=== PATIENT | female | born 1955 | race Caucasian/White ===

== ENCOUNTER 2016-09-01 11:43 | Emergency (ER) | payer BC ==
[2016-09-01 11:54] VITALS: TEMP 97.5
--- NOTE | 2016-09-01 12:36 | ED ---
General Adult HPI - General Chief complaint: Recheck/Abnormal Lab/Rx Stated complaint: Hypertension Time Seen by Provider: 09/01/16 12:19 Source: patient Mode of arrival: ambulatory Limitations: no limitations - History of Present Illness Initial comments: 60-year-old female presents with headache this morning her blood pressure was elevated to 180/117. She's had no blurry vision or double vision no focal numbness or weakness no nausea no vomiting no stiff neck. Blood pressure here is much improved. Several long history of hypertension only takes hydrochlorothiazide states her last visit was satisfactory. She also states for quite sometime she's had some intermittent swelling in anterior neck and submandibular area with some burning in the tip of her tongue. She has no nausea vomiting no chest pain no shortness of breath no nausea vomiting diarrhea. - Related Data Home Medications Medication Instructions Recorded Confirmed Aspirin 81 mg PO DAILY 06/18/14 09/01/16 Hydrochlorothiazide 25 mg PO DAILY 06/18/14 09/01/16 Citalopram Hydrobromide [CeleXA] 20 mg PO DAILY 06/21/16 09/01/16 Risedronate Sodium 150 mg PO Q28D 09/01/16 09/01/16 Previous Rx's Medication Instructions Recorded amLODIPine [Norvasc] 5 mg PO DAILY #7 tab 09/01/16 Allergies Allergy/AdvReac Type Severity Reaction Status Date / Time No Known Allergies Allergy Verified 09/01/16 14:24 Review of Systems ROS Statement: Those systems with pertinent positive or pertinent negative responses have been documented in the HPI. ROS Other: All systems not noted in ROS Statement are negative. Constitutional: Denies: fever Eyes: Denies: eye pain, eye discharge ENT: Denies: ear pain, throat pain Respiratory: Denies: cough Cardiovascular: Denies: chest pain Gastrointestinal: Denies: abdominal pain, nausea, vomiting Genitourinary: Denies: urgency, dysuria, frequency Skin: Denies: rash Neurological: Reports: headache. Denies: weakness Psychiatric: Denies: anxiety, depression Hematological/Lymphatic: Denies: easy bleeding, easy bruising Past Medical History Past Medical History: Hypertension, Thyroid Disorder Additional Past Medical History / Comment(s): cataracts History of Any Multi-Drug Resistant Organisms: None Reported Past Surgical History: Adenoidectomy, Section, Hysterectomy, Joint Replacement, Tonsillectomy Additional Past Surgical History / Comment(s): disc fusions in the neck and back. bunionectomy, eye surgery Past Psychological History: Anxiety Additional Psychological History / Comment(s): taking valium prior to Thyroid biopsy scheduled for Jun 21 Smoking Status: Current every day smoker Past Alcohol Use History: None Reported Past Drug Use History: None Reported General Exam Limitations: no limitations General appearance: alert Head exam: Present: atraumatic Eye exam: Present: normal appearance, PERRL, EOMI ENT exam: Present: normal oropharynx, mucous membranes moist, TM's normal bilaterally Neck exam: Present: normal inspection. Absent: tenderness, meningismus Respiratory exam: Present: normal lung sounds bilaterally Cardiovascular Exam: Present: regular rate, normal heart sounds GI/Abdominal exam: Present: soft. Absent: tenderness, guarding Neurological exam: Present: alert, CN II-XII intact Psychiatric exam: Present: normal affect, normal mood Skin exam: Present: warm, dry Course Vital Signs 09/01/16 09/01/16 11:52 13:40 Temperature 97.5 F L Pulse Rate 89 79 Respiratory 20 16 Rate Blood Pressure 158/85 137/83 O2 Sat by Pulse 99 95 Oximetry Medical Decision Making - Medical Decision Making Blood pressures normalized still has somewhat of a headache with the recurrent swelling question of it could be secondary to her hydrochlorothiazide may be inadequate to smooth out her blood pressure would discontinue the hydrochlorothiazide started on Norvasc 5 mg daily and give her 7 days pending seeing her physician. May use Tylenol or Motrin. - Lab Data Result diagrams: 09/01/16 13:10 09/01/16 13:10 Lab Results 09/01/16 09/01/16 Range/Units 13:10 13:10 WBC 6.9 (3.8-10.6) k/uL RBC 5.26 (3.80-5.40) m/uL Hgb 15.3 (11.4-16.0) gm/dL Hct 47.4 H (34.0-46.0) % MCV 90.2 (80.0-100.0) fL MCH 29.0 (25.0-35.0) pg MCHC 32.2 (31.0-37.0) g/dL RDW 13.3 (11.5-15.5) % Plt Count 206 (150-450) k/uL Neutrophils % 77 % Lymphocytes % 10 % Monocytes % 6 % Eosinophils % 3 % Basophils % 1 % Neutrophils # 5.3 (1.3-7.7) k/uL Lymphocytes # 0.7 L (1.0-4.8) k/uL Monocytes # 0.4 (0-1.0) k/uL Eosinophils # 0.2 (0-0.7) k/uL Basophils # 0.1 (0-0.2) k/uL Sodium 143 (137-145) mmol/L Potassium 4.2 (3.5-5.1) mmol/L Chloride 103 (98-107) mmol/L Carbon Dioxide 30 (22-30) mmol/L Anion Gap 10 mmol/L BUN 20 H (7-17) mg/dL Creatinine 0.82 (0.52-1.04) mg/dL Est GFR (MDRD) Af Amer >60 (>60 ml/min/1.73 sqM) Est GFR (MDRD) Non-Af >60 (>60 ml/min/1.73 sqM) Glucose 90 (74-99) mg/dL Calcium 10.0 (8.4-10.2) mg/dL Total Bilirubin 0.8 (0.2-1.3) mg/dL AST 23 (14-36) U/L ALT 30 (9-52) U/L Alkaline Phosphatase 68 (38-126) U/L Total Protein 7.2 (6.3-8.2) g/dL Albumin 4.5 (3.5-5.0) g/dL - EKG Data -: EKG Interpreted by Me 09/01/16 14:09 ECG 09/02/1999 01/03/1929 ventricular rate 70 bpm, NJ interval 136 ms, QRS duration 78 ms, QT interval 396 ms normal sinus rhythm normal ECG - Radiology Data Radiology results: report reviewed CT no abnormalities Disposition Clinical Impression: Headache, Elevated blood pressure reading, Hypertension Disposition: HOME SELF-CARE Condition: Good Instructions: Hypertension (ED) Additional Instructions: Discontinue hydrochlorothiazide, start Norvasc and see Dr. Chadwick this week. May use Tylenol or ibuprofen or Aleve for headache. Prescriptions: amLODIPine [Norvasc] 5 mg PO DAILY #7 tab Time of Disposition: 14:35
[2016-09-01 13:24] LABS: Basophils # (A) 0.1 k/uL (0-0.2); Basophils % (A) 1 %; CHCM 33.4; Eosinophils # (A) 0.2 k/uL (0-0.7); Eosinophils % (A) 3 %; HCT 47.4 % (34.0-46.0); HDW 2.36; HGB 15.3 gm/dL (11.4-16.0); Luc % (Auto) 3; Lymphocytes # (A) 0.7 k/uL (1.0-4.8); Lymphocytes % (A) 10 %; MCHC 32.2 g/dL (31.0-37.0); MCV 90.2 fL (80.0-100.0); Mean Platelet Volume 7.4; Monocytes # (A) 0.4 k/uL (0-1.0); Monocytes % (A) 6 %; Neutrophils # (A) 5.3 k/uL (1.3-7.7); Neutrophils % (A) 77 %; RBC 5.26 m/uL (3.80-5.40); RDW 13.3 % (11.5-15.5); WBC 6.9 k/uL (3.8-10.6); WBC (Perox) 7.13
[2016-09-01 13:28] LABS: ALT 30 U/L (9-52); AST 23 U/L (14-36); Alkaline Phosphatase 68 U/L (38-126); Anion Gap 10 mmol/L; Blood Urea Nitrogen 20 mg/dL (7-17); Carbon Dioxide 30 mmol/L (22-30); Chloride 103 mmol/L (98-107); Glucose 90 mg/dL (74-99); Non-African American GFR(MDRD) >60 (>60 ml/min/1.73 sqM); Potassium 4.2 mmol/L (3.5-5.1); Sodium 143 mmol/L (137-145); Total Bilirubin 0.8 mg/dL (0.2-1.3); Total Protein 7.2 g/dL (6.3-8.2)
[2016-09-01 13:42] VITALS: BP 137/83; PULSE 79; RESP 16
--- NOTE | 2016-09-01 13:47 | CT ---
EXAMINATION TYPE: CT brain wo con DATE OF EXAM: 09/01/2016 1:41 PM COMPARISON: NONE HISTORY: Headache and Hypertension CT DLP: 1029.9 mGycm Automated exposure control for dose reduction was used. FINDINGS: Ventricles and sulci appear normal. There is no mass effect nor midline shift. There is no sign of in tracranial hemorrhage. The calvarium is intact. IMPRESSION: Negative unenhanced head CT scan. No change.
== END 2016-09-01 14:50 | disposition home or self-care (01) ==
LOC: EC 11:43
DX: I10 Essential (primary) hypertension (principal); F41.9 Anxiety disorder, unspecified; F17.200 Nicotine dependence, unspecified, uncomplicated; Z79.82 Long term (current) use of aspirin; Z79.899 Other long term (current) drug therapy
CPT/HCPCS: 36415; 70450; 80053; 85025; 93005; 99284

== ENCOUNTER 2016-09-05 10:41 | Emergency (ER) | payer BC ==
[2016-09-05 10:48] VITALS: TEMP 97.3
[2016-09-05] MEDS ORDERED: SODIUM CHLORIDE 0.9% 500 ML IV STA (11:44)
[2016-09-05] MEDS ORDERED: hydrALAZINE HCL 20 MG/ML 1 ML VIAL IVP STA (11:51)
--- NOTE | 2016-09-05 11:54 | ED ---
General Adult HPI - General Chief complaint: Recheck/Abnormal Lab/Rx Stated complaint: HTN Time Seen by Provider: 09/05/16 11:45 Source: patient, RN notes reviewed Mode of arrival: ambulatory Limitations: no limitations - History of Present Illness Initial comments: This is a 60-year-old female presents emergency Department with a past medical history significant for high blood pressure. Patient states she was recently in the emergency department for hypertension. Patient states she seen her primary medical care doctor and they have attempted to change her medications. Patient states today she started getting very mild headache she took a blood pressure work and it was elevated so she came to the emergency department. Patient states she has no significant headache at this time. Patient denies numbness weakness per patient denies blurred vision. Patient denies chest pain palpitations difficult breathing shortness of breath. Patient denies any abdominal pain. Patient denies nausea vomiting diarrhea. Patient denies any back pain. Patient denies any recent injury or trauma. - Related Data Home Medications Medication Instructions Recorded Confirmed Aspirin 81 mg PO DAILY 06/18/14 09/05/16 Citalopram Hydrobromide [CeleXA] 20 mg PO DAILY 06/21/16 09/05/16 Risedronate Sodium 150 mg PO Q28D 09/01/16 09/05/16 amLODIPine [Norvasc] 10 mg PO DAILY 09/05/16 09/05/16 Allergies Allergy/AdvReac Type Severity Reaction Status Date / Time No Known Allergies Allergy Verified 09/05/16 11:42 Review of Systems ROS Statement: Those systems with pertinent positive or pertinent negative responses have been documented in the HPI. ROS Other: All systems not noted in ROS Statement are negative. Past Medical History Past Medical History: Hypertension, Thyroid Disorder Additional Past Medical History / Comment(s): cataracts, back pain History of Any Multi-Drug Resistant Organisms: None Reported Past Surgical History: Adenoidectomy, Section, Hysterectomy, Joint Replacement, Tonsillectomy Additional Past Surgical History / Comment(s): disc fusions in the neck and back. bunionectomy, eye surgery Past Psychological History: Anxiety Additional Psychological History / Comment(s): taking valium prior to Thyroid biopsy scheduled for Jun 21 Smoking Status: Current every day smoker Past Alcohol Use History: None Reported Past Drug Use History: None Reported General Exam - General Exam Comments Initial Comments: GENERAL: Patient is well-developed and well-nourished. Patient is nontoxic and well- hydrated and is in no acute distress. ENT: Neck is soft and supple. No significant lymphadenopathy is noted. Oropharynx is clear. Moist mucous membranes. Neck has full range of motion without eliciting any pain. EYES: The sclera were anicteric and conjunctiva were pink and moist. Extraocular movements were intact and pupils were equal round and reactive to light. Eyelids were unremarkable. PULMONARY: Unlabored respirations. Good breath sounds bilaterally. No audible rales rhonchi or wheezing was noted. CARDIOVASCULAR: There is a regular rate and rhythm without any murmurs gallops or rubs. ABDOMEN: Soft and nontender with normal bowel sounds. No palpable organomegaly was noted. There is no palpable pulsatile mass. SKIN: Skin is clear with no lesions or rashes and otherwise unremarkable. NEUROLOGIC: Patient is alert and oriented x3. Cranial nerves II through XII are grossly intact. Motor and sensory are also intact. Normal speech, volume and content. Symmetrical smile. MUSCULOSKELETAL: Normal extremities with adequate strength and full range of motion. No lower extremity swelling or edema. No calf tenderness. LYMPHATICS: No significant lymphadenopathy is noted PSYCHIATRIC: Normal psychiatric evaluation. Normal interpersonal interactions appears functionally intact in deals appropriately with others. No signs of depression. No signs of anxiety. Limitations: no limitations Course Vital Signs 09/05/16 09/05/16 09/05/16 10:44 11:08 11:19 Temperature 97.3 F L Pulse Rate 92 81 Pulse Rate [ 82 Bilateral Posterior Tibial] Respiratory 18 15 Rate Blood Pressure 172/100 151/90 O2 Sat by Pulse 98 96 Oximetry 09/05/16 09/05/16 09/05/16 12:22 12:51 13:10 Temperature Pulse Rate 70 76 81 Pulse Rate [ Bilateral Posterior Tibial] Respiratory 18 18 18 Rate Blood Pressure 151/93 150/94 141/89 O2 Sat by Pulse 97 97 96 Oximetry Medical Decision Making - Medical Decision Making EKG shows normal sinus rhythm at 81 bpm SC interval is on a 34 QRS 78 QT interval 384 QTC is 446 per patient's EKG shows no ST segment elevation or depression or T-wave abdomen is noted. Chest x-ray is normal. Patient was given hydralazine blood pressure came down nicely patient understands he needs to follow-up with her primary medical care doctor and also document daily her blood pressures. - Lab Data Result diagrams: 09/05/16 11:20 09/05/16 11:20 Lab Results 09/05/16 09/05/16 09/05/16 Range/Units 11:20 11:20 11:20 WBC 7.0 (3.8-10.6) k/uL RBC 4.70 (3.80-5.40) m/uL Hgb 14.4 (11.4-16.0) gm/dL Hct 43.0 (34.0-46.0) % MCV 91.6 (80.0-100.0) fL MCH 30.7 (25.0-35.0) pg MCHC 33.5 (31.0-37.0) g/dL RDW 13.3 (11.5-15.5) % Plt Count 205 (150-450) k/uL Neutrophils % 71 % Lymphocytes % 15 % Monocytes % 7 % Eosinophils % 2 % Basophils % 1 % Neutrophils # 5.0 (1.3-7.7) k/uL Lymphocytes # 1.0 (1.0-4.8) k/uL Monocytes # 0.5 (0-1.0) k/uL Eosinophils # 0.2 (0-0.7) k/uL Basophils # 0.1 (0-0.2) k/uL PT (9.0-12.0) sec INR (<1.1) APTT (22.0-30.0) sec Sodium 143 (137-145) mmol/L Potassium 4.0 (3.5-5.1) mmol/L Chloride 108 H (98-107) mmol/L Carbon Dioxide 24 (22-30) mmol/L Anion Gap 11 mmol/L BUN 14 (7-17) mg/dL Creatinine 0.63 (0.52-1.04) mg/dL Est GFR (MDRD) Af Amer >60 (>60 ml/min/1.73 sqM) Est GFR (MDRD) Non-Af >60 (>60 ml/min/1.73 sqM) Glucose 94 (74-99) mg/dL Calcium 9.8 (8.4-10.2) mg/dL Magnesium 2.1 (1.6-2.3) mg/dL Total Bilirubin 0.7 (0.2-1.3) mg/dL AST 24 (14-36) U/L ALT 37 (9-52) U/L Alkaline Phosphatase 66 (38-126) U/L Total Creatine Kinase 131 (30-135) U/L CK-MB (CK-2) 1.3 (0.0-2.4) ng/mL CK-MB (CK-2) Rel Index 1.0 Troponin I <0.012 (0.000-0.034) ng/mL Total Protein 7.2 (6.3-8.2) g/dL Albumin 4.6 (3.5-5.0) g/dL 09/05/16 Range/Units 11:20 WBC (3.8-10.6) k/uL RBC (3.80-5.40) m/uL Hgb (11.4-16.0) gm/dL Hct (34.0-46.0) % MCV (80.0-100.0) fL MCH (25.0-35.0) pg MCHC (31.0-37.0) g/dL RDW (11.5-15.5) % Plt Count (150-450) k/uL Neutrophils % % Lymphocytes % % Monocytes % % Eosinophils % % Basophils % % Neutrophils # (1.3-7.7) k/uL Lymphocytes # (1.0-4.8) k/uL Monocytes # (0-1.0) k/uL Eosinophils # (0-0.7) k/uL Basophils # (0-0.2) k/uL PT 9.6 (9.0-12.0) sec INR 0.9 (<1.1) APTT 23.9 (22.0-30.0) sec Sodium (137-145) mmol/L Potassium (3.5-5.1) mmol/L Chloride (98-107) mmol/L Carbon Dioxide (22-30) mmol/L Anion Gap mmol/L BUN (7-17) mg/dL Creatinine (0.52-1.04) mg/dL Est GFR (MDRD) Af Amer (>60 ml/min/1.73 sqM) Est GFR (MDRD) Non-Af (>60 ml/min/1.73 sqM) Glucose (74-99) mg/dL Calcium (8.4-10.2) mg/dL Magnesium (1.6-2.3) mg/dL Total Bilirubin (0.2-1.3) mg/dL AST (14-36) U/L ALT (9-52) U/L Alkaline Phosphatase (38-126) U/L Total Creatine Kinase (30-135) U/L CK-MB (CK-2) (0.0-2.4) ng/mL CK-MB (CK-2) Rel Index Troponin I (0.000-0.034) ng/mL Total Protein (6.3-8.2) g/dL Albumin (3.5-5.0) g/dL Disposition Clinical Impression: Hypertension Disposition: HOME SELF-CARE Condition: Good Instructions: Hypertension (ED) Referrals: Carmelita Chadwick MD [Primary Care Provider] - 1-2 days Time of Disposition: 13:33
--- NOTE | 2016-09-05 12:27 | XR ---
EXAMINATION TYPE: XR chest 2V DATE OF EXAM: 09/05/2016 12:13 PM COMPARISON: 04/27/2015 TECHNIQUE: PA and lateral views submitted. HISTORY: Chest pain FINDINGS: The lungs are clear and there is no pneumothorax, pleural effusion, or focal pneumonia. Postsurgica l change overlying the cervical spine. IMPRESSION: 1. No acute process.
[2016-09-05 12:28] LABS: Basophils # (A) 0.1 k/uL (0-0.2); Basophils % (A) 1 %; CH 30.3; CHCM 33.2; Eosinophils # (A) 0.2 k/uL (0-0.7); Eosinophils % (A) 2 %; HDW 2.36; HGB 14.4 gm/dL (11.4-16.0); Luc # (Auto) 0.25; Luc % (Auto) 4; Lymphocytes % (A) 15 %; MCH 30.7 pg (25.0-35.0); MCHC 33.5 g/dL (31.0-37.0); MCV 91.6 fL (80.0-100.0); Mean Platelet Volume 8.7; Monocytes # (A) 0.5 k/uL (0-1.0); Monocytes % (A) 7 %; Neutrophils % (A) 71 %; RDW 13.3 % (11.5-15.5)
[2016-09-05 12:39] LABS: INR 0.9 (<1.1); Partial Thromboplastin Time 23.9 sec (22.0-30.0); Prothrombin Time 9.6 sec (9.0-12.0)
[2016-09-05 12:42] LABS: ALT 37 U/L (9-52); AST 24 U/L (14-36); Alkaline Phosphatase 66 U/L (38-126); Anion Gap 11 mmol/L; Blood Urea Nitrogen 14 mg/dL (7-17); Calcium 9.8 mg/dL (8.4-10.2); Carbon Dioxide 24 mmol/L (22-30); Chloride 108 mmol/L (98-107); Glucose 94 mg/dL (74-99); Magnesium 2.1 mg/dL (1.6-2.3); Non-African American GFR(MDRD) >60 (>60 ml/min/1.73 sqM); Sodium 143 mmol/L (137-145); Total Bilirubin 0.7 mg/dL (0.2-1.3); Total Protein 7.2 g/dL (6.3-8.2)
[2016-09-05 13:03] LABS: Creatine Kinase 131 U/L (30-135)
[2016-09-05 13:16] LABS: Creatine Kinase MB 1.3 ng/mL (0.0-2.4); Troponin I <0.012 ng/mL (0.000-0.034)
[2016-09-05 14:52] VITALS: BP 138/82; PULSE 80; RESP 16
== END 2016-09-05 15:02 | disposition home or self-care (01) ==
LOC: EC 10:41
DX: I10 Essential (primary) hypertension (principal); F41.9 Anxiety disorder, unspecified; F17.200 Nicotine dependence, unspecified, uncomplicated; Z79.82 Long term (current) use of aspirin; Z79.899 Other long term (current) drug therapy
CPT/HCPCS: 36415; 93005; 80053; 82550; 82553; 83735; 84484; 85025; 85610; 85730; 71020; 99284; 96374; 96361 ×2; J0360

== ENCOUNTER → 2016-09-14 | Outpatient (CLI) | payer BC ==
--- NOTE | 2016-09-14 23:16 | MR ---
EXAMINATION TYPE: MR cspine/lspine wo/w con DATE OF EXAM: 09/14/2016 6:15 PM COMPARISON: NONE HISTORY: Low back pain and Neck pain CONTRAST: Standard multiplanar, multisequence MRI departmental protocol utilizing 20 mL intravenous MultiHance gadolinium contrast. FINDINGS: There is mild straightening of the cervical spine. There is metal artifact from anterior fu any surgery at C4-5. Cervical spinal cord shows no edema. There is a moderate-sized posterior disc h erniation at C5-6 into the spinal canal. There is flattening of the cervical spinal cord. The canal i s narrowed to 5 mm. There is small posterior disc herniation at C6-7. There is a mild to moderate pos terior disc herniation at C3-4. The brainstem is intact. I see no focal bone destruction. I see no pa thologic enhancement in the cervical spine. The lumbar vertebra have normal alignment. There is some narrowing at L5-S1 disc space. There are sma ll posterior disc bulges at L4-5 and L5-S1 without significant impingement on the spinal canal. There is no lumbar paraspinal mass. Lumbar nerve roots appear fairly normal. There is bilateral L4-5 and L 5-S1 neural foraminal impingement due to some facet arthropathy and mild disc space narrowing. There is no focal bone destruction. There is no pathologic enhancement in the lumbar spine. IMPRESSION: The cervical spine shows a large posterior disc herniation at C5-6 with 5 mm moderately severe spinal stenosis. There are smaller posterior disc herniations at C3-4 and C6-7 with less severe impingement on the cord. There are small posterior disc herniations at L4-5 L5-S1 without significant impingement on the spina l canal. There is mild neural foraminal narrowing at L4-5 L5-S1 due to some facet arthropathy and mil d disc space narrowing.
== END | disposition home or self-care (01) ==
LOC: RADMRIMAIN 16:29
PROVIDERS: ATTEND Orthopaedic Surgery Orthopaedic Surgery of the Spine
DX: M48.07 Spinal stenosis, lumbosacral region (principal); M99.73 Connective tissue and disc stenosis of intervertebral foramina of lumbar region; M51.17 Intervertebral disc disorders with radiculopathy, lumbosacral region; M46.97 Unspecified inflammatory spondylopathy, lumbosacral region; M48.02 Spinal stenosis, cervical region; M50.21 Other cervical disc displacement, high cervical region
CPT/HCPCS: 72156; 72158; A9577

== ENCOUNTER → 2017-01-04 | Outpatient (CLI) | payer BC, OTHER ==
--- NOTE | 2017-01-04 12:12 | XR ---
Cervical spine with flexion and extension views HISTORY: Neck pain 7 views of the cervical spine Correlation to cervical MRI dated 09/14/2016 Patient is status post anterior cervical fusion and discectomy at C4-C7. Surgical clips are present i n the anterior neck. There is loss of normal cervical lordosis. Near anatomic alignment present. Inte rvertebral spacing material noted. No evident listhesis on flexion and extension views. Screws are no t present at the C6 level. Neural foraminal encroachment present at C6-7 bilaterally as well as on th e right side at C5-6. IMPRESSION: Postop follow-up. Additional findings above.
== END | disposition home or self-care (01) ==
LOC: RADXRMAIN 09:46
PROVIDERS: ATTEND Neurological Surgery
DX: M54.2 Cervicalgia (principal); Z98.890 Other specified postprocedural states
CPT/HCPCS: 72052

== ENCOUNTER → 2017-03-25 | Outpatient (CLI) | payer BC, OTHER ==
--- NOTE | 2017-03-25 12:33 | XR ---
EXAMINATION TYPE: XR cervical spine w flex/ext DATE OF EXAM: 03/25/2017 TECHNIQUE: Frontal, lateral, oblique, dynamic flexion-extension lateral views, and open mouth view of the cervical spine are obtained. HISTORY: R52 pain cervical fusion progress study. Attention C7-T1 level per order. COMPARISON: Cervical spine x-ray January 04, 2017 FINDINGS: The cervical spine is visualized in its entirety from C1 thru the top of T1 level, it is s table and straightened in alignment without evidence of acute fracture or dislocation. There is redem onstration artificial disc material C4-C5 level. There appears to be ossific fusion C5-C6 level. Ante rior fusion plate from C4 through C7 levels with additional C5 screws is redemonstrated. There likely is also ossific fusion C5-C6 level redemonstrated. Dynamic images show limited flexion and extension . Vertebral body heights and disc space heights above surgical levels are within normal limits. There are surgical clips in the anterior left soft tissue redemonstrated. Right oblique image is technical ly suboptimal. Left oblique image is stable and satisfactory. Interval resolution of subcutaneous air noted. C7-T1 disc space is felt stable and within normal limits. IMPRESSION: As above, desired arthrodesis with straightened and satisfactory alignment.
== END | disposition home or self-care (01) ==
LOC: RADXRMAIN 11:39
PROVIDERS: ATTEND Neurological Surgery
DX: M54.2 Cervicalgia (principal); Z98.1 Arthrodesis status
CPT/HCPCS: 72052

== ENCOUNTER 2017-07-11 01:53 | Observation (INO) | payer BC, OTHER ==
[2017-07-11] MEDS ORDERED: ACETAMINOPHEN TAB 325 MG TAB PO STA (02:25)
[2017-07-11] MEDS ORDERED: SODIUM CHLORIDE 0.9% 1,000 ML IV STA (02:25)
--- NOTE | 2017-07-11 02:41 | ED ---
General Adult HPI - General Source: patient, RN notes reviewed Mode of arrival: ambulatory Limitations: no limitations <Gab Machado - Last Filed: 07/11/17 03:32> <Clayton Perez - Last Filed: 07/11/17 03:43> - General Chief complaint: Urogenital Stated complaint: chills Time Seen by Provider: 07/11/17 02:13 - History of Present Illness Initial comments: This a 61-year-old female presents emergency Department chief complaint fever or chills vaginal bleeding. Patient states that she noticed today that she's been having chills she noticed some dysuria. Patient also states that she had sexual intercourse for the first time in 10 years ton and states that after she noticed that she had some vaginal bleeding. She states is bright red she does admit to some pain when she tries to urinate but denies any vaginal pain otherwise. Patient denies any forceful trauma. Patient states that the bleeding is slowing down. Patient denies any URI symptoms denies sore throat, cough, chest congestion, chest pain, palpitations, nausea, vomiting diarrhea constipation. (Gab Machado) - Related Data Home Medications Medication Instructions Recorded Confirmed Aspirin 81 mg PO DAILY 06/18/14 07/11/17 Citalopram Hydrobromide [CeleXA] 20 mg PO DAILY 06/21/16 07/11/17 Risedronate Sodium 150 mg PO Q28D 09/01/16 07/11/17 amLODIPine [Norvasc] 10 mg PO DAILY 09/05/16 07/11/17 Allergies Allergy/AdvReac Type Severity Reaction Status Date / Time No Known Allergies Allergy Verified 07/11/17 02:07 Review of Systems ROS Other: All systems not noted in ROS Statement are negative. <Gab Machado - Last Filed: 07/11/17 03:32> ROS Other: All systems not noted in ROS Statement are negative. <Clayton Perez - Last Filed: 07/11/17 03:43> ROS Statement: Those systems with pertinent positive or pertinent negative responses have been documented in the HPI. Past Medical History Past Medical History: Hypertension, Thyroid Disorder Additional Past Medical History / Comment(s): cataracts, back pain History of Any Multi-Drug Resistant Organisms: None Reported Past Surgical History: Adenoidectomy, Section, Hysterectomy, Joint Replacement, Tonsillectomy Additional Past Surgical History / Comment(s): disc fusions in the neck and back. bunionectomy, eye surgery Past Psychological History: Anxiety Smoking Status: Current every day smoker Past Alcohol Use History: None Reported Past Drug Use History: None Reported <Gab Machado - Last Filed: 07/11/17 03:32> General Exam Limitations: no limitations General appearance: alert, in no apparent distress Head exam: Present: atraumatic, normocephalic, normal inspection Eye exam: Present: normal appearance, PERRL, EOMI. Absent: scleral icterus, conjunctival injection, periorbital swelling ENT exam: Present: normal exam, normal oropharynx, mucous membranes moist, TM's normal bilaterally Neck exam: Present: normal inspection, full ROM. Absent: tenderness, meningismus, lymphadenopathy Respiratory exam: Present: normal lung sounds bilaterally. Absent: respiratory distress, wheezes, rales, rhonchi, stridor Cardiovascular Exam: Present: normal rhythm, tachycardia, normal heart sounds. Absent: systolic murmur, diastolic murmur, rubs, gallop, clicks GI/Abdominal exam: Present: soft, normal bowel sounds. Absent: distended, tenderness, guarding, rebound, rigid External exam: Present: normal external exam, other (Exam performed with Josey RN) Speculum exam: Present: vaginal bleeding, laceration (There is a small laceration with blood clot noted, no active bleeding) Skin exam: Present: warm, dry, intact, normal color. Absent: rash <Gab Machado - Last Filed: 07/11/17 03:32> Course <Gab Machado - Last Filed: 07/11/17 03:32> <Clayton Perez - Last Filed: 07/11/17 03:43> Vital Signs 07/11/17 07/11/17 02:04 03:25 Temperature 100.2 F H Pulse Rate 132 H 102 H Respiratory 20 18 Rate Blood Pressure 140/89 145/60 O2 Sat by Pulse 97 97 Oximetry - Reevaluation(s) Reevaluation #1: 07/11/17 03:42 Patient was reevaluated by myself, Dr. Perez. Patient does meet criteria for severe sepsis diagnosed at 3:42 AM. Blood cultures and lactic acid and IV antibiotics have been ordered. Case was discussed with practitioner Nakita, who will admit for Dr. Chin, covering for Dr. Bains. Patient was updated. (Clayton Perez) Medical Decision Making - Lab Data Result diagrams: 07/11/17 02:42 07/11/17 02:42 <Gab Machado - Last Filed: 07/11/17 03:32> - Lab Data Result diagrams: 07/11/17 02:42 07/11/17 02:42 <Clayton Perez - Last Filed: 07/11/17 03:43> - Medical Decision Making 61-year-old female presented emergency department for chills, vaginal bleeding dysuria. Patient Atelectatic Acid of 3.0, Mild leukocytosis, along with being tachycardic and fever. Concerns for severe sepsis. Patient will be given Rocephin, admitted for IV antibiotics, pending urine and blood culture. (Gab Machado) - Lab Data Lab Results 07/11/17 07/11/17 07/11/17 Range/Units 02:31 02:31 02:42 WBC 11.1 H (3.8-10.6) k/uL RBC 4.93 (3.80-5.40) m/uL Hgb 14.5 (11.4-16.0) gm/dL Hct 45.7 (34.0-46.0) % MCV 92.9 (80.0-100.0) fL MCH 29.4 (25.0-35.0) pg MCHC 31.6 (31.0-37.0) g/dL RDW 14.7 (11.5-15.5) % Plt Count 179 (150-450) k/uL Neutrophils % 90 % Lymphocytes % 3 % Monocytes % 3 % Eosinophils % 2 % Basophils % 1 % Neutrophils # 10.0 H (1.3-7.7) k/uL Lymphocytes # 0.4 L (1.0-4.8) k/uL Monocytes # 0.3 (0-1.0) k/uL Eosinophils # 0.3 (0-0.7) k/uL Basophils # 0.1 (0-0.2) k/uL Sodium (137-145) mmol/L Potassium (3.5-5.1) mmol/L Chloride (98-107) mmol/L Carbon Dioxide (22-30) mmol/L Anion Gap mmol/L BUN (7-17) mg/dL Creatinine (0.52-1.04) mg/dL Est GFR (MDRD) Af Amer (>60 ml/min/1.73 sqM) Est GFR (MDRD) Non-Af (>60 ml/min/1.73 sqM) Glucose (74-99) mg/dL Plasma Lactic Acid Damon (0.7-2.0) mmol/L Calcium (8.4-10.2) mg/dL Total Bilirubin (0.2-1.3) mg/dL AST (14-36) U/L ALT (9-52) U/L Alkaline Phosphatase (38-126) U/L Total Protein (6.3-8.2) g/dL Albumin (3.5-5.0) g/dL Urine Color Yellow Urine Appearance Clear (Clear) Urine pH 5.0 (5.0-8.0) Ur Specific [place] 1.015 (1.001-1.035) Urine Protein Negative (Negative) Urine Glucose (UA) Negative (Negative) Urine Ketones Negative (Negative) Urine Blood Large H (Negative) Urine Nitrite Negative (Negative) Urine Bilirubin Negative (Negative) Urine Urobilinogen <2.0 (<2.0) mg/dL Ur Leukocyte Esterase Small H (Negative) Urine RBC >182 H (0-5) /hpf Urine WBC 12 H (0-5) /hpf Ur Squamous Epith Cells <1 (0-4) /hpf Urine Bacteria Rare H (None) /hpf Urine Mucus Rare H (None) /hpf Influenza Type A RNA Not Detected (Not Detectd) Influenza Type B (PCR) Not Detected (Not Detectd) 07/11/17 07/11/17 Range/Units 02:42 02:42 WBC (3.8-10.6) k/uL RBC (3.80-5.40) m/uL Hgb (11.4-16.0) gm/dL Hct (34.0-46.0) % MCV (80.0-100.0) fL MCH (25.0-35.0) pg MCHC (31.0-37.0) g/dL RDW (11.5-15.5) % Plt Count (150-450) k/uL Neutrophils % % Lymphocytes % % Monocytes % % Eosinophils % % Basophils % % Neutrophils # (1.3-7.7) k/uL Lymphocytes # (1.0-4.8) k/uL Monocytes # (0-1.0) k/uL Eosinophils # (0-0.7) k/uL Basophils # (0-0.2) k/uL Sodium 143 (137-145) mmol/L Potassium 3.9 (3.5-5.1) mmol/L Chloride 107 (98-107) mmol/L Carbon Dioxide 25 (22-30) mmol/L Anion Gap 11 mmol/L BUN 20 H (7-17) mg/dL Creatinine 0.80 (0.52-1.04) mg/dL Est GFR (MDRD) Af Amer >60 (>60 ml/min/1.73 sqM) Est GFR (MDRD) Non-Af >60 (>60 ml/min/1.73 sqM) Glucose 143 H (74-99) mg/dL Plasma Lactic Acid Damon 3.0 H* (0.7-2.0) mmol/L Calcium 10.1 (8.4-10.2) mg/dL Total Bilirubin 0.8 (0.2-1.3) mg/dL AST 19 (14-36) U/L ALT 37 (9-52) U/L Alkaline Phosphatase 79 (38-126) U/L Total Protein 6.8 (6.3-8.2) g/dL Albumin 4.4 (3.5-5.0) g/dL Urine Color Urine Appearance (Clear) Urine pH (5.0-8.0) Ur Specific [place] (1.001-1.035) Urine Protein (Negative) Urine Glucose (UA) (Negative) Urine Ketones (Negative) Urine Blood (Negative) Urine Nitrite (Negative) Urine Bilirubin (Negative) Urine Urobilinogen (<2.0) mg/dL Ur Leukocyte Esterase (Negative) Urine RBC (0-5) /hpf Urine WBC (0-5) /hpf Ur Squamous Epith Cells (0-4) /hpf Urine Bacteria (None) /hpf Urine Mucus (None) /hpf Influenza Type A RNA (Not Detectd) Influenza Type B (PCR) (Not Detectd) Disposition Time of Disposition: 03:29 <Gab Machado - Last Filed: 07/11/17 03:32> <Clayton Perez - Last Filed: 07/11/17 03:43> Clinical Impression: Vaginal laceration, UTI (urinary tract infection), Sepsis Disposition: ADMITTED IP TO THIS HOSP Condition: Stable Referrals: Carmelita Chadwick MD [Primary Care Provider] - 1-2 days
[2017-07-11 02:43] LABS: Appearance,Urine Clear (Clear); Bacteria,Urine Rare /hpf; Bilirubin,Urine Negative (Negative); Blood,Urine Large (Negative); Color,Urine Yellow; Glucose,Urine (UA) Negative (Negative); Ketones,Urine Negative (Negative); Leukocyte Esterase,Urine Small (Negative); Mucus,Urine Rare /hpf; Nitrite,Urine Negative (Negative); Protein,Urine Negative (Negative); RBC,Urine >182 /hpf (0-5); Specific Gravity,Urine 1.015 (1.001-1.035); Squamous Epithelial Cell,Urine <1 /hpf (0-4); Urobilinogen,Urine <2.0 mg/dL (<2.0); WBC,Urine 12 /hpf (0-5)
[2017-07-11 02:54] LABS: Basophils # (A) 0.1 k/uL (0-0.2); Basophils % (A) 1 %; Eosinophils # (A) 0.3 k/uL (0-0.7); Eosinophils % (A) 2 %; HCT 45.7 % (34.0-46.0); HGB 14.5 gm/dL (11.4-16.0); Lymphocytes # (A) 0.4 k/uL (1.0-4.8); Lymphocytes % (A) 3 %; MCH 29.4 pg (25.0-35.0); MCHC 31.6 g/dL (31.0-37.0); MCV 92.9 fL (80.0-100.0); Mean Platelet Volume 8.2; Monocytes # (A) 0.3 k/uL (0-1.0); Monocytes % (A) 3 %; Neutrophils % (A) 90 %; Platelet Count 179 k/uL (150-450); RBC 4.93 m/uL (3.80-5.40); RDW 14.7 % (11.5-15.5); WBC 11.1 k/uL (3.8-10.6)
[2017-07-11 03:04] LABS: ALT 37 U/L (9-52); AST 19 U/L (14-36); Albumin 4.4 g/dL (3.5-5.0); Alkaline Phosphatase 79 U/L (38-126); Anion Gap 11 mmol/L; Blood Urea Nitrogen 20 mg/dL (7-17); Calcium 10.1 mg/dL (8.4-10.2); Carbon Dioxide 25 mmol/L (22-30); Chloride 107 mmol/L (98-107); Glucose 143 mg/dL (74-99); Potassium 3.9 mmol/L (3.5-5.1); Sodium 143 mmol/L (137-145); Total Bilirubin 0.8 mg/dL (0.2-1.3); Total Protein 6.8 g/dL (6.3-8.2)
[2017-07-11 03:26] VITALS: RESP 18
[2017-07-11] MEDS ORDERED: cefTRIAXone IN SWFI 1,000 MG/10 ML SYRINGE IVP STA (03:27)
[2017-07-11] MEDS ORDERED: ACETAMINOPHEN TAB 325 MG TAB PO PRN (03:29)
[2017-07-11] MEDS ORDERED: ONDANSETRON 4 MG/2 ML VIAL IVP PRN (03:29)
[2017-07-11] MEDS ORDERED: HYDROcodone/APAP 5-325MG 1 EACH TAB PO PRN (03:29)
[2017-07-11] MEDS ORDERED: SODIUM CHLORIDE 0.9% 1,000 ML IV SCH (03:30)
--- NOTE | 2017-07-11 03:38 | XR ---
EXAM: XR Chest, 2 Views CLINICAL HISTORY: Reason: fever TECHNIQUE: Frontal and lateral views of the chest. COMPARISON: 09/05/16 chest radiography FINDINGS: Lungs: Unremarkable. No consolidation. Pleural space: Unremarkable. No pneumothorax. Heart: Unremarkable. No cardiomegaly. Mediastinum: Unremarkable. Bones/joints: Cervicothoracic fusion hardware identified. No suspicious lytic or sclerotic lesions of bone. IMPRESSION: No acute cardiopulmonary disease.
[2017-07-11 05:07] VITALS: BMI 30.4
[2017-07-11 07:52] VITALS: BP 109/69; PULSE 91; TEMP 99
--- NOTE | 2017-07-11 11:52 | P.HPIM ---
History of Present Illness This a 61-year-old female presents emergency Department chief complaint fever or chills vaginal bleeding. Patient states that she noticed today that she's been having chills she noticed some dysuria. Patient also states that she had sexual intercourse for the first time in 10 years tonight and states that after she noticed that she had some vaginal bleeding. She states is bright red she does admit to some pain when she tries to urinate but denies any vaginal pain otherwise. Patient denies any forceful trauma. Patient states that the bleeding is slowing down. Patient denies any URI symptoms denies sore throat, cough, chest congestion, chest pain, palpitations, nausea, vomiting diarrhea constipation. Patient has irregular abnormal uterine patient was started on Rocephin with significant improvement in her symptoms ideally I would keep the patient underwent a get the urine cultures but patient wanted to go home because of which will go in and discharge the patient on ciprofloxacin for 5-7 days. Patient was febrile septic with elevated lactic acid on admission. Patient also is clinically doing well at this point of time patient did not have any UTIs in the past because of which I believe patient will do well with ciprofloxacin and patient doesn't have any ALLERGIES. Review of Systems REVIEW OF SYSTEMS: CONSTITUTIONAL: No fever, no malaise, no fatigue. HEENT: No recent visual problems or hearing problems. Denied any sore throat. CARDIOVASCULAR: No chest pain, orthopnea, PND, no palpitations, no syncope. PULMONARY: No shortness of breath, no cough, no hemoptysis. GASTROINTESTINAL: No diarrhea, no nausea, no vomiting, no abdominal pain. Normoactive bowel sounds. NEUROLOGICAL: No headaches, no weakness, no numbness. HEMATOLOGICAL: Denies any bleeding or petechiae. GENITOURINARY: As mentioned in HPI MUSCULOSKELETAL/RHEUMATOLOGICAL: Denies any joint pain, swelling, or any muscle pain. ENDOCRINE: Denies any polyuria or polydipsia. The rest of the 14-point review of systems is negative. Past Medical History Past Medical History: Hypertension, Thyroid Disorder Additional Past Medical History / Comment(s): cataracts, back pain, osteoporosis detiorating hip bones bilaterally from osteoporosis, has burning numbness and tingling from hips to feet bilaterally. History of Any Multi-Drug Resistant Organisms: None Reported Past Surgical History: Adenoidectomy, Section, Hysterectomy, Joint Replacement, Tonsillectomy Additional Past Surgical History / Comment(s): disc fusions in the neck and back. bunionectomy, eye surgery, right shoulder surgery Past Anesthesia/Blood Transfusion Reactions: No Reported Reaction Past Psychological History: Anxiety, Depression Smoking Status: Current every day smoker Past Alcohol Use History: None Reported Past Drug Use History: None Reported - Past Family History Father Family Medical History: Hypertension Medications and Allergies Home Medications Medication Instructions Recorded Confirmed Type Aspirin 81 mg PO DAILY 06/18/14 07/11/17 History Citalopram Hydrobromide [CeleXA] 20 mg PO DAILY 06/21/16 07/11/17 History Calcium Carbonate/Vitamin D3 1 tab PO DAILY 07/11/17 07/11/17 History [Calcium 500-Vit D3 200 Tablet] Losartan Potassium [Losartan 100 mg PO DAILY 07/11/17 07/11/17 History Potassium] Allergies Allergy/AdvReac Type Severity Reaction Status Date / Time No Known Allergies Allergy Verified 07/11/17 07:44 Physical Exam Vitals: Vital Signs Temp Pulse Pulse Resp BP BP Pulse Ox 07/11/17 07:00 99 F 91 18 109/69 94 L 07/11/17 04:58 98.6 F 97 18 137/76 93 L 07/11/17 04:27 99.2 F 96 18 130/64 94 L 07/11/17 03:25 102 H 18 145/60 97 07/11/17 02:04 100.2 F H 132 H 20 140/89 97 Intake and Output 07/10/17 07/11/17 07/11/17 22:59 06:59 14:59 Intake Total 240 Balance 240 Intake: Oral 240 Other: Voiding Method Toilet Toilet # Voids 1 Weight 80.5 kg PHYSICAL EXAMINATION: GENERAL: The patient is alert and oriented x3, not in any acute distress. Well developed, well nourished. HEENT: Pupils are round and equally reacting to light. EOMI. No scleral icterus. No conjunctival pallor. Normocephalic, atraumatic. No pharyngeal erythema. No thyromegaly. CARDIOVASCULAR: S1 and S2 present. No murmurs, rubs, or gallops. PULMONARY: Chest is clear to auscultation, no wheezing or crackles. ABDOMEN: Soft, nontender, nondistended, normoactive bowel sounds. No palpable organomegaly. MUSCULOSKELETAL: No joint swelling or deformity. EXTREMITIES: No cyanosis, clubbing, or pedal edema. NEUROLOGICAL: Gross neurological examination did not reveal any focal deficits. SKIN: No rashes. Results CBC & Chem 7: 07/11/17 02:42 07/11/17 02:42 Labs: Abnormal Lab Results - Last 24 Hours (Table) 07/11/17 07/11/17 07/11/17 Range/Units 02:31 02:42 02:42 WBC 11.1 H (3.8-10.6) k/uL Neutrophils # 10.0 H (1.3-7.7) k/uL Lymphocytes # 0.4 L (1.0-4.8) k/uL BUN 20 H (7-17) mg/dL Glucose 143 H (74-99) mg/dL Plasma Lactic Acid Damon (0.7-2.0) mmol/L Urine Blood Large H (Negative) Ur Leukocyte Esterase Small H (Negative) Urine RBC >182 H (0-5) /hpf Urine WBC 12 H (0-5) /hpf Urine Bacteria Rare H (None) /hpf Urine Mucus Rare H (None) /hpf 07/11/17 Range/Units 02:42 WBC (3.8-10.6) k/uL Neutrophils # (1.3-7.7) k/uL Lymphocytes # (1.0-4.8) k/uL BUN (7-17) mg/dL Glucose (74-99) mg/dL Plasma Lactic Acid Damon 3.0 H* (0.7-2.0) mmol/L Urine Blood (Negative) Ur Leukocyte Esterase (Negative) Urine RBC (0-5) /hpf Urine WBC (0-5) /hpf Urine Bacteria (None) /hpf Urine Mucus (None) /hpf Microbiology - Last 24 Hours (Table) 07/11/17 02:31 Urine Culture - Preliminary Urine,Voided Thrombosis Risk Factor Assmnt - Choose All That Apply Any of the Below Risk Factors Present?: Yes Each Factor Represents 1 point: Age 41-60 years, Obesity (BMI >25) Other Risk Factors: No Other congenital or acquired thrombophilia - If yes, enter type in comment: No Thrombosis Risk Factor Assessment Total Risk Factor Score: 2 Thrombosis Risk Factor Assessment Level: Low Risk Assessment and Plan Plan: -Sepsis: Secondary to urinary tract infection management as mentioned above. -Hypertension: Blood pressures are on the low normal side because of sepsis I believe patient can continue her losartan has supposed sepsis improved. -Obesity: Counseling was provided -Transient vaginal bleed secondary to the sexual intercourse which resolved at this point of time -Hypothyroidism
--- NOTE | 2017-07-11 11:54 | P.DS ---
Providers Date of admission: 07/11/17 04:25 Attending physician: Grace Chin Primary care physician: Carmelita Chadwick [facility] Course: Please refer to HPI Patient Condition at Discharge: Stable Plan - Discharge Summary New Discharge Prescriptions: New Ciprofloxacin HCl [Cipro] 500 mg PO BID 3 Days #10 tab No Action Aspirin 81 mg PO DAILY Citalopram Hydrobromide [CeleXA] 20 mg PO DAILY Losartan Potassium [Losartan Potassium] 100 mg PO DAILY Calcium Carbonate/Vitamin D3 [Calcium 500-Vit D3 200 Tablet] 1 tab PO DAILY Discharge Medication List Aspirin 81 mg PO DAILY 06/18/14 [History] Citalopram Hydrobromide [CeleXA] 20 mg PO DAILY 06/21/16 [History] Calcium Carbonate/Vitamin D3 [Calcium 500-Vit D3 200 Tablet] 1 tab PO DAILY [History] Ciprofloxacin HCl [Cipro] 500 mg PO BID 3 Days #10 tab 07/11/17 [Rx] Losartan Potassium [Losartan Potassium] 100 mg PO DAILY 07/11/17 [History] Follow up Appointment(s)/Referral(s): Carmelita Chadwick MD [Primary Care Provider] - 3 Days Discharge Disposition: HOME SELF-CARE
[2017-07-11] MEDS ORDERED: cefTRIAXone IN SWFI 1,000 MG/10 ML SYRINGE IVP SCH (21:00)
== END 2017-07-11 12:40 | disposition home or self-care (01) ==
LOC: EC 01:53 → 5MS5E 04:25
PROVIDERS: ADMIT Hospitalist; ATTEND Hospitalist
DX: A41.9 Sepsis, unspecified organism (principal); R65.20 Severe sepsis without septic shock; N39.0 Urinary tract infection, site not specified; I10 Essential (primary) hypertension; N93.0 Postcoital and contact bleeding; E66.9 Obesity, unspecified; Z68.30 Body mass index [BMI] 30.0-30.9, adult; E03.9 Hypothyroidism, unspecified; F41.9 Anxiety disorder, unspecified; F32.9 Major depressive disorder, single episode, unspecified; R20.2 Paresthesia of skin; R20.0 Anesthesia of skin; M54.9 Dorsalgia, unspecified; M81.0 Age-related osteoporosis without current pathological fracture; F17.200 Nicotine dependence, unspecified, uncomplicated; Z98.1 Arthrodesis status; Z79.82 Long term (current) use of aspirin; Z79.899 Other long term (current) drug therapy
CPT/HCPCS: 99284; 96374 ×2; 96361 ×3; 36415; 80053; 83605; 85025; 81001; 87040; 87086; 87077; 87186; 87502; 71046; G0378; J0696

== ENCOUNTER → 2017-07-22 | Outpatient (CLI) | payer OTHER ==
--- NOTE | 2017-07-22 11:01 | NM ---
EXAMINATION TYPE: NM stress cardiolite complete DATE OF EXAM: 07/22/2017 COMPARISON: NONE HISTORY: Chest pain short of breath TECHNIQUE: After the intravenous administration of 10.9 mCi Tc 99m Sestamibi - Rest images obtained 45 minutes post injection. The patient exercised using a CASI protocol and 1 minute prior to peak exercise was injected with 30 mCi Tc 99m Sestamibi - Stress images obtained 10 minutes post injection . FINDINGS: Targeted heart rate was achieved during performance of the study. No fixed or reversible perfusion de fects are evident on SPECT imaging. Gated analysis shows normal wall motion with an estimated left ve ntricular ejection fraction of 68 %. IMPRESSION: 1. Reversible perfusion defects.
--- NOTE | 2017-07-22 11:28 | EST ---
EXERCISE STRESS AGE: 61 SEX: F HT: 5'4" WT: 175 PROTOCOL: Cardiolite Rikki Stress Test STAGE: II DURATION OF EXERCISE: 6:15 HEART RATE REST: 75 BLOOD PRESSURE REST: 124/78 MAXIMUM HEART RATE ACHIEVED: 144 MAXIMUM BLOOD PRESSURE: 168/104 85% MPHR: 137 100% MPHR: 161. METS: 7.5 INDICATIONS: Chest pain. CLINICAL INFORMATION: STRESS DATA: Pretesting physical examination showed heart rate of 75, pressure is 124/78 mmHg. Baseline EKG showed sinus rhythm. The patient exercised on the treadmill according to Rikki protocol for a total of 6 minutes and 15 seconds and achieved 7.5 METS. Max heart rate was 144, which is about 89% of maximum predicted heart rate. Maximum blood pressure was 168/104 mmHg. Clinically, the patient did not have any symptoms of chest pain or discomfort. The EKG did not show any significant ST or T- wave abnormalities consistent with ischemia. CONCLUSION: 1. Average exercise capacity. 2. Normal EKG in response to exercise. 3. Please follow up on the Cardiolite portion on separate report from the Radiology Department. MMODL / IJN: [id number] /
== END | disposition home or self-care (01) ==
LOC: RADNMMAIN 08:22
PROVIDERS: ATTEND Family Medicine
DX: R07.9 Chest pain, unspecified (principal); I10 Essential (primary) hypertension; R06.02 Shortness of breath
CPT/HCPCS: 93017; 78452; A9500

== ENCOUNTER → 2017-10-08 | Outpatient (CLI) | payer OTHER ==
--- NOTE | 2017-10-08 14:57 | CTL ---
EXAMINATION TYPE: CT Low Dose Lung DATE OF EXAM ORDERED: 10/08/2017 HISTORY: Personal tobacco abuse. Lung cancer screening CT DLP: [address] CTDI: 2.02 mGy Automated exposure control for dose reduction was used. SCREENING VISIT: Initial COMPARISON: None TECHNIQUE: Low dose computed tomography scan was performed through the chest at 1 mm thick sections a nd reconstructed images in the coronal plane at [address] DIAGNOSTIC QUALITY: Limited, but interpretable FINDINGS: LUNG NODULES: There are no suspicious nodules. A calcified punctate granulomas seen within the superi or segment of the right lower lobe on series 5 image 131 and additional left apical calcified granulo ma on series 5 image 21. LUNGS: COPD: Severity: Minimal centrilobular at the lung apices Fibrosis: Severity: None Lymph nodes: No pathologically enlarged mediastinal adenopathy. No axillary adenopathy. RIGHT PLEURAL SPACE: Effusion: None Calcification: None Thickening: None Pneumothorax: None LEFT PLEURAL SPACE: Effusion: None Calcification: None Thickening: None Pneumothorax: None HEART: Heart Size: Nonenlarged Coronary calcification: None Pericardial effusion: None OTHER FINDINGS: Upper abdomen: Unenhanced abdominal viscera are grossly unremarkable in their limited visualized port ions. Bony thorax: No suspicious osseous lesions. Supraclavicular region: No adenopathy. Other: Ascending thoracic aorta is within normal limits measuring 3.6 cm as is the main pulmonary art sobia. IMPRESSION: Lung RADS 1-Negative examination-No suspicious pulmonary nodules. Minimal centrilobular e mphysematous changes at the lung apices. FOLLOW UP CT CHEST RECOMMENDATION: Continued annual screening with low dose CT is recommended in [address] [facility] LUNG RAD: Lung-Rad 1 Negative
--- NOTE | 2017-10-10 08:23 | MM ---
Reason for exam: screening (asymptomatic). Last mammogram was performed 1 year and 5 months ago. History: Patient is postmenopausal. Family history of breast cancer in paternal aunt. Excisional biopsy of the left breast. Physical Findings: A clinical breast exam by your physician is recommended on an annual basis and results should be correlated with mammographic findings. MG 3D Screening Mammo W/Cad Bilateral CC and MLO view(s) were taken. Prior study comparison: April 25, 2016, bilateral MG 3d screening mammo w/cad. July 27, 2014, bilateral MG diagnostic mammo w CAD [facility]IL[facility]. The breast tissue is heterogeneously dense. This may lower the sensitivity of mammography. No significant changes when compared with prior studies. ASSESSMENT: Benign, BI-RAD 2 RECOMMENDATION: Routine screening mammogram of both breasts in 1 year.
== END | disposition home or self-care (01) ==
LOC: RADMAMWWP 13:09
PROVIDERS: ATTEND Family Medicine
DX: Z12.31 Encounter for screening mammogram for malignant neoplasm of breast (principal); J43.9 Emphysema, unspecified; Z87.891 Personal history of nicotine dependence; Z12.2 Encounter for screening for malignant neoplasm of respiratory organs
CPT/HCPCS: 77067; 77063; G0297

== ENCOUNTER 2017-10-09 12:39 | Emergency (ER) | payer OTHER ==
[2017-10-09 12:56] VITALS: TEMP 98.3
[2017-10-09] MEDS ORDERED: LOSARTAN 50 MG TAB PO STA (13:32)
[2017-10-09 13:34] LABS: Amphetamine Screen,Urine Not Detected (NotDetected); Benzodiazepines Screen,Urine Not Detected (NotDetected); Cocaine Screen,Urine Not Detected (NotDetected); Opiate Screen,Urine Not Detected (NotDetected); Phencyclidine Screen,Urine Not Detected (NotDetected); Tricyclic Antidepressant,Urine Not Detected (NotDetected); Urn Cannabinoid Scrn Not Detected (NotDetected)
[2017-10-09 13:35] LABS: Barbiturate Screen,Urine Not Detected (NotDetected); Methadone Screen, Urine Not Detected (NotDetected); Oxycodone Screen, Urine Not Detected (NotDetected)
[2017-10-09] MEDS ORDERED: ONDANSETRON ODT 4 MG TAB PO STA (15:00)
[2017-10-09 15:06] VITALS: RESP 18
--- NOTE | 2017-10-09 15:23 | ED ---
Psych HPI - General Chief Complaint: Psychiatric Symptoms Stated Complaint: mental health Time Seen by Provider: 10/09/17 13:02 Source: patient Mode of arrival: ambulatory - History of Present Illness Initial Comments: Patient presents with depression. She relayed her intent to harm herself. She denies any fever, chills, chest pain. She denies actually harming herself today were tending to harm herself. She has not overdosed on anything. She denies alcohol or drug abuse. - Related Data Home Medications Medication Instructions Recorded Confirmed Aspirin 81 mg PO DAILY 06/18/14 10/09/17 Citalopram Hydrobromide [CeleXA] 20 mg PO DAILY 06/21/16 10/09/17 Losartan Potassium [Losartan 100 mg PO DAILY 07/11/17 10/09/17 Potassium] Dm/Acetaminophen/Doxylamine [Vicks 10 ml PO Q6H PRN 10/09/17 10/09/17 Nyquil Cold & Flu Liquid] Guaifen/Phenyleph/Acetaminophn 10 ml PO Q6H PRN 10/09/17 10/09/17 [Mucinex Sinus-Max Severe Liq] Hydrochlorothiazide 12.5 mg PO DAILY 10/09/17 10/09/17 Allergies Allergy/AdvReac Type Severity Reaction Status Date / Time No Known Allergies Allergy Verified 10/09/17 14:13 Review of Systems ROS Statement: Those systems with pertinent positive or pertinent negative responses have been documented in the HPI. ROS Other: All systems not noted in ROS Statement are negative. Past Medical History Past Medical History: Hypertension, Thyroid Disorder Additional Past Medical History / Comment(s): cataracts, back pain, osteoporosis detiorating hip bones bilaterally from osteoporosis, has burning numbness and tingling from hips to feet bilaterally. History of Any Multi-Drug Resistant Organisms: None Reported Past Surgical History: Adenoidectomy, Section, Hysterectomy, Joint Replacement, Tonsillectomy Additional Past Surgical History / Comment(s): disc fusions in the neck and back. bunionectomy, eye surgery, right shoulder surgery Past Anesthesia/Blood Transfusion Reactions: No Reported Reaction Past Psychological History: Anxiety, Depression Smoking Status: Current every day smoker Past Alcohol Use History: None Reported Past Drug Use History: None Reported - Past Family History Father Family Medical History: Hypertension General Exam Limitations: no limitations General appearance: alert, in no apparent distress Head exam: Present: atraumatic, normocephalic, normal inspection Eye exam: Present: normal appearance, PERRL, EOMI. Absent: scleral icterus, conjunctival injection, periorbital swelling ENT exam: Present: normal exam, mucous membranes moist Neck exam: Present: normal inspection. Absent: tenderness, meningismus, lymphadenopathy Respiratory exam: Present: normal lung sounds bilaterally. Absent: respiratory distress, wheezes, rales, rhonchi, stridor Cardiovascular Exam: Present: regular rate, normal rhythm, normal heart sounds. Absent: systolic murmur, diastolic murmur, rubs, gallop, clicks GI/Abdominal exam: Present: soft, normal bowel sounds. Absent: distended, tenderness, guarding, rebound, rigid Extremities exam: Present: normal inspection, full ROM, normal capillary refill. Absent: tenderness, pedal edema, joint swelling, calf tenderness Back exam: Present: normal inspection Neurological exam: Present: alert, oriented X3, CN II-XII intact Psychiatric exam: Present: normal affect, normal mood Skin exam: Present: warm, dry, intact, normal color. Absent: rash Course Vital Signs 10/09/17 10/09/17 12:54 15:00 Temperature 98.3 F Pulse Rate 90 93 Respiratory 20 18 Rate Blood Pressure 197/91 183/97 O2 Sat by Pulse 99 94 L Oximetry Medical Decision Making - Medical Decision Making Patient presents with psychiatric disorder. She is petitioned. Psychiatry eval and the patient. They do not feel she is a danger to herself or others. She will be released in the care of family. - Lab Data Lab Results 10/09/17 Range/Units 13:10 Urine Opiates Screen Not Detected (NotDetected) Ur Oxycodone Screen Not Detected (NotDetected) Urine Methadone Screen Not Detected (NotDetected) Ur Propoxyphene Screen Not Detected (NotDetected) Ur Barbiturates Screen Not Detected (NotDetected) U Tricyclic Antidepress Not Detected (NotDetected) Ur Phencyclidine Scrn Not Detected (NotDetected) Ur Amphetamines Screen Not Detected (NotDetected) U Methamphetamines Scrn Not Detected (NotDetected) U Benzodiazepines Scrn Not Detected (NotDetected) Urine Cocaine Screen Not Detected (NotDetected) U Marijuana (THC) Screen Not Detected (NotDetected) Disposition Clinical Impression: Depression Disposition: HOME SELF-CARE Condition: Good Instructions: Depression (ED) Is patient prescribed a controlled substance at discharge?: No Referrals: Carmelita Chadwick MD [Primary Care Provider] - 1-2 days Time of Disposition: 15:23
[2017-10-09 15:41] VITALS: BP 146/85; PULSE 76
== END 2017-10-09 15:56 | disposition home or self-care (01) ==
LOC: EC 12:39
DX: F32.9 Major depressive disorder, single episode, unspecified (principal); I10 Essential (primary) hypertension; F17.200 Nicotine dependence, unspecified, uncomplicated; Z79.82 Long term (current) use of aspirin; Z79.899 Other long term (current) drug therapy
CPT/HCPCS: 80306; 82075; 99285

== ENCOUNTER → 2017-11-19 | Outpatient (CLI) | payer OTHER ==
--- NOTE | 2017-11-19 10:28 | US ---
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 0.6 X 0.4 x 0.6 cm hypoechoic solid nodule at the lower pole with well-defined margins; . This nodule is wider than tall and shows no intranodular vascularity. Prior size: 0.4 x 0.3 x 0.5 cm LEFT: # of nodules measured on left: 4 1. 2.4 X 1.4 x 1.4 cm hypoechoic solid nodule at the pole with well-defined margins; . This nodule is wider than tall and shows intranodular vascularity. Prior size: 2.2 x 1.4 x 1.5 cm 2. 0.8 X 0.7 x 0.8 cm hypoechoic solid nodule at the mid pole with well-defined margins; . This nod ule is wider than tall and shows intranodular vascularity. Prior size: 0.7 x 0.6 x 0.7 cm 3. 0.8 X 0.6 x 0.6 cm isoechoic solid nodule at the mid pole with well-defined margins; . This nodu le is wider than tall and shows intranodular vascularity. Prior size: 0.9 x 0.7 x 0.9 cm 4. 1.4 X 1.1 x 1.2 cm hypoechoic solid nodule at the lower pole with well-defined margins; . This n odule is wider than tall and shows intranodular vascularity. Prior size: 1.3 x 0.9 x 1.0 cm ISTHMUS: # of nodules measured in the isthmus: 0 Bilateral neck scanned, no evidence of lymphadenopathy. Scanned right lateral neck where patient gets swelling off and on, no definite abnormality noted. The re was an additional cystic nodule left lobe on prior exam not seen on today's exam. IMPRESSION: 1. Stable nonspecific thyroid nodularity. Immediate biopsy should be made on a clinical basis.
--- NOTE | 2017-11-19 10:49 | US ---
EXAMINATION TYPE: US gallbladder DATE OF EXAM: 11/19/2017 COMPARISON: NONE CLINICAL HISTORY: R10.10 Upper Abd Pain. EXAM MEASUREMENTS: Liver Length: 13.1 cm Gallbladder Wall: 0.1 cm CBD: 0.4 cm Right Kidney: 10.0 x 4.0 x 4.6 cm Pancreas: visualized portions wnl Liver: wnl Gallbladder: large mobile stone with shadowing, ring down shadowing multiple areas gallbladder wall. Evidence for sonographic John's sign: Yes CBD: wnl Right Kidney: No hydronephrosis or masses seen IMPRESSION: 1. Cholelithiasis without gallbladder wall thickening or pericholecystic fluid.
== END | disposition home or self-care (01) ==
LOC: RADUSWWP 09:24
PROVIDERS: ATTEND Family Medicine
DX: K80.20 Calculus of gallbladder without cholecystitis without obstruction (principal); E07.89 Other specified disorders of thyroid; R22.1 Localized swelling, mass and lump, neck
CPT/HCPCS: 76536; 76705

== ENCOUNTER → 2018-01-03 | Outpatient (CLI) | payer OTHER ==
[2018-01-03 11:05] LABS: Basophils # (A) 0.1 k/uL (0-0.2); Basophils % (A) 1 %; Eosinophils # (A) 0.2 k/uL (0-0.7); Eosinophils % (A) 4 %; HCT 45.7 % (34.0-46.0); Lymphocytes # (A) 0.8 k/uL (1.0-4.8); Lymphocytes % (A) 15 %; MCH 29.3 pg (25.0-35.0); MCHC 32.9 g/dL (31.0-37.0); MCV 89.2 fL (80.0-100.0); Mean Platelet Volume 7.4; Monocytes # (A) 0.3 k/uL (0-1.0); Monocytes % (A) 6 %; Neutrophils # (A) 3.8 k/uL (1.3-7.7); Neutrophils % (A) 72 %; Platelet Count 188 k/uL (150-450); RBC 5.12 m/uL (3.80-5.40); RDW 13.6 % (11.5-15.5); WBC 5.2 k/uL (3.8-10.6)
[2018-01-03 11:47] LABS: ALT 30 U/L (9-52); AST 20 U/L (14-36); Albumin 4.4 g/dL (3.5-5.0); Alkaline Phosphatase 64 U/L (38-126); Anion Gap 9 mmol/L; Blood Urea Nitrogen 17 mg/dL (7-17); Calcium 9.7 mg/dL (8.4-10.2); Carbon Dioxide 23 mmol/L (22-30); Chloride 109 mmol/L (98-107); Glucose 124 mg/dL (74-99); Potassium 3.6 mmol/L (3.5-5.1); Sodium 141 mmol/L (137-145); Total Bilirubin 0.9 mg/dL (0.2-1.3); Total Protein 6.6 g/dL (6.3-8.2)
== END | disposition home or self-care (01) ==
LOC: LABWHC1 10:40
PROVIDERS: ATTEND Surgery
DX: K80.00 Calculus of gallbladder with acute cholecystitis without obstruction (principal)
CPT/HCPCS: 36415; 80053; 85025

== ENCOUNTER 2018-01-07 15:51 | Emergency (ER) | payer OTHER ==
--- NOTE | 2018-01-07 17:04 | XR ---
EXAMINATION TYPE: XR chest 2V DATE OF EXAM: 01/07/2018 COMPARISON: 07/11/2017 HISTORY: Cough for one month TECHNIQUE: Frontal and lateral views of the chest are obtained. FINDINGS: There is no heart failure nor confluent pneumonic infiltrate. Costophrenic angles are ivette r. There is cervical spine fusion surgery. Diaphragm is normal. Heart size is normal. IMPRESSION: Normal chest. No change.
[2018-01-07] MEDS ORDERED: IPRATROPIUM-ALBUTEROL 3 ML NEB INHALATION STA (18:10)
--- NOTE | 2018-01-07 18:27 | ED ---
General Adult HPI - General Chief complaint: Upper Respiratory Infection Stated complaint: cough Time Seen by Provider: 01/07/18 17:28 Source: patient, RN notes reviewed Mode of arrival: ambulatory Limitations: no limitations - History of Present Illness Initial comments: 62-year-old female presents to the emergency department for a chief complaint of cough times one month. Patient is a smoker currently. Patient states she is coughing up sputum. Patient denies any shortness of breath or chest pain. Patient states she feels silly more tired than normal simply because she is coughing so much. Patient states she is having trouble sleeping at night due to the cough. Patient denies any fevers or chills at home. Patient denies any known history of COPD. No history of PE or DVT. Patient states she saw her primary care provider last week he said she "sounded fine."Patient has no other complaints at this time including shortness of breath, chest pain, abdominal pain, nausea or vomiting, headache, or visual changes. - Related Data Home Medications Medication Instructions Recorded Confirmed Aspirin 81 mg PO DAILY 06/18/14 01/07/18 Citalopram Hydrobromide [CeleXA] 20 mg PO DAILY 06/21/16 01/07/18 Losartan Potassium 100 mg PO DAILY 07/11/17 01/07/18 Hydrochlorothiazide 12.5 mg PO DAILY 10/09/17 01/07/18 Fluticasone Nasal [place] [Flonase 1 spray EA NOSTRIL DAILY 01/07/18 01/07/18 Nasal [place]] guaiFENesin [Mucinex] 600 mg PO BID PRN 01/07/18 01/07/18 Previous Rx's Medication Instructions Recorded Albuterol Inhaler [Ventolin Hfa 1 - 2 puff INHALATION Q6HR PRN #1 01/07/18 Inhaler] inhaler Azithromycin [Zithromax Z-pack] 250 mg PO DIRECTED #6 tab 01/07/18 predniSONE 50 mg PO DAILY #5 tablet 01/07/18 Allergies Allergy/AdvReac Type Severity Reaction Status Date / Time No Known Allergies Allergy Verified 01/07/18 17:21 Review of Systems ROS Statement: Those systems with pertinent positive or pertinent negative responses have been documented in the HPI. ROS Other: All systems not noted in ROS Statement are negative. Past Medical History Past Medical History: Hypertension, Thyroid Disorder Additional Past Medical History / Comment(s): cataracts, back pain, osteoporosis detiorating hip bones bilaterally from osteoporosis, has burning numbness and tingling from hips to feet bilaterally. History of Any Multi-Drug Resistant Organisms: None Reported Past Surgical History: Adenoidectomy, Section, Hysterectomy, Joint Replacement, Tonsillectomy Additional Past Surgical History / Comment(s): disc fusions in the neck and back. bunionectomy, eye surgery, right shoulder surgery Past Anesthesia/Blood Transfusion Reactions: No Reported Reaction Past Psychological History: Anxiety, Depression Smoking Status: Current every day smoker Past Alcohol Use History: None Reported Past Drug Use History: None Reported - Past Family History Father Family Medical History: Hypertension General Exam Limitations: no limitations General appearance: alert, in no apparent distress Head exam: Present: atraumatic, normocephalic, normal inspection Eye exam: Present: normal appearance ENT exam: Present: normal oropharynx, mucous membranes moist, TM's normal bilaterally, normal external ear exam, other (bilateral nasal sinus congestion) Neck exam: Present: normal inspection, full ROM. Absent: tenderness, meningismus, lymphadenopathy Respiratory exam: Present: normal lung sounds bilaterally. Absent: respiratory distress, wheezes, rales, rhonchi, stridor, chest wall tenderness, accessory muscle use, decreased breath sounds, prolonged expiratory Cardiovascular Exam: Present: regular rate, normal rhythm, normal heart sounds. Absent: systolic murmur, diastolic murmur, rubs, gallop, clicks Course Vital Signs 01/07/18 16:42 Pulse Rate 75 Respiratory 18 Rate Blood Pressure 169/90 O2 Sat by Pulse 98 Oximetry Medical Decision Making - Medical Decision Making 62-year-old female presents to the emergency department for a chief of cough times one month. Patient is coughing up sputum. No shortness of breath or chest pain. No history of blood clots. Patient is congested as well. Patient is a smoker. Patient saw primary care last week is that she was fine. Vitals are stable. 98% on room air. Afebrile. Blood pressure is slightly elevated in the emergency department which patient will follow up outpatient for. Lungs are clear to auscultation bilaterally. No wheezing. Patient was given a breathing treatment which helped with her symptoms. Chest x-ray shows no heart failure nor confluent pneumonic infiltrate. Diaphragm is normal. Normal chest. Patient will be given a Z-Tony as well as albuterol inhaler. Patient will be given a prescription for prednisone but should discuss with surgeon if she should take this as she has a surgery for GB removal scheduled for next week. Patient aware she can return to the emergency Department if she has any worsening symptoms, fevers, shortness of breath. Disposition Clinical Impression: Upper respiratory infection Disposition: HOME SELF-CARE Condition: Good Instructions: Upper Respiratory Infection (ED) Additional Instructions: Please take antibiotic as directed. Please use albuterol inhaler as directed. Please discuss with surgeon if you should take prednisone before you start it. Continue to take [id number] medicines as directed by your primary care provider. Return to the emergency department if you have any worsening symptoms including fever or shortness of breath. Prescriptions: Albuterol Inhaler [Ventolin Hfa Inhaler] 1 - 2 puff INHALATION Q6HR PRN #1 inhaler PRN Reason: Shortness Of Breath Azithromycin [Zithromax Z-pack] 250 mg PO DIRECTED #6 tab predniSONE 50 mg PO DAILY #5 tablet Is patient prescribed a controlled substance at d/c from ED?: No Referrals: Carmelita Chadwick MD [Primary Care Provider] - 1-2 days Time of Disposition: 18:42
[2018-01-07 19:10] VITALS: BP 164/91; PULSE 71; RESP 14; TEMP 98
== END 2018-01-07 19:10 | disposition home or self-care (01) ==
LOC: EC 15:51
DX: J06.9 Acute upper respiratory infection, unspecified (principal); I10 Essential (primary) hypertension; F32.9 Major depressive disorder, single episode, unspecified; F41.9 Anxiety disorder, unspecified; F17.200 Nicotine dependence, unspecified, uncomplicated; Z79.51 Long term (current) use of inhaled steroids; Z79.82 Long term (current) use of aspirin; Z79.899 Other long term (current) drug therapy
CPT/HCPCS: 71046; 94640; 99283

== ENCOUNTER → 2018-01-08 | Outpatient (CLI) | payer OTHER ==
--- NOTE | 2018-01-08 11:53 | USB ---
Reason for exam: clinical finding. History: Patient is postmenopausal. Family history of breast cancer in paternal aunt. Excisional biopsy of the left breast. Physical Findings: Nurse Summary: Patient complains of intermittent right breast pain x 1 month with spontaneous bloody nipple discharge (nurse mj). US Breast RT Right complete breast ultrasound includes all four quadrants, the retroareolar region and axilla. Finding demonstrates a 1.8 x 0.8 x 0.7cm duct ectasia with debris and vascular, biopsy is recommended. These results were verbally communicated with the patient and result sheet given to the patient on 01/08/18. ASSESSMENT: Suspicious, BI-RAD 4 RECOMMENDATION: Ultrasound core biopsy of the right breast. Called Dr. Carmelita Chadwick with mammographic findings and has scheduled an appointment for the patient for 01/23/18 at 10:[address] Chadwick. Biopsy scheduled for 01/13/18 at 1:00. PRELIMINARY REPORT CALLED AND FAXED TO DR. CHADWICK ON 01/08/18.
== END | disposition home or self-care (01) ==
LOC: RADUSWWP 09:43
PROVIDERS: ATTEND Family Medicine
DX: N64.4 Mastodynia (principal); N64.52 Nipple discharge

== ENCOUNTER → 2018-01-13 | Day surgery (SDC) | payer OTHER ==
[2018-01-13 12:50] VITALS: BP 127/82; PULSE 91; RESP 18; TEMP 99; BMI 27.8
--- NOTE | 2018-01-13 16:09 | USB ---
EXAMINATION TYPE: US discontinued breast bx RT DATE OF EXAM: 01/13/2018 COMPARISON: 01/08/2018 HISTORY: 62-year-old female referred for ultrasound-guided biopsy after bloody nipple discharge. TECHNIQUE and FINDINGS: The patient was placed supine for imaging and for the procedure. Initial scanning redemonstrated ecta tic ducts at the right 9:00 position. The previously seen filling defect within these dilated ducts h as cleared in the interval. No persistent filling defect is identified that would serve as an adequat e target for biopsy. Three-month follow-up ultrasound recommended to reassess these ducts. IMPRESSION: BI-RADS 3 - probably benign; 9:00 periareolar ductal ectasia right breast with interval clearance of the previously seen filling defect. RECOMMENDATION: 1. Three-month follow-up right breast ultrasound to reassess the ducts. 2. Clinical management for right breast pain. 3. Patient should continue monitoring for any nipple discharge. Suspicious discharge that would warra nt further evaluation includes spontaneous clear or bloody discharge localized to a single pore on th e nipple. If symptoms recur, ultrasound can be performed sooner.
== END | disposition home or self-care (01) ==
LOC: RADUSWWP 12:32
PROVIDERS: ATTEND Surgery
DX: N64.52 Nipple discharge (principal); N60.41 Mammary duct ectasia of right breast

== ENCOUNTER 2018-01-15 08:37 | Day surgery (SDC) | payer OTHER ==
[2018-01-09 14:21] VITALS: BMI 27.8
[~2018-01-15 08:37] MED LIST: HEPARIN SODIUM,PORCINE 5,000 UNIT/ML 1 ML VIAL SQ ONE; LACTATED RINGERS 1,000 ML IV SCH; ceFAZolin IN SWFI 2 GM/20 ML SYRINGE IVP ONE; fentaNYL (PF) 50 MCG/ML 2 ML AMP IV PRN
[2018-01-15] MEDS ORDERED: ONDANSETRON 4 MG/2 ML VIAL IVP ONE (09:52)
[2018-01-15] MEDS ORDERED: SCOPOLAMINE 1.5MG/72HR PATCH TRANSDERM ONE (09:53)
[2018-01-15] MEDS ORDERED: DEXAMETHASONE SOD PHOSPHATE 10 MG/ML 1 ML VIAL IV ONE (09:53)
[2018-01-15 09:57] LABS: Glucose,Whole Blood 96 mg/dL (75-99)
[2018-01-15] MEDS ORDERED: HYDROmorphone (PF) 1 MG/ML ONE (10:54)
[2018-01-15] MEDS ORDERED: MIDAZOLAM 2 MG/2 ML VIAL ONE (10:54)
[2018-01-15] MEDS ORDERED: ePHEDrine SULFATE/0.9% NACL/PF 50 MG/5 ML SYRINGE IV ONE (10:54)
[2018-01-15] MEDS ORDERED: ROCURONIUM BROMIDE 10 MG/ML 10 ML VIAL IV ONE (10:54)
[2018-01-15] MEDS ORDERED: GLYCOPYRROLATE 0.2 MG/ML 2 ML VIAL ONE (10:54)
[2018-01-15] MEDS ORDERED: fentaNYL (PF) 50 MCG/ML 2 ML AMP ONE (10:54)
[2018-01-15] MEDS ORDERED: NEOSTIGMINE 1 MG/ML 10 ML VIAL ONE (10:54)
[2018-01-15] MEDS ORDERED: SUCCINYLCHOLINE CHLORIDE 100 MG/5 ML SYR IV ONE (10:54)
[2018-01-15] MEDS ORDERED: PROPOFOL 10 MG/ML 20 ML VIAL IV ONE (10:54)
[2018-01-15] MEDS ORDERED: BUPIVACAIN-EPI 0.5%-1:200,000 30 ML VIAL SQ ONE ×2 (11:11)
[2018-01-15] MEDS ORDERED: LACTATED RINGERS 1,000 ML IV ONE (11:20)
--- NOTE | 2018-01-15 11:42 | P.OP ---
Date of Procedure: 01/15/18 Procedure(s) Performed: PREOPERATIVE DIAGNOSIS: Chronic cholecystitis POSTOPERATIVE DIAGNOSIS: Same PROCEDURE: Laparoscopic cholecystectomy SURGEON: Netta EBL: Minimal see anesthesia record ANESTHESIA: Gen. COMPLICATIONS: None OPERATIVE PROCEDURE: The patient was brought and placed on the operating room table in the supine position. The patient was placed under general anesthesia at that time. The abdomen was prepped and draped in the usual sterile fashion. A small horizontal trans-umbilical incision was made. The fascia was grasped with the Miquel forceps. The fascia was retracted anteriorly. The Veress needle was advanced into the peritoneal cavity. The saline drop test was normal. Insufflation took place up to 15 mmHg. A 5 mm optical trocar was advanced and the peritoneal cavity. 2 additional 5 mm trochars were placed in the right upper quadrant under direct visualization. A 10 mm trocar was advanced into the epigastric incision site. The gallbladder was retracted superiorly and laterally. The peritoneum overlying the infundibulum was bluntly dissected. The patient's cystic duct was visualized. The junction between the cystic duct common and hepatic duct was identified. The cystic duct was then divided after placement of 3 10 mm clips on the patient's side and one on the specimen side. The cystic artery was identified and clipped as well. A small vessel was seen along the gallbladder fossa and clipped as well. The gallbladder was then removed from the liver bed using electrocautery. The gallbladder was then removed from the epigastric trocar site with an Endo Catch bag. The gallbladder fossa was irrigated with saline. There was no evidence of any bleeding or biliary drainage seen. The trochars were then removed. The fascia at the 10 millimeter site was closed using a Jovanny- Mino 0 Vicryl stitch. The skin at all 4 sites was closed using a 4-0 Monocryl stitch. At the end of this procedure the sponge and needle counts were correct. DISPOSITION: Stable to the recovery room
[2018-01-15 12:13] VITALS: TEMP 97.2
[2018-01-15 12:16] VITALS: RESP 16
[2018-01-15] MEDS: HYDROmorphone 0.5 MG/0.5 ML SYRINGE IVP PRN ×2 (12:28→12:43)
[2018-01-15] MEDS ORDERED: HYDROcodone/APAP 5-325MG 1 EACH TAB PO ONE (14:00)
[2018-01-15 14:20] VITALS: BP 102/64; PULSE 75
== END 2018-01-15 15:15 | disposition home or self-care (01) ==
LOC: OR 08:37
PROVIDERS: ATTEND Surgery
DX: K81.1 Chronic cholecystitis (principal); I10 Essential (primary) hypertension; E07.9 Disorder of thyroid, unspecified; M54.9 Dorsalgia, unspecified; M81.0 Age-related osteoporosis without current pathological fracture; R20.0 Anesthesia of skin; R20.2 Paresthesia of skin; H26.9 Unspecified cataract; F41.9 Anxiety disorder, unspecified; F32.9 Major depressive disorder, single episode, unspecified; F17.200 Nicotine dependence, unspecified, uncomplicated; Z79.82 Long term (current) use of aspirin; Z79.899 Other long term (current) drug therapy; Z90.710 Acquired absence of both cervix and uterus; Z98.1 Arthrodesis status
CPT/HCPCS: 47562; J2250; J1100; J2710; J2405; J3010; J1170 ×2; J0330; J2704; J0690; 88304

== ENCOUNTER → 2018-02-12 | Outpatient (CLI) | payer OTHER ==
--- NOTE | 2018-02-12 08:42 | CT ---
EXAMINATION TYPE: CT soft tissue neck w con DATE OF EXAM: 02/12/2018 COMPARISON: None HISTORY: Swollen/enlarged neck CT DLP: 550 mGycm CONTRAST: CT scan of the neck is performed with IV Contrast, patient injected with 100 mL of Isovue 300. Contrast enhanced CT of the neck was performed from the skull base through the lung apices. AIRWAY: The supraglottic, glottic, and subglottic portions of the airway appear patent and free of mass. SALIVARY GLANDS: The submandibular and parotid glands are free of mass or inflammatory process. THYROID GLAND: Hypoattenuating left thyroid nodule measures 1.4 cm. Smaller subcentimeter nodule lowe r pole. Right lobe is diminutive in size and free of solid or cystic nodule at this time. LYMPH NODES: No adenopathy seen greater than 1cm. LUNG APICES: No nodule or mass is seen. OTHER: Vascular structures are patent. Cervical fusion and plate fixation extending from C4 through C7. Alignment is anatomic. No abscess seen. IMPRESSION: 1. Left-sided thyroid nodularity. Correlate with ultrasound. 2. Changes of anterior cervical discectomy and fusion.
== END | disposition home or self-care (01) ==
LOC: RADCTMAIN 07:56
PROVIDERS: ATTEND Family Medicine
DX: E04.1 Nontoxic single thyroid nodule (principal); Z98.890 Other specified postprocedural states; Z98.1 Arthrodesis status
CPT/HCPCS: 70491; Q9967

== ENCOUNTER 2018-02-20 09:49 | Inpatient (IN) | payer OTHER ==
--- NOTE | 2018-02-20 10:13 | ED ---
General Adult HPI - General Chief complaint: Eye Problems Stated complaint: vision problems Source: patient Mode of arrival: ambulatory Limitations: no limitations - History of Present Illness Initial comments: Dictation was produced using [employer] dictation software. please excuse any grammatical, word or spelling errors. Chief Complaint: 62-year-old female presents after episode yesterday of right eye vision loss, right upper extremity weakness and dysarthria. History of Present Illness: She was donating plasma yesterday when she began experiencing these symptoms. Patient denies any history of strokes or TIAs she does report that she smokes has hypertension. Patient describes the weakness in her right upper extremity as heaviness to the right arm. She also had several minutes of dysarthria were she felt as though she was not able to clearly articulate. She does complain of visual loss to only the right eye. She describes the vision changes as blurriness with verduzco cervical spine in the middle. Denies any eye pain. The ROS documented in this emergency department record has been reviewed and confirmed by me. Those systems with pertinent positive or negative responses have been documented in the HPI. All other systems are other negative and/or noncontributory. - Related Data Home Medications Medication Instructions Recorded Confirmed Aspirin 81 mg PO DAILY 06/18/14 02/20/18 Citalopram Hydrobromide [CeleXA] 20 mg PO DAILY 06/21/16 02/20/18 Losartan Potassium 100 mg PO DAILY 07/11/17 02/20/18 Hydrochlorothiazide 12.5 mg PO DAILY 10/09/17 02/20/18 Fluticasone Nasal [place] [Flonase 1 spray EA NOSTRIL DAILY 01/07/18 02/20/18 Nasal [place]] Albuterol Inhaler [Ventolin Hfa 1 - 2 puff INHALATION RT-Q6H PRN 02/20/18 Inhaler] Alendronate Sodium [Fosamax] 70 mg PO SALMON 02/20/18 02/20/18 Allergies Allergy/AdvReac Type Severity Reaction Status Date / Time No Known Allergies Allergy Verified 02/20/18 09:56 Review of Systems ROS Statement: Those systems with pertinent positive or pertinent negative responses have been documented in the HPI. ROS Other: All systems not noted in ROS Statement are negative. Past Medical History Past Medical History: Hypertension, Thyroid Disorder Additional Past Medical History / Comment(s): cataracts, back pain, osteoporosis detiorating hip bones bilaterally from osteoporosis, has burning numbness and tingling from hips to feet bilaterally. History of Any Multi-Drug Resistant Organisms: None Reported Past Surgical History: Adenoidectomy, Section, Cholecystectomy, Hysterectomy, Joint Replacement, Tonsillectomy Additional Past Surgical History / Comment(s): disc fusions in the neck and back. bunionectomy, eye surgery, right shoulder surgery Past Anesthesia/Blood Transfusion Reactions: No Reported Reaction Past Psychological History: Anxiety, Depression Smoking Status: Current every day smoker Past Alcohol Use History: None Reported Past Drug Use History: None Reported - Past Family History Father Family Medical History: Hypertension General Exam - General Exam Comments Initial Comments: PHYSICAL EXAM: General Impression: Alert and oriented x3, not in acute distress HEENT: Normocephalic atraumatic, extra-ocular movements intact, pupils equal and reactive to light bilaterally, mucous membranes moist. Cardiovascular: Heart regular rate and rhythm, S1&S2 audible, no murmurs, rubs or gallops Chest: Lungs clear to auscultation bilaterally, no rhonchi, no wheeze, no rales Abdomen: Bowel sounds present, abdomen soft, non-tender, non-distended, no organomegaly Musculoskeletal: Pulses present and equal in all extremities, no peripheral edema Motor: Power 5/5 bilaterally, no focal deficits noted Neurological: CN II-XII grossly intact, 4+ weakness to the right upper extremity compared to the left Skin: Intact with no visualized rashes Psych: Normal affect and mood Limitations: no limitations Course Vital Signs 02/20/18 09:52 Temperature 98 F Pulse Rate 78 Respiratory 16 Rate Blood Pressure 141/95 O2 Sat by Pulse 97 Oximetry Medical Decision Making - Medical Decision Making ED course: 62-year-old female with past medical history of hypertension, current smoker presents with clinical presentation suspicious for cerebrovascular accident. She had this episode lasted yesterday for approximately 15 minutes. Patient came to the emergency department because she felt as though her symptoms were returning. Vital signs upon arrival are within acceptable limits. Patient states that her symptoms haven't completely resolved since yesterday. Patient states that her right upper extremity weakness has been persistent since approximate 6 PM yesterday. Given these findings patient's clinical presentation more consistent with ongoing CVA. She does not appear to be a candidate for TPA given that symptoms have been ongoing for more than 4 hours. Laboratory evaluation obtained. CBC unremarkable. Coag panel is negative. Metabolic panel shows no electrolyte derangements. There is mild hyperglycemia 152. Cardiac enzymes are negative. Computed tomography scan of the head shows no acute processes. Patient given an aspirin. She'll be admitted for cerebrovascular accident. Neurology on consult. EKG Interpretation: A 12 lead EKG was obtained. It was interpreted by myself and attending physician. There is a P wave before every QRS complex. Rate is 81. Rhythm is normal sinus rhythm, CA interval 1:30, QRS 72, QTc 439. QT is not prolonged. No ST segment depression or elevation. Overall, this EKG is unremarkable - Lab Data Result diagrams: 02/20/18 10:24 02/20/18 10:24 Lab Results 02/20/18 02/20/18 02/20/18 Range/Units 10:24 10:24 10:24 WBC 7.4 (3.8-10.6) k/uL RBC 5.37 (3.80-5.40) m/uL Hgb 15.9 (11.4-16.0) gm/dL Hct 50.1 H (34.0-46.0) % MCV 93.4 (80.0-100.0) fL MCH 29.6 (25.0-35.0) pg MCHC 31.7 (31.0-37.0) g/dL RDW 13.7 (11.5-15.5) % Plt Count 223 (150-450) k/uL Neutrophils % 76 % Lymphocytes % 14 % Monocytes % 5 % Eosinophils % 3 % Basophils % 1 % Neutrophils # 5.6 (1.3-7.7) k/uL Lymphocytes # 1.0 (1.0-4.8) k/uL Monocytes # 0.4 (0-1.0) k/uL Eosinophils # 0.2 (0-0.7) k/uL Basophils # 0.1 (0-0.2) k/uL PT (9.0-12.0) sec INR (<1.2) APTT (22.0-30.0) sec Sodium 142 (137-145) mmol/L Potassium 4.0 (3.5-5.1) mmol/L Chloride 108 H (98-107) mmol/L Carbon Dioxide 24 (22-30) mmol/L Anion Gap 10 mmol/L BUN 22 H (7-17) mg/dL Creatinine 0.80 (0.52-1.04) mg/dL Est GFR (CKD-EPI)AfAm >90 (>60 ml/min/1.73 sqM) Est GFR (CKD-EPI)NonAf 81 (>60 ml/min/1.73 sqM) Glucose 152 H (74-99) mg/dL Calcium 9.7 (8.4-10.2) mg/dL Total Bilirubin 0.9 (0.2-1.3) mg/dL AST 18 (14-36) U/L ALT 25 (9-52) U/L Alkaline Phosphatase 65 (38-126) U/L Total Creatine Kinase 48 (30-135) U/L CK-MB (CK-2) 0.5 (0.0-2.4) ng/mL CK-MB (CK-2) Rel Index 1.0 Troponin I <0.012 (0.000-0.034) ng/mL Total Protein 6.7 (6.3-8.2) g/dL Albumin 4.2 (3.5-5.0) g/dL 02/20/18 Range/Units 10:24 WBC (3.8-10.6) k/uL RBC (3.80-5.40) m/uL Hgb (11.4-16.0) gm/dL Hct (34.0-46.0) % MCV (80.0-100.0) fL MCH (25.0-35.0) pg MCHC (31.0-37.0) g/dL RDW (11.5-15.5) % Plt Count (150-450) k/uL Neutrophils % % Lymphocytes % % Monocytes % % Eosinophils % % Basophils % % Neutrophils # (1.3-7.7) k/uL Lymphocytes # (1.0-4.8) k/uL Monocytes # (0-1.0) k/uL Eosinophils # (0-0.7) k/uL Basophils # (0-0.2) k/uL PT 9.6 (9.0-12.0) sec INR 1.0 (<1.2) APTT 22.1 (22.0-30.0) sec Sodium (137-145) mmol/L Potassium (3.5-5.1) mmol/L Chloride (98-107) mmol/L Carbon Dioxide (22-30) mmol/L Anion Gap mmol/L BUN (7-17) mg/dL Creatinine (0.52-1.04) mg/dL Est GFR (CKD-EPI)AfAm (>60 ml/min/1.73 sqM) Est GFR (CKD-EPI)NonAf (>60 ml/min/1.73 sqM) Glucose (74-99) mg/dL Calcium (8.4-10.2) mg/dL Total Bilirubin (0.2-1.3) mg/dL AST (14-36) U/L ALT (9-52) U/L Alkaline Phosphatase (38-126) U/L Total Creatine Kinase (30-135) U/L CK-MB (CK-2) (0.0-2.4) ng/mL CK-MB (CK-2) Rel Index Troponin I (0.000-0.034) ng/mL Total Protein (6.3-8.2) g/dL Albumin (3.5-5.0) g/dL Disposition Clinical Impression: CVA (cerebral vascular accident) Disposition: ADMITTED IP TO THIS HOSP Is patient prescribed a controlled substance at d/c from ED?: No Referrals: Carmelita Chadwick MD [Primary Care Provider] - 1-2 days Decision Time: 11:54
[2018-02-20 10:38] LABS: Basophils # (A) 0.1 k/uL (0-0.2); Basophils % (A) 1 %; Eosinophils # (A) 0.2 k/uL (0-0.7); Eosinophils % (A) 3 %; HCT 50.1 % (34.0-46.0); HGB 15.9 gm/dL (11.4-16.0); Lymphocytes % (A) 14 %; MCH 29.6 pg (25.0-35.0); MCHC 31.7 g/dL (31.0-37.0); MCV 93.4 fL (80.0-100.0); Mean Platelet Volume 7.2; Monocytes # (A) 0.4 k/uL (0-1.0); Monocytes % (A) 5 %; Neutrophils # (A) 5.6 k/uL (1.3-7.7); Neutrophils % (A) 76 %; Platelet Count 223 k/uL (150-450); RBC 5.37 m/uL (3.80-5.40); RDW 13.7 % (11.5-15.5); WBC 7.4 k/uL (3.8-10.6)
[2018-02-20 10:47] LABS: ALT 25 U/L (9-52); AST 18 U/L (14-36); Albumin 4.2 g/dL (3.5-5.0); Alkaline Phosphatase 65 U/L (38-126); Anion Gap 10 mmol/L; Blood Urea Nitrogen 22 mg/dL (7-17); Calcium 9.7 mg/dL (8.4-10.2); Carbon Dioxide 24 mmol/L (22-30); Chloride 108 mmol/L (98-107); Glucose 152 mg/dL (74-99); Sodium 142 mmol/L (137-145); Total Bilirubin 0.9 mg/dL (0.2-1.3); Total Protein 6.7 g/dL (6.3-8.2)
[2018-02-20 10:50] LABS: Partial Thromboplastin Time 22.1 sec (22.0-30.0); Prothrombin Time 9.6 sec (9.0-12.0)
[2018-02-20 11:03] LABS: Creatine Kinase 48 U/L (30-135)
[2018-02-20 11:15] LABS: Creatine Kinase MB 0.5 ng/mL (0.0-2.4); Troponin I <0.012 ng/mL (0.000-0.034)
--- NOTE | 2018-02-20 11:24 | XR ---
EXAMINATION TYPE: XR chest 2V DATE OF EXAM: 02/20/2018 COMPARISON: 01/07/2018 HISTORY: Shortness of breath TECHNIQUE: Frontal and lateral views of the chest are obtained. FINDINGS: Scattered senescent parenchymal changes noted. Hyperinflation compatible with COPD. No evidence for infiltrate. No evidence for atelectasis. Heart size is stable. Mediastinal structures are stable and grossly unremarkable. No evidence for hilar prominence. Degenerative changes dorsal spine. IMPRESSION: 1. No evidence for acute pulmonary disease.
--- NOTE | 2018-02-20 11:39 | CT ---
EXAMINATION TYPE: CT brain wo con DATE OF EXAM: 02/20/2018 COMPARISON: 09/01/2016 HISTORY: Visual disturbance Rt eye CT DLP: 1082 mGycm Automated exposure control for dose reduction was used. FINDINGS: Ventricles and sulci appear normal. There is no mass effect nor midline shift. There is no sign of in tracranial hemorrhage. The calvarium is intact. There is hyperostosis. IMPRESSION: NO EVIDENCE OF ACUTE HEMORRHAGE OR MASS EFFECT. IF THERE IS CONCERN FOR ACUTE ISCHEMIA CORRELATE WITH MRI CLINICALLY WARRANTED
[2018-02-20] MEDS ORDERED: SODIUM CHLORIDE 0.9% 1,000 ML IV SCH (12:00)
[2018-02-20] MEDS: ASPIRIN 325 MG TAB PO SCH (12:17)
[2018-02-20 12:40] LABS: Amorphous Sediment,Urine Rare /hpf; Appearance,Urine Cloudy (Clear); Bacteria,Urine Occasional /hpf; Bilirubin,Urine Negative (Negative); Blood,Urine Negative (Negative); Color,Urine Light Yellow; Glucose,Urine (UA) Negative (Negative); Ketones,Urine Negative (Negative); Leukocyte Esterase,Urine Negative (Negative); Mucus,Urine Rare /hpf; Nitrite,Urine Negative (Negative); PH, Urine 5.5 (5.0-8.0); Protein,Urine Negative (Negative); RBC,Urine 1 /hpf (0-5); Specific Gravity,Urine 1.015 (1.001-1.035); Squamous Epithelial Cell,Urine 1 /hpf (0-4); Urobilinogen,Urine <2.0 mg/dL (<2.0); WBC,Urine 5 /hpf (0-5)
[2018-02-20] MEDS ORDERED: IPRATROPIUM-ALBUTEROL 3 ML NEB INHALATION PRN (13:36)
[2018-02-20] MEDS ORDERED: SODIUM CHLORIDE 0.9% 500 ML IV ONE (13:39)
--- NOTE | 2018-02-20 13:49 | P.HPIM ---
History of Present Illness H&P Date: 02/20/18 Chief Complaint: Blurry vision Patient is a 62-year-old female with a known history of hypertension, previous history of TIA, hypothyroidism and depression came to ER with complaints of right eye blurry vision and right upper extremities heaviness and dysarthria since yesterday. Patient says that she went for plasma donation yesterday and since then she has been having these symptoms. Today morning also patient is still having right upper extremities and the heaviness and blurry vision and called her physician who recommended her to go to ER for further evaluation. Otherwise denied any double vision or eye pain or complete visual loss.. No headache or dizziness or lightheadedness. Patient also feeling hot flashes since her cholecystectomy surgery in December 2017. She also complaining of right lower chest/right upper quadrant pain especially when she coughs. No nausea or vomiting. Patient does have on and off diarrhea since gallbladder surgery. No recent travel or sick contacts at home. Patient does smoke and daily basis. CT head showed no evidence of acute hemorrhage or mass effect. If there is concern for acute ischemia correlate with MRI as clinically warranted. BNP 22. Otherwise remaining lab workup negative. Review of Systems Constitutional: Patient denied any fever or chills. Patient does have hot flashes. No generalized weakness or weight loss. Abdomen: Patient denied nausea vomiting and diarrhea and abdominal pain. Cardiovascular: Patient denies any chest pain or short of breath no palpitations. Respiratory: patient denied any cough is from production. No shortness of breath Neurologic: Patient denied any numbness or tingling headache. Does have right upper extremities and heaviness and blurry vision. Musculoskeletal: Patient denies any complaints of joint swelling or deformity. Skin: Negative Psychiatric: Negative Endocrine: No heat or cold intolerance. No recent weight gain. Genitourinary: No dysuria or hematuria. All other 14 point ROS negative except the above Past Medical History Past Medical History: Hypertension, Thyroid Disorder Additional Past Medical History / Comment(s): cataracts, back pain, osteoporosis detiorating hip bones bilaterally from osteoporosis, has burning numbness and tingling from hips to feet bilaterally. History of Any Multi-Drug Resistant Organisms: None Reported Past Surgical History: Adenoidectomy, Section, Cholecystectomy, Hysterectomy, Joint Replacement, Tonsillectomy Additional Past Surgical History / Comment(s): disc fusions in the neck and back. bunionectomy, eye surgery, right shoulder surgery Past Anesthesia/Blood Transfusion Reactions: No Reported Reaction Past Psychological History: Anxiety, Depression Smoking Status: Current every day smoker Past Alcohol Use History: None Reported Past Drug Use History: None Reported - Past Family History Father Family Medical History: Hypertension Medications and Allergies Home Medications Medication Instructions Recorded Confirmed Type Aspirin 81 mg PO DAILY 06/18/14 02/20/18 History Citalopram Hydrobromide [CeleXA] 20 mg PO DAILY 06/21/16 02/20/18 History Losartan Potassium 100 mg PO DAILY 07/11/17 02/20/18 History Hydrochlorothiazide 12.5 mg PO DAILY 10/09/17 02/20/18 History Fluticasone Nasal [place] [Flonase 1 spray EA NOSTRIL DAILY 01/07/18 02/20/18 History Nasal [place]] Albuterol Inhaler [Ventolin Hfa 1 - 2 puff INHALATION RT-Q6H PRN 02/20/18 History Inhaler] Alendronate Sodium [Fosamax] 70 mg PO SALMON 02/20/18 02/20/18 History Allergies Allergy/AdvReac Type Severity Reaction Status Date / Time No Known Allergies Allergy Verified 02/20/18 09:56 Physical Exam Vitals: Vital Signs Temp Pulse Resp BP Pulse Ox 02/20/18 12:13 75 18 124/76 96 02/20/18 09:52 98 F 78 16 141/95 97 Intake and Output 02/19/18 02/20/18 02/20/18 22:59 06:59 14:59 Other: Weight 77.111 kg PHYSICAL EXAMINATION: Patient is lying in the bed comfortably, no acute distress, awake alert and oriented.. HEENT: Normocephalic. Neck is supple. Pupils reactive. Nostrils clear. Oral cavity is moist. Ears reveal no drainage. Neck reveals no JVD, carotid bruits, or thyromegaly. CHEST EXAMINATION: Trachea is central. Symmetrical expansion. Right basilar crackles. Lung mcclure clear to auscultation and percussion. CARDIAC: Normal S1, S2 with no gallops. No murmurs ABDOMEN: Soft. Bowel sounds normal. No organomegaly. No abdominal bruits. Extremities: reveal no edema. No clubbing or cyanosis Neurologically awake, alert, oriented x3 with well-coordinated movements. Patient is able to elevate her right arm. Skin: No rash or skin lesions. Psychiatric: Coperative. Nonsuicidal Musculoskeletal: No joint swelling or deformity. Normal range of motion. Results CBC & Chem 7: 02/20/18 10:24 02/20/18 10:24 Labs: Abnormal Lab Results - Last 24 Hours (Table) 02/20/18 02/20/18 02/20/18 Range/Units 10:24 10:24 12:09 Hct 50.1 H (34.0-46.0) % Chloride 108 H (98-107) mmol/L BUN 22 H (7-17) mg/dL Glucose 152 H (74-99) mg/dL Urine Appearance Cloudy H (Clear) Amorphous Sediment Rare H (None) /hpf Urine Bacteria Occasional H (None) /hpf Urine Mucus Rare H (None) /hpf Thrombosis Risk Factor Assmnt - DVT/VTE Prophylaxis DVT/VTE Prophylaxis: Pharmacologic Prophylaxis ordered Assessment and Plan Assessment: Right Eye blurry vision, dysarthria and right upper extremities heaviness likely due to TIA with possible CVA. CT head negative Recent laparoscopic cholecystectomy in December 2017 Right lower chest pleuritic pain with possible atelectasis Hypertension Hypothyroidism Previous history of TIA Anxiety and depression Chronic back pain and osteoporosis Nicotine addiction with daily smoking DVT prophylaxis Plan: Patient will be continued on telemetry monitoring. Continue with aspirin. 2-D echocardiogram and carotid duplex was ordered. Neurology was consulted. Patient will be started on DuoNeb's and incentive spirometry. Chest x-ray is negative for any pneumonia. will get a right upper quadrant abdominal ultrasound. Liver enzymes are within normal limits. Smoking cessation has been counseled extensively. will continue the current management and further recommendations based on the clinical course. Time with Patient: Greater than 30
[2018-02-20 14:43] VITALS: BMI 29.2
[2018-02-20] MEDS: HEPARIN SODIUM,PORCINE 5,000 UNIT/ML 1 ML VIAL SQ SCH ×2 (18:23→23:03)
[2018-02-20] MEDS: FAMOTIDINE 20 MG TAB PO SCH (20:43)
--- NOTE | 2018-02-20 23:51 | US ---
EXAMINATION TYPE: US carotid duplex BILAT DATE OF EXAM: 02/20/2018 COMPARISON: NONE CLINICAL HISTORY: Stenosis. Vision loss. EXAM MEASUREMENTS: RIGHT: Peak Systolic Velocity (PSV) cm/sec ----- Right CCA: 89.2 ----- Right ICA: 65.2 ----- Right ECA: 95.5 ICA/CCA ratio: 0.7 RIGHT: End Diastole cm/sec ----- Right CCA: 24.8 ----- Right ICA: 22.2 ----- Right ECA: 26.0 LEFT: Peak Systolic Velocity (PSV) cm/sec ----- Left CCA: 98.0 ----- Left ICA: 89.2 ----- Left ECA: 118.2 ICA/CCA ratio: LEFT: End Diastole cm/sec ----- Left CCA: 33.6 ----- Left ICA: 39.9 ----- Left ECA: 24.8 VERTEBRALS (direction of flow): Right Vertebral: Antegrade Left Vertebral: Antegrade Rhythm: Normal Vessels dive deep. No significant stenosis seen. IMPRESSION: There is antegrade flow in the vertebral arteries. The images and measurements suggest 1 0% stenosis in both internal carotid arteries. Criteria for Assigning % of Stenosis / Diameter reduction (Estimation based on the indirect measurements of the internal carotid artery velocities (ICA PSV). 1. Normal (no stenosis)=ICA PSV < 125 cm/s: ratio < 2.0: ICA EDV<40 cm/s. 2. Less than 50% stenosis=ICA PSV < 125 cm/s: ratio < 2.0: ICA EDV<40 cm/s. 3. 50 to 69% stenosis=ICA PSV of 125 to 230 cm/s: ration 2.0 ? 4.0: ICA EDV 40-100 cm/s. 4. Greater than 70% stenosis to near occlusion= ICA PSV > 230 cm/s: ratio > 4.0: ICA EDV > 100 cm/s. 5. Near occlusion= ICA PSV velocities may be low or undetectable: variable ratio and ICA EDV. 6. Total occlusion=unable to detect flow.
--- NOTE | 2018-02-20 23:53 | US ---
EXAMINATION TYPE: US abdomen limited DATE OF EXAM: 02/20/2018 COMPARISON: NONE CLINICAL HISTORY: Right upper quadrant pain. RUQ pain cholecystectomy 01/15/2018 EXAM MEASUREMENTS: Liver Length: 16.8 cm Gallbladder Wall: Surgically absent cm CBD: 0.50 cm Right Kidney: 9.4 x 3.8 x 3.3 cm Pancreas: wnl Liver: Heterogenous two hypoechoic areas seen measuring 1. 2.9 x 1.5 x 33.5 cm. 2. 1.1 x 2.6 x 2.1cm suggestive of focal sparing. Gallbladder: Surgically absent Evidence for sonographic John's sign: No CBD: wnl Right Kidney: wnl IMPRESSION: No discrete liver mass. No dilated ducts. Cholecystectomy noted. No free fluid.
[2018-02-21 06:56] LABS: Cholesterol 209 mg/dL (<200); HDL Cholesterol 53 mg/dL (40-60); LDL Cholesterol,Calculated 124 mg/dL (0-99); Triglycerides 160 mg/dL (<150)
[2018-02-21] MEDS: HEPARIN SODIUM,PORCINE 5,000 UNIT/ML 1 ML VIAL SQ SCH ×3 (08:41→23:34)
[2018-02-21] MEDS: LOSARTAN 50 MG TAB PO SCH (08:42)
[2018-02-21] MEDS: ASPIRIN 325 MG TAB PO SCH (08:42)
[2018-02-21] MEDS: CITALOPRAM HYDROBROMIDE 20 MG TAB PO SCH (08:42)
[2018-02-21] MEDS: FAMOTIDINE 20 MG TAB PO SCH ×2 (08:42→20:39)
--- NOTE | 2018-02-21 08:48 | ECHOF ---
Referral Reason:Thrombus MEASUREMENTS -------- HEIGHT: 162.6 cm WEIGHT: 77.1 kg BP: 124/76 RVIDd: 2.7 cm (< 3.3) IVSd: 1.1 cm (0.6 - 1.1) LVIDd: 4.0 cm (3.9 - 5.3) LVPWd: 1.2 cm (0.6 - 1.1) IVSs: 1.6 cm LVIDs: 2.7 cm LVPWs: 1.4 cm LA Diam: 2.9 cm (2.7 - 3.8) LAESV Index (A-L): 13.49 ml/m Ao Diam: 3.0 cm (2.0 - 3.7) AV Cusp: 2.2 cm (1.5 - 2.6) MV EXCURSION: 17.570 mm (> 18.000) MV EF SLOPE: 107 mm/s (70 - 150) EPSS: 1.2 cm MV E Apollo: 0.79 m/s MV DecT: 231 ms MV A Apollo: 1.11 m/s MV E/A Ratio: 0.72 AR PHT: 535 ms RAP: 5.00 mmHg RVSP: 24.09 mmHg FINDINGS -------- Sinus rhythm. This was a technically adequate study. The left ventricular size is normal. There is borderline concentric left ventricular hypertrophy. Overall left ventricular systolic function is normal with, an EF between 55 - 60 %. The right ventricle is normal in size. Normal LA size by volume 22+/-6 ml/m2. The right atrium is normal in size. The aortic valve is trileaflet and appears structurally normal. There is mild aortic regurgitation. The mitral valve is normal. No mitral regurgitation. Mild tricuspid regurgitation present. Right ventricular systolic pressure is normal at < 35 mmHg. The right ventricular systolic pressure, as measured by Doppler, is 24.09mmHg. Trace/mild (physiologic) pulmonic regurgitation. The aortic root size is normal. Normal inferior vena cava with normal inspiratory collapse consistent with estimated right atrial pre ssure of 5 mmHg. There is no pericardial effusion. CONCLUSIONS -------- 1. Sinus rhythm. 2. This was a technically adequate study. 3. The left ventricular size is normal. 4. There is borderline concentric left ventricular hypertrophy. 5. Overall left ventricular systolic function is normal with, an EF between 55 - 60 %. 6. Normal LA size by volume 22+/-6 ml/m2. 7. The aortic valve is trileaflet and appears structurally normal. 8. There is mild aortic regurgitation. 9. The mitral valve is normal. 10. Mild tricuspid regurgitation present. 11. Right ventricular systolic pressure is normal at < 35 mmHg. 12. Trace/mild (physiologic) pulmonic regurgitation. 13. The aortic root size is normal. 14. Normal inferior vena cava with normal inspiratory collapse consistent with estimated right atrial pressure of 5 mmHg. 15. There is no pericardial effusion. ROUGH PATCHER: Yvrose Tong RDCS
--- NOTE | 2018-02-21 15:47 | P.CONS ---
History of Present Illness - Reason for Consult Consult date: 02/21/18 Rule out stroke - Chief Complaint Right arm numbness and dysarthria - History of Present Illness This is a pleasant 62-year-old female being evaluated by the neurology service for the above complaints. Yesterday afternoon she was donating plasma. The procedure had begun and she started to feel warm and nauseous. She lost some central vision in her right I and started to feel heaviness and numbness in her right arm. It was noticed that she was having trouble forming her words also. He presented to the [facility] emergency room for evaluation. Initial CT of the brain showed no acute intracranial abnormalities. She had an echocardiogram that was relatively normal. Her carotid Doppler showed no hemodynamically significant stenosis. Blood work was relatively normal. Her triglycerides were 160 cholesterol was 209 LDL was 124 and her HDL was 53. She thinks her symptoms have resolved but also thinks there might be some numbness/ heaviness still in her right arm. She also complains of occasionally having trouble with word finding. She's been started on aspirin and Lipitor. Denies any headache or recent illness. At the time of my exam she is resting comfortably in bed in no acute distress. Review of Systems All systems: negative Constitutional: Reports as per HPI Past Medical History Past Medical History: Hypertension, Sleep Apnea/CPAP/BIPAP, Thyroid Disorder Additional Past Medical History / Comment(s): cataracts, back pain, osteoporosis detiorating hip bones bilaterally from osteoporosis, has burning numbness and tingling from hips to feet bilaterally. History of Any Multi-Drug Resistant Organisms: None Reported Past Surgical History: Adenoidectomy, Section, Cholecystectomy, Hysterectomy, Joint Replacement, Tonsillectomy Additional Past Surgical History / Comment(s): disc fusions in the neck and back. bunionectomy, eye surgery, right shoulder surgery Past Anesthesia/Blood Transfusion Reactions: Postoperative Nausea & Vomiting ( PONV) Past Psychological History: Anxiety, Depression, PTSD Additional Psychological History / Comment(s): taking valium prior to Thyroid biopsy scheduled for Jun 21 Smoking Status: Current every day smoker Past Alcohol Use History: None Reported Past Drug Use History: None Reported - Past Family History Father Family Medical History: Dementia, Hypertension, Neurologic Disorder Additional Family Medical History / Comment(s): Parkinson's Son(s) Family Medical History: Asthma Mother Additional Family Medical History / Comment(s): GENEVIEVE Villalobos. Medications and Allergies Home Medications Medication Instructions Recorded Confirmed Type Aspirin 81 mg PO DAILY 06/18/14 02/20/18 History Citalopram Hydrobromide [CeleXA] 20 mg PO DAILY 06/21/16 02/20/18 History Losartan Potassium 100 mg PO DAILY 07/11/17 02/20/18 History Hydrochlorothiazide 12.5 mg PO DAILY 10/09/17 02/20/18 History Fluticasone Nasal [place] [Flonase 1 spray EA NOSTRIL DAILY 01/07/18 02/20/18 History Nasal [place]] Albuterol Inhaler [Ventolin Hfa 1 - 2 puff INHALATION RT-Q6H PRN 02/20/18 History Inhaler] Alendronate Sodium [Fosamax] 70 mg PO SALMON 02/20/18 02/20/18 History Allergies Allergy/AdvReac Type Severity Reaction Status Date / Time No Known Allergies Allergy Verified 02/20/18 09:56 Physical Exam Vitals: Vital Signs Temp Pulse Resp BP BP Pulse Ox 02/21/18 12:00 96.9 F L 74 18 123/86 93 L 02/21/18 08:00 97.0 F L 88 20 107/68 95 02/21/18 04:00 70 16 109/71 94 L 02/21/18 00:00 79 16 105/66 93 L 02/20/18 20:00 73 16 126/79 95 02/20/18 16:00 97.3 F L 72 20 118/72 93 L Intake and Output 02/21/18 02/21/18 02/21/18 06:59 14:59 22:59 Other: # Voids 1 5 Weight 77.6 kg - Constitutional General appearance: cooperative, no acute distress - EENT Eyes: no abnormal pupil, EOMI, PERRLA, no ptosis ENT: hearing grossly normal - Neck Neck: normal ROM, no rigidity - Respiratory Respiratory: negative: prolonged expiration, prolonged inspiration - Cardiovascular Rhythm: regular - Gastrointestinal General gastrointestinal: no distended, no tenderness - Neurologic The patient is alert awake and oriented 3. Speech and language are normal. There is no facial asymmetry. Strength is 5 out of 5 in bilateral upper and lower extremities. There is a slight sensory deficit of the right upper extremity. No tremors or seizures are seen. Cranial nerves II through XII are intact globally. No pronator drift. No dysmetria or dysdiadochokinesia. Results CBC & Chem 7: 02/20/18 10:24 02/20/18 10:24 Labs: Abnormal Lab Results - Last 24 Hours (Table) 02/21/18 Range/Units 06:18 Triglycerides 160 H (<150) mg/dL Cholesterol 209 H (<200) mg/dL LDL Cholesterol, Calc 124 H (0-99) mg/dL Assessment and Plan (1) Expressive aphasia Current Visit: Yes Status: Acute Code(s): R47.01 - APHASIA SNOMED Code(s) : 057352117 (2) Right arm numbness Current Visit: Yes Status: Acute Code(s): R20.2 - PARESTHESIA OF SKIN SNOMED Code(s): 019531540 (3) Visual disturbance Current Visit: Yes Status: Resolved Code(s): H53.9 - UNSPECIFIED VISUAL DISTURBANCE SNOMED Code(s): 68652548 (4) Hyperlipidemia Current Visit: Yes Status: Chronic Code(s): E78.5 - HYPERLIPIDEMIA, UNSPECIFIED SNOMED Code(s): 81337619 (5) Hypertension Current Visit: Yes Status: Chronic Code(s): I10 - ESSENTIAL (PRIMARY) HYPERTENSION SNOMED Code(s): 25235630 Plan: The patient is exhibiting symptoms consistent with an acute ischemic stroke in that she has persistent right upper extremity symptoms with some mild expressive aphasia. The brain is pending. She will continue aspirin 325 mg and Lipitor at current dose. Continue neurological checks. Recommend physical , occupational and speech therapy. Strongly recommend smoking cessation. Continue to follow and make recommendations based on the above studies. I have performed a history and physical on the above patient. I have reviewed the above note, and agree.
[2018-02-21] MEDS: ATORVASTATIN 40 MG TAB PO SCH (20:39)
--- NOTE | 2018-02-21 23:28 | P.PN ---
Subjective Progress Note Date: 02/21/18 Principal diagnosis: TIA possible CVA. Patient is a 62-year-old female with a known history of hypertension, previous history of TIA, hypothyroidism and depression came to ER with complaints of right eye blurry vision and right upper extremities heaviness and dysarthria since yesterday. Patient says that she went for plasma donation yesterday and since then she has been having these symptoms. Today morning also patient is still having right upper extremities and the heaviness and blurry vision and called her physician who recommended her to go to ER for further evaluation. Otherwise denied any double vision or eye pain or complete visual loss.. No headache or dizziness or lightheadedness. Patient also feeling hot flashes since her cholecystectomy surgery in December 2017. She also complaining of right lower chest/right upper quadrant pain especially when she coughs. No nausea or vomiting. Patient does have on and off diarrhea since gallbladder surgery. No recent travel or sick contacts at home. Patient does smoke and daily basis. CT head showed no evidence of acute hemorrhage or mass effect. If there is concern for acute ischemia correlate with MRI as clinically warranted. BNP 22. Otherwise remaining lab workup negative. 02/21/2018 Patient denied any complaints of chest pain or shortness of breath. Patient was complaining of bloody discharge from right nipple. Patient had recent ultrasound was negative and recommended repeat ultrasound in the symptoms recur. Otherwise right upper extremity weakness and heaviness is much improved now. Dysarthria and blurriness of vision is much improved as well. Neurology was consulted. No nausea vomiting or abdominal pain. All other review of systems negative except as above. Current medications reviewed Objective - Vital Signs Vital signs: Vital Signs Temp 96.9 F L 02/21/18 12:00 Pulse 74 02/21/18 12:00 Resp 18 02/21/18 12:00 BP 123/86 02/21/18 12:00 Pulse Ox 93 L 02/21/18 12:00 Intake & Output 02/20/18 02/21/18 02/21/18 18:59 06:59 18:59 Intake Total 0 Balance 0 Weight 77.2 kg 77.6 kg Intake: Oral 0 Other: # Voids 1 1 5 - Exam PHYSICAL EXAMINATION: Patient is lying in the bed comfortably, no acute distress, awake alert and oriented.. HEENT: Normocephalic. Neck is supple. Pupils reactive. Nostrils clear. Oral cavity is moist. Ears reveal no drainage. Neck reveals no JVD, carotid bruits, or thyromegaly. CHEST EXAMINATION: Trachea is central. Symmetrical expansion. Lung mcclure clear to auscultation and percussion. CARDIAC: Normal S1, S2 with no gallops. No murmurs ABDOMEN: Soft. Bowel sounds normal. No organomegaly. No abdominal bruits. Extremities: reveal no edema. No clubbing or cyanosis Neurologically awake, alert, oriented x3 with well-coordinated movements. No focal deficits noted Skin: No rash or skin lesions. Psychiatric: Coperative. Nonsuicidal Musculoskeletal: No joint swelling or deformity. Normal range of motion. - Labs CBC & Chem 7: 02/20/18 10:24 02/20/18 10:24 Labs: Abnormal Lab Results - Last 24 Hours (Table) 02/21/18 Range/Units 06:18 Triglycerides 160 H (<150) mg/dL Cholesterol 209 H (<200) mg/dL LDL Cholesterol, Calc 124 H (0-99) mg/dL Assessment and Plan Assessment: Right Eye blurry vision, dysarthria and right upper extremities heaviness likely due to TIA with possible CVA. CT head negative Recent laparoscopic cholecystectomy in December 2017 Right lower chest pleuritic pain with possible atelectasis. Improved now Hypertension Hypothyroidism Hyperlipidemia Previous history of TIA Anxiety and depression Chronic back pain and osteoporosis Nicotine addiction with daily smoking DVT prophylaxis Plan: Patient will be continued on telemetry monitoring. Continue with aspirin. 2-D echocardiogram and carotid duplex was ordered. 2-D echocardiogram showed normal ejection fraction. Carotid duplex showed no significant stenosis. Neurology was consulted. Patient will be started on DuoNeb's and incentive spirometry. Chest x-ray is negative for any pneumonia. Ultrasound of right upper quadrant showed no abnormality.. Liver enzymes are within normal limits. Smoking cessation has been counseled extensively. will continue the current management and further recommendations based on the clinical course. Anticipate to be discharged tomorrow. Time with Patient: Greater than 30
[2018-02-22] MEDS: CITALOPRAM HYDROBROMIDE 20 MG TAB PO SCH (07:35)
[2018-02-22] MEDS: FAMOTIDINE 20 MG TAB PO SCH ×2 (07:35→20:14)
[2018-02-22] MEDS: ASPIRIN 325 MG TAB PO SCH (07:35)
[2018-02-22] MEDS: HEPARIN SODIUM,PORCINE 5,000 UNIT/ML 1 ML VIAL SQ SCH ×2 (07:35→15:46)
[2018-02-22] MEDS: LOSARTAN 50 MG TAB PO SCH (07:36)
--- NOTE | 2018-02-22 09:35 | MR ---
EXAMINATION TYPE: MR brain wo/w con DATE OF EXAM: 02/22/2018 COMPARISON: Correlation CT 02/20/2018 HISTORY: 62-year-old female right eye visual disturbance, neurologic deficits, CVA like symptoms TECHNIQUE: Multiplanar, multisequence images of the brain and brainstem were acquired before and aft er administration of 7.5 mL IV Gadavist. Diffusion weighted imaging is performed. FINDINGS: No evidence for acute infarction, hemorrhage, mass, mass effect, midline shift, herniation, effacemen t of basal cisterns, or extra-axial fluid collection. The ventricles and sulci are age-appropriate. Major intracranial flow voids are intact. T2/FLAIR weighted sequences show minimal scattered burden of white white matter change in the subcort ical region of both cerebral hemispheres with less than 5 on either side. Midline structures demonstrate normal morphology. The craniocervical junction is normal. Post contrast images demonstrate no evidence of pathologic enhancement. Dural venous sinuses are pat ent. Small amount of trapped fluid in the right greater than left mastoid air cells. Orbits and globes are intact. IMPRESSION: 1. No acute intracranial abnormality seen. 2. Minimal burden of T2 bright white matter foci, nonspecific, likely relating to changes of chronic small vessel ischemic disease. 3. Small amount of trapped fluid in the right greater than left mastoid air cells. Correlate for any mastoid pain to exclude mastoiditis.
--- NOTE | 2018-02-22 14:15 | P.PN ---
Subjective Progress Note Date: 02/22/18 Principal diagnosis: TIA This is a pleasant 62-year-old female continuing be evaluated by the neurology service for an episode of right arm numbness and speech difficulty. While she was donating plasma. Sounds like she started to experience some vasovagal symptoms. She lost some vision in her right eye and had some heaviness in her right arm. Her symptoms persisted for a while. No thought her symptoms are totally resolved now. Initial CT of the brain showed no acute intracranial abnormalities. Subsequent MRI of the brain showed no acute ischemic changes. She also had some minimal nonspecific subcortical white matter changes. She's had no new neurological complaints since our last exam. My exam she is resting comfortably in bed in no acute distress. He is also being worked up for some right upper quadrant fullness/pain Objective - Vital Signs Vital signs: Vital Signs Temp 97.2 F L 02/22/18 11:30 Pulse 74 02/22/18 11:30 Resp 18 02/22/18 11:30 BP 132/87 02/22/18 11:30 Pulse Ox 94 L 02/22/18 11:30 Intake & Output 02/21/18 02/22/18 02/22/18 18:59 06:59 18:59 Intake Total 1050 Balance 1050 Weight 77.9 kg Intake: Oral 1050 Other: Voiding Method Toilet # Voids 5 2 - Constitutional General appearance: Present: cooperative, no acute distress - EENT Eyes: Present: EOMI, PERRLA. Absent: abnormal pupil, ptosis ENT: Present: hearing grossly normal - Neck Neck: Present: normal ROM. Absent: rigidity - Respiratory Respiratory: negative: prolonged expiration, prolonged inspiration - Cardiovascular Rhythm: regular - Gastrointestinal General gastrointestinal: Absent: distended - Neurologic Neurologic Comment(s): The patient is alert awake and oriented 3. Speech and language are normal. There is no facial asymmetry. Strength is 5 out of 5 in bilateral upper and lower extremities. There is no sensory deficit. No tremors or seizures are seen. Cranial nerves II through XII are intact globally. - Labs CBC & Chem 7: 02/20/18 10:24 02/20/18 10:24 Labs: Microbiology - Last 24 Hours (Table) 02/20/18 14:53 Blood Culture - Preliminary Blood No Growth after 24 hours Assessment and Plan (1) Expressive aphasia Current Visit: Yes Status: Resolved Code(s): R47.01 - APHASIA SNOMED Code( s): 345774919 (2) Right arm numbness Current Visit: Yes Status: Resolved Code(s): R20.2 - PARESTHESIA OF SKIN SNOMED Code(s): 073073615 (3) Visual disturbance Current Visit: Yes Status: Resolved Code(s): H53.9 - UNSPECIFIED VISUAL DISTURBANCE SNOMED Code(s): 37671767 (4) Hyperlipidemia Current Visit: Yes Status: Chronic Code(s): E78.5 - HYPERLIPIDEMIA, UNSPECIFIED SNOMED Code(s): 72682057 (5) Hypertension Current Visit: Yes Status: Chronic Code(s): I10 - ESSENTIAL (PRIMARY) HYPERTENSION SNOMED Code(s): 36973607 (6) TIA (transient ischemic attack) Current Visit: Yes Status: Acute Code(s): G45.9 - TRANSIENT CEREBRAL ISCHEMIC ATTACK, UNSPECIFIED SNOMED Code(s): 693367907 Plan: The patient has experienced an episode of transient cerebral ischemia. She will continue aspirin 325 mg and Lipitor at current dose. Strongly recommend smoking cessation. No further neurological workup is needed. She will follow up in outpatient setting with her primary care physician. I have performed a history and physical on the above patient. I have reviewed the above note, and agree.
[2018-02-22] MEDS ORDERED: ALBUTEROL NEBULIZED 2.5 MG/3 ML INHALATION PRN (14:26)
[2018-02-22] MEDS: IOPAMIDOL-300 CONTRAST 30 ML VIAL (ORAL USE) PO PRN ×2 (15:35→16:25)
--- NOTE | 2018-02-22 18:15 | PN ---
PROGRESS NOTE DATE OF SERVICE: 02/22/2018 This 62-year-old woman was admitted with multiple symptomatology, has abdominal pain. The patient is followed by Dr. Carmelita Chadwick in the outpatient setting. Recently patient had multiple evaluations regarding the right breast which is also being done outpatient along with Dr. Dariel Chadwick. The patient also had right upper quadrant abdominal pain. Ultrasound did not show any acute abnormality. Patient also complaining of right eye vision loss, diminished vision which is transient after donating plasma. The brain MRI did not show any acute abnormality. Patient being closely monitored. Neurology following the patient closely. PAST MEDICAL HISTORY: Reviewed. REVIEW OF SYSTEMS: ENT: As mentioned earlier. CARDIOVASCULAR: No angina or palpitations. RESPIRATORY: No cough. GI as mentioned earlier. : No dysuria. NERVOUS SYSTEM: No numbness or weakness. CURRENT MEDICATIONS: Reviewed and include: 1. Ventolin 2.5 q.6h p.r.n. 2. DuoNeb q.i.d. and p.r.n. 3. Aspirin 320 mg daily. 4. Lipitor 40 mg q.h.s. 5. Celexa 20 mg daily. 6. Pepcid 20 mg b.i.d. 7. Flonase. 8. Heparin 5000 subcu q.h.s. 9. HydroDIURIL 12.5 mg daily. 10.Cozaar 100 mg daily. PHYSICAL EXAM: Patient is alert, oriented x3. Pulse is 74, blood pressure 132/87, respiration 18, temp 97.2, pulse ox 94 percent on room air. HEENT: Conjunctivae normal. Oral mucosa moist. Neck is no jugular venous distention. No carotid bruit. No lymph node enlargement. Cardiovascular: S1, S2. Respiratory: Breath sounds diminished in the bases. No rhonchi. No crackles. ABDOMEN: Soft, nontender. No mass palpable. Legs are no edema, no swelling. Central nervous system: No focal deficits. LABS: CBC within normal limits. Glucose 152. Cholesterol noted. UA noted. ASSESSMENT: 1. Right eye visual loss, possible acute transient ischemic attack. 2. Right upper quadrant abdominal pain with negative ultrasound. 3. Recent laparoscopic cholecystectomy. 4. Right breast mass lesion under outpatient evaluation. 5. Right lower chest pleuritic pain and atelectasis. 6. Hypertension. 7. Hypothyroidism. 8. Hyperlipidemia. 9. Previous history of transient ischemic attack. 10.Anxiety/depression. 11.Chronic back pain, osteoporosis. 12.History of nicotine dependence. RECOMMENDATIONS AND DISCUSSION: Recommend to continue current medications, management and symptomatic treatment. Continue DVT prophylaxis. I would also recommend a D-dimer, if it is positive, order a spiral CT of the chest. CT scan of the abdomen and pelvis. See orders for details. Continue the Lipitor. Prognosis guarded because of multiple complex issues. Further recommendations to follow. Closely follow with Neurology. MMODL / IJN: [id number] /
--- NOTE | 2018-02-22 19:34 | CT ---
EXAMINATION TYPE: CT abdomen pelvis wo con DATE OF EXAM: 02/22/2018 COMPARISON: 10/10/2015 HISTORY: 62-year-old female Upper abdominal pain radiating down right side abdomen into pelvis CT DLP: 779.0 mGycm. Automated exposure control for dose reduction was used. TECHNIQUE: Contiguous axial scanning of the abdomen and pelvis without IV contrast. Coronal and sagit salas reconstructions performed. FINDINGS: Heart upper limits of normal in size without pericardial effusion. Lung bases clear without pleural e ffusion. Mild circumferential wall thickening of the distal esophagus. Noncontrast appearance of the liver, adrenal glands, kidneys, spleen, and pancreas show no gross abno rmality. Cholecystectomy clips are present. No dilated small bowel, free fluid, or free air. Normal appendix. Mild to moderate scattered stool particularly in the right hemicolon. No pericolonic inflammatory change. No mesenteric or retroperitoneal lymphadenopathy. Focal areas of soft tissue stranding and soft tissu e nodularity within the subcutaneous fat of the mid and lower abdomen suggests subcutaneous injection s. Bladder partially distended. Uterus surgically absent. Both ovaries are visualized. Pelvic phlebolith s. No abnormal fluid collection in the pelvis or pelvic lymphadenopathy. Bones: Mild degenerative changes at the hips. Transitional lumbosacral segment is noted as a lumbariz ed S1. There is degenerative disc disease greatest at L5-S1. IMPRESSION: 1. Mild circumferential wall thickening of the distal esophagus could represent esophagitis. Correla te with patient's symptoms. 2. Otherwise, no acute inflammatory process identified in the abdomen or pelvis to explain the patie nt's symptoms.
[2018-02-22] MEDS: ATORVASTATIN 40 MG TAB PO SCH (20:14)
[2018-02-23] MEDS: HEPARIN SODIUM,PORCINE 5,000 UNIT/ML 1 ML VIAL SQ SCH ×2 (00:08→09:27)
[2018-02-23 00:14] VITALS: RESP 16
[2018-02-23] MEDS ORDERED: PATIENT'S OWN MED (Alendronate Sodium [Fosamax] 70 MG) PO SCH (06:00)
[2018-02-23 06:49] LABS: Basophils # (A) 0.1 k/uL (0-0.2); Basophils % (A) 2 %; Eosinophils # (A) 0.2 k/uL (0-0.7); Eosinophils % (A) 5 %; HCT 43.4 % (34.0-46.0); HGB 13.7 gm/dL (11.4-16.0); Lymphocytes % (A) 18 %; MCH 28.8 pg (25.0-35.0); MCHC 31.5 g/dL (31.0-37.0); MCV 91.6 fL (80.0-100.0); Mean Platelet Volume 7.2; Monocytes # (A) 0.4 k/uL (0-1.0); Monocytes % (A) 7 %; Neutrophils # (A) 3.4 k/uL (1.3-7.7); Neutrophils % (A) 66 %; Platelet Count 164 k/uL (150-450); RBC 4.73 m/uL (3.80-5.40); RDW 13.4 % (11.5-15.5); WBC 5.2 k/uL (3.8-10.6)
[2018-02-23 07:04] LABS: Anion Gap 5 mmol/L; Blood Urea Nitrogen 18 mg/dL (7-17); Calcium 9.4 mg/dL (8.4-10.2); Carbon Dioxide 28 mmol/L (22-30); Chloride 108 mmol/L (98-107); Glucose 90 mg/dL (74-99); Potassium 4.8 mmol/L (3.5-5.1); Sodium 141 mmol/L (137-145)
[2018-02-23] MEDS ORDERED: HYDROCHLOROTHIAZIDE 12.5 MG CAP PO SCH (09:00)
[2018-02-23] MEDS ORDERED: FLUTICASONE 50MCG/SPRAY NASAL 16GM EA NOSTRIL SCH (09:00)
[2018-02-23 09:27] VITALS: TEMP 97.5
[2018-02-23] MEDS: ASPIRIN 325 MG TAB PO SCH (09:28)
[2018-02-23] MEDS: FAMOTIDINE 20 MG TAB PO SCH (09:28)
[2018-02-23] MEDS: CITALOPRAM HYDROBROMIDE 20 MG TAB PO SCH (09:28)
[2018-02-23] MEDS: LOSARTAN 50 MG TAB PO SCH (09:28)
[2018-02-23 11:47] VITALS: BP 135/76; PULSE 68
--- NOTE | 2018-02-24 08:11 | DS ---
DISCHARGE SUMMARY DATE OF SERVICE: 02/23/2018. FINAL DIAGNOSES: 1. Right eye visual loss, possible acute transient ischemic attack. 2. Right upper quadrant abdominal pain with negative ultrasound. 3. Possible esophagitis. 4. Recent laparoscopic cholecystectomy. 5. Right breast mass lesion under outpatient evaluation. 6. Right lower pleuritic chest pain, atelectasis. 7. Hypertension. 8. Hypothyroidism. 9. Hyperlipidemia. 10.Previous history of transient ischemic attack. 11.Anxiety, depression. 12.Chronic back pain. 13.Osteoporosis. 14.History of nicotine dependence. DISCHARGE DISPOSITION: The patient is being discharged in stable condition with guarded prognosis. HISTORY OF PRESENT ILLNESS: This is a 62-year-old woman with a past medical history of multiple medical problems was admitted with right eye visual difficulties. The MRI did not show acute abnormality. TIA was considered and the patient is scheduled for an MRA as an outpatient. Neurology saw the patient. The patient also had a high triglycerides 160, cholesterol 209, LDL is 124. The patient also had multiple other medical was as mentioned earlier, right breast lesion and right upper quadrant abdominal pain both of which are to be followed by Dr. Dariel Chadwick in the outpatient setting. Overall patient made significant improvement. The patient will be discharged in stable condition with guarded prognosis with the following advice. On exam, vital status are stable. Cardiovascular: S1, S2. Abdomen: Soft, nontender. Nervous System: No focal deficits. DISCHARGE ADVICE: 1. Diet is cardiac. 2. Activity limited until followup. 3. Follow up with Dr. Carmelita Chadwick in 2-3 days. 4. Follow up with Dr. Dairel Chadwick in 1 week. 5. Follow up with Dr. Raphael in 1 week. MEDICATIONS: Medications are as follows: 1. Fosamax 70 mg p.o. Saturday. 2. Celexa 20 mg p.o. daily. 3. Flonase 1 spray daily. 4. Hydrochlorothiazide 12.5 mg daily. 5. Losartan 100 mg p.o. daily. 6. Ventolin 2 puffs q.i.d. and p.r.n. 7. Aspirin 325 mg p.o. daily. 8. Lipitor 40 mg q.h.s. 9. Omeprazole 20 mg p.o. b.i.d. Outpatient follow up with the MRA as recommended. Once again, the patient discharged in stable condition with guarded prognosis. Patient might require also endoscopy by Dr. Dariel Chadwick for evaluation of the upper GI symptoms. A CT scan was also done that showed some esophageal thickening. Total time taken is 35 minutes. MMWILLIAML / DIONNAN: [id number] /
--- NOTE | 2018-02-25 09:23 | USB ---
Reason for exam: clinical finding. History: Patient is postmenopausal. Family history of breast cancer in paternal aunt. US discontinued breast bx RT of the right breast, January 13, 2018. Excisional biopsy of the left breast. Indicated problem(s): bloody discharge in the right breast. US Breast RT Right complete breast ultrasound includes all four quadrants, the retroareolar region and axilla. Finding demonstrates 1.4cm ductal ectasia with debris at 9 o'clock. Biopsy recommended. ASSESSMENT: Suspicious, BI-RAD 4 RECOMMENDATION: Ultrasound core biopsy of the right breast.
== END 2018-02-23 14:38 | disposition home or self-care (01) | DRG 69 ==
LOC: EC 09:49 → 6SEL 11:55
PROVIDERS: ADMIT Hospitalist; ATTEND Hospitalist
DX: G45.9 Transient cerebral ischemic attack, unspecified (principal); J98.11 Atelectasis; E03.9 Hypothyroidism, unspecified; E78.1 Pure hyperglyceridemia; E78.5 Hyperlipidemia, unspecified; F17.210 Nicotine dependence, cigarettes, uncomplicated; F32.9 Major depressive disorder, single episode, unspecified; F43.10 Post-traumatic stress disorder, unspecified; G47.30 Sleep apnea, unspecified; G89.29 Other chronic pain; I10 Essential (primary) hypertension; M81.0 Age-related osteoporosis without current pathological fracture; H26.9 Unspecified cataract; N64.89 Other specified disorders of breast; M54.9 Dorsalgia, unspecified; R07.81 Pleurodynia; R10.11 Right upper quadrant pain; F41.9 Anxiety disorder, unspecified; Z79.899 Other long term (current) drug therapy; Z79.82 Long term (current) use of aspirin; Z79.83 Long term (current) use of bisphosphonates; Z90.710 Acquired absence of both cervix and uterus; Z86.73 Personal history of transient ischemic attack (TIA), and cerebral infarction without residual deficits; Z90.49 Acquired absence of other specified parts of digestive tract; Z96.60 Presence of unspecified orthopedic joint implant; Z82.49 Family history of ischemic heart disease and other diseases of the circulatory system; Z82.0 Family history of epilepsy and other diseases of the nervous system; Z82.5 Family history of asthma and other chronic lower respiratory diseases
CPT/HCPCS: 36415; 70450; 70553; 71046; 74176; 76705; 80048; 80053; 80061; 81001; 82550; 82553; 84443; 84484; 85025; 85379; 85610; 85652; 85730; 86140; 87040; 87077; 87086; 87186; 93005; 93306; 93880; 99285

== ENCOUNTER → 2018-02-25 | Outpatient (CLI) | payer OTHER ==
[2018-02-25 12:41] LABS: Basophils # (A) 0.1 k/uL (0-0.2); Basophils % (A) 2 %; Eosinophils # (A) 0.3 k/uL (0-0.7); Eosinophils % (A) 4 %; HCT 47.5 % (34.0-46.0); HGB 15.4 gm/dL (11.4-16.0); Lymphocytes # (A) 0.9 k/uL (1.0-4.8); Lymphocytes % (A) 13 %; MCH 29.5 pg (25.0-35.0); MCHC 32.3 g/dL (31.0-37.0); MCV 91.2 fL (80.0-100.0); Mean Platelet Volume 7.3; Monocytes # (A) 0.4 k/uL (0-1.0); Monocytes % (A) 6 %; Neutrophils % (A) 73 %; Platelet Count 213 k/uL (150-450); RBC 5.21 m/uL (3.80-5.40); RDW 13.5 % (11.5-15.5); WBC 6.8 k/uL (3.8-10.6)
[2018-02-25 12:47] LABS: ALT 100 U/L (9-52); AST 76 U/L (14-36); Albumin 4.5 g/dL (3.5-5.0); Alkaline Phosphatase 83 U/L (38-126); Anion Gap 9 mmol/L; Blood Urea Nitrogen 21 mg/dL (7-17); Calcium 9.7 mg/dL (8.4-10.2); Carbon Dioxide 27 mmol/L (22-30); Chloride 106 mmol/L (98-107); Glucose 132 mg/dL (74-99); Sodium 142 mmol/L (137-145); Total Bilirubin 0.9 mg/dL (0.2-1.3); Total Protein 7.1 g/dL (6.3-8.2)
== END | disposition home or self-care (01) ==
LOC: LABWHC1 11:58
PROVIDERS: ATTEND Hospitalist
DX: G45.9 Transient cerebral ischemic attack, unspecified (principal)
CPT/HCPCS: 36415; 80053; 85025

== ENCOUNTER → 2018-03-05 | Day surgery (SDC) | payer OTHER ==
[2018-03-05 12:18] VITALS: RESP 12; TEMP 98.7
[2018-03-05 13:12] VITALS: BP 118/79; PULSE 84
--- NOTE | 2018-03-05 15:02 | USB ---
EXAMINATION TYPE: US biopsy breast VAD RT, Postprocedure MG diagnostic mammo RT wo CAD DATE OF EXAM: 03/05/2018 CLINICAL HISTORY: 62-year-old female with recurrent with bloody nipple discharge. R92.8 Abnormal Mammo. TECHNIQUE: Ultrasound guided core biopsy of right breast. COMPARISON: 01/08/2018 and 10/08/2017 FINDINGS: The procedure of ultrasound guided core biopsy was explained to the patient. Benefits, alternatives, and risks were discussed. An informed consent was then obtained. The patient was placed in supine positioning for imaging and for the procedure. The overlying skin was prepped and draped in usual sterile fashion. Lidocaine buffered with bicarbonate was used as anesthetic into the skin and subcutaneous tissue up to area of concern in the lateral periareolar right breast. Under ultrasound guidance, a 13-gauge vacuum-assisted mammotome Elite biopsy gun device was used to obtain 7 core samples. Following this, a ribbon clip was left at the site of biopsy. The ectatic ducts with apparent intraductal filling defect was targeted. The patient tolerated the procedure well without any immediate complication. The patient was kept in the radiology department for short stay after the procedure and then discharged home in stable condition. Postprocedure mammogram shows the clip in the 10:00 subareolar position. IMPRESSION: Successful, uncomplicated ultrasound guided core biopsy of possible small intraductal lesion in a patient with history of right-sided bloody nipple discharge. Full pathology results to follow. Pathology Results: High Risk BREAST, RIGHT, NINE O'CLOCK, ULTRASOUND GUIDED CORE BIOPSY: Intraductal papilloma. Background fibrocystic changes including cysts, fibrosis, apocrine metaplasia, adenosis and calcifications. Recommendation Surgical consult of the right breast. LAKESHA
== END ==
LOC: RADUSWWP 11:37
PROVIDERS: ATTEND Surgery
DX: D24.1 Benign neoplasm of right breast (principal); N60.31 Fibrosclerosis of right breast; N60.81 Other benign mammary dysplasias of right breast; N60.21 Fibroadenosis of right breast; R92.1 Mammographic calcification found on diagnostic imaging of breast
CPT/HCPCS: 88305; 77065; 19083; A4648; J2001

== ENCOUNTER → 2018-03-17 | Outpatient (CLI) | payer OTHER ==
--- NOTE | 2018-03-17 21:02 | MR ---
EXAMINATION TYPE: MR MRA/MRV head wo con DATE OF EXAM: 03/17/2018 COMPARISON: Prior MRI brain February 22, 2018 HISTORY: History of hypertension presents with blurry vision and vision loss right eye. TECHNIQUE: Time of flight images focusing on the [place] of [place] were performed without contrast.. 2-D and 3-D postprocessing imaging is performed. MRV imaging of the venous drainage system is perform ed without contrast. FINDINGS: There is dominant right vertebral artery. Vertebral arteries are patent to basilar junction . There is no significant focal stenosis or aneurysmal change in the posterior circulation. There are hypoplastic posterior communicating arteries seen bilaterally. Tortuous course left P1 segment is no kj. Images of the anterior circulation show small caliber patent anterior communicating artery. No signif icant focal stenosis or aneurysmal change is seen. Small caliber inferior sagittal sinus is not well visualized. There is patent superior sagittal sinus as well as inferior cerebral vein and vein of [place] draining into the straight sinus. There are bain nt bilateral drainage transverse sinuses into sigmoid sinuses and subsequent proximal internal jugula r veins. No suspicious signal loss to suggest venous thrombosis is identified. IMPRESSION: 1. No aneurysmal change at level of [place]. 2. No suspicious venous thrombosis in the draining deep cerebral veins
== END | disposition home or self-care (01) ==
LOC: RADMRIMAIN 20:14
PROVIDERS: ATTEND Family Medicine
DX: H54.61 Unqualified visual loss, right eye, normal vision left eye (principal); I10 Essential (primary) hypertension
CPT/HCPCS: 70544

== ENCOUNTER 2018-04-09 09:21 | Day surgery (SDC) | payer OTHER ==
[2018-04-07 09:26] VITALS: BMI 27.4
[~2018-04-09 09:21] MED LIST changes: -HEPARIN SODIUM,PORCINE 5,000 UNIT/ML 1 ML VIAL SQ ONE; +LIDOCAINE 1% 20 ML VIAL (10MG/ML) FOR IV START INTRADERMA PRN; -ceFAZolin IN SWFI 2 GM/20 ML SYRINGE IVP ONE; -fentaNYL (PF) 50 MCG/ML 2 ML AMP IV PRN
[2018-04-09 09:52] VITALS: TEMP 98.4
[2018-04-09] MEDS ORDERED: PROPOFOL 10 MG/ML 20 ML VIAL IV ONE (11:18)
--- NOTE | 2018-04-09 11:27 | P.PCN ---
Date of Procedure: 04/09/18 Procedure(s) Performed: Preoperative Dx: Dysphagia Postoperative Dx: Mild gastritis Procedure: EGD with Bx Anesthesia: Sedation Endoscopist: Dr. Chadwick Specimens: Antrum Endoscopic Procedure: The patient was on the endoscopy table in the left decubitus position. The Olympus gastroscope was inserted into the oropharynx and passed under direct visualization to the region of the third portion of the duodenum. From that point the scope was slowly withdrawn inspecting all surfaces carefully. There were no neoplastic inflammatory or polypoid lesions throughout the duodenum. The pylorus was widely patent. The stomach was carefully inspected. There was gastritis present. A biopsy of the antrum took place to rule out H. pylori. Retroflexion revealed a normal hiatus. The esophagus was then carefully examined. There were no neoplastic inflammatory or polypoid lesions throughout the visualized esophagus. The patient was then taken to the recovery room in stable condition per anesthesia guidelines. Recommendations: Await biopsy results.
[2018-04-09 11:37] VITALS: RESP 18
[2018-04-09 11:54] VITALS: BP 118/74; PULSE 73
== END 2018-04-09 12:15 | disposition home or self-care (01) ==
LOC: ORWHC2ENDO 09:21
PROVIDERS: ATTEND Surgery
DX: K29.50 Unspecified chronic gastritis without bleeding (principal); R13.10 Dysphagia, unspecified; I10 Essential (primary) hypertension; E78.5 Hyperlipidemia, unspecified; J44.9 Chronic obstructive pulmonary disease, unspecified; G47.33 Obstructive sleep apnea (adult) (pediatric); Z72.0 Tobacco use; E07.9 Disorder of thyroid, unspecified; K21.9 Gastro-esophageal reflux disease without esophagitis; F39 Unspecified mood [affective] disorder; M81.0 Age-related osteoporosis without current pathological fracture; F41.9 Anxiety disorder, unspecified; F32.9 Major depressive disorder, single episode, unspecified; Z86.73 Personal history of transient ischemic attack (TIA), and cerebral infarction without residual deficits; Z79.82 Long term (current) use of aspirin; Z79.899 Other long term (current) drug therapy
CPT/HCPCS: 88305; 43239; J2704

== ENCOUNTER → 2018-10-02 | Outpatient (CLI) | payer OTHER ==
--- NOTE | 2018-10-02 10:39 | MM ---
Reason for exam: follow-up at short interval from prior study. Last mammogram was performed 7 months ago. History: Patient is postmenopausal and has history of high-risk lesion on a previous biopsy at age 62. Family history of breast cancer in paternal aunt. High risk US biopsy breast VAD RT of the right breast, March 05, 2018. US discontinued breast bx RT of the right breast, January 13, 2018. Excisional biopsy of the left breast. Physical Findings: Nurse did not find any significant physical abnormalities on exam. MG 3D Diag Mammo W/Cad RT CC, MLO, and LM view(s) were taken of the right breast. Prior study comparison: March 05, 2018, right breast MG diagnostic mammo RT wo CAD. October 08, 2017, bilateral MG 3d screening mammo w/cad. The breast tissue is heterogeneously dense. This may lower the sensitivity of mammography. Benign calcifications in the right breast. Previous mammotome biopsy in the right breast. These results were verbally communicated with the patient and result sheet given to the patient on 10/02/18. ASSESSMENT: Benign, BI-RAD 2 RECOMMENDATION: Return to routine screening mammogram schedule for both breasts. Back on schedule. Manage patient on a clinical basis.
--- NOTE | 2018-10-02 10:42 | USB ---
Reason for exam: follow-up at short interval from prior study. History: Patient is postmenopausal and has history of high-risk lesion on a previous biopsy at age 62. Family history of breast cancer in paternal aunt. High risk US biopsy breast VAD RT of the right breast, March 05, 2018. US discontinued breast bx RT of the right breast, January 13, 2018. Excisional biopsy of the left breast. US Breast RT Right complete breast ultrasound includes all four quadrants, the retroareolar region and axilla. Finding demonstrates a 0.7 x 0.4 x 0.5cm mixed lesion at 3 o'clock new from 02/2018, biopsy recommended, a 0.5 x 0.6 x 0.6cm mixed lesion at 9 o'clock, this was ultrasound biopsied with a intraductal papilloma pathology result, consider re-biopsy with open as some percentage will upgrade to neoplasm and a 0.2 x 0.2 x 0.2cm lesion too small to characterize at 10 o'clock. These results were verbally communicated with the patient and result sheet given to the patient on 10/02/18. ASSESSMENT: Suspicious, BI-RAD 4 RECOMMENDATION: Ultrasound core biopsy of the right breast. (3 o'clock) Ultrasound core biopsy of the right breast. (9 o'clock) Called with mammographic findings and has scheduled an appointment for the patient for 10/30/18 at 10:[address] Chadwick. Biopsy scheduled for 10/17/18 at 11:30. PRELIMINARY REPORT CALLED AND FAXED TO DR. CHADWICK ON 10/02/18.
== END ==
LOC: RADMAMWWP 07:40
PROVIDERS: ATTEND Surgery
DX: N64.52 Nipple discharge (principal)
CPT/HCPCS: 77065; 76641; G0279; 77061

== ENCOUNTER → 2018-10-17 | Day surgery (SDC) | payer OTHER ==
[2018-10-17 10:56] VITALS: BP 148/102; PULSE 99; RESP 16; TEMP 98.6; BMI 29.2
--- NOTE | 2018-10-17 12:50 | USB ---
EXAMINATION TYPE: US discontinued breast core RT DATE OF EXAM: 10/17/2018 COMPARISON: 10/02/2018 ultrasound HISTORY: Abnormal ultrasound results TECHNIQUE: Real-time linear array sonography is performed over the right breast. FINDINGS: 2 separate ultrasound technologists and the radiologist scanned on the 3:00 position. The a bnormality previously identified could not be reproduced at this time. Precautionary six-month follow -up is recommended. The 9:00 position is a site of prior papilloma pathology results from a core biopsy. The results and options were discussed with the surgeon by telephone. Careful monitoring by ultrasound will be perfor med. Follow-up ultrasound of the 9:00 position could also be performed in 6 months. Suspicious ultras ound findings are not evident at this time. Benign-appearing ducts were present. IMPRESSION: 1. Ultrasound-guided core biopsy terminated prior to skin incision. 2. Probably benign findings, BI-RADS 3 Recommendations: 1. Ultrasound entire right breast 6 months. 2. Patient should continue monthly self breast exam. 3. Screening mammography should be performed on schedule. 4. Negative ultrasound should not preclude biopsy of suspicious palpable abnormalities.
== END ==
LOC: RADUSWWP 10:26
PROVIDERS: ATTEND Surgery
DX: R92.8 Other abnormal and inconclusive findings on diagnostic imaging of breast (principal)

== ENCOUNTER 2018-11-12 07:22 | Day surgery (SDC) | payer OTHER ==
[2018-11-10 09:03] VITALS: BMI 28.5
[~2018-11-12 07:22] MED LIST changes: +DEXAMETHASONE SOD PHOSPHATE 10 MG/ML 1 ML VIAL IV ONE; +HEPARIN SODIUM,PORCINE 5,000 UNIT/ML 1 ML VIAL SQ ONE; +MIDAZOLAM 2 MG/2 ML VIAL IV PRN; +Pre Op ABX Message 1 EACH MISC MISCELLANE ONE; +fentaNYL (PF) 50 MCG/ML 2 ML AMP IV PRN
[2018-11-12 08:03] VITALS: RESP 16
[2018-11-12] MEDS ORDERED: SCOPOLAMINE 1.5MG/72HR PATCH TRANSDERM ONE (08:03)
[2018-11-12] MEDS ORDERED: ALPRAZolam 0.5 MG TAB PO ONE (08:03)
[2018-11-12 08:14] LABS: Glucose,Whole Blood 100 mg/dL (75-99)
[2018-11-12] MEDS ORDERED: LIDOCAINE 1% INJ 10MG/ML (20 ML MDV) SQ ONE (08:40)
[2018-11-12] MEDS ORDERED: SODIUM BICARB 4% 5 ML VIAL (0.48 MEQ/ML) MISCELLANE ONE (08:40)
[2018-11-12] MEDS ORDERED: ONDANSETRON 4 MG/2 ML VIAL IVP ONE (09:01)
[2018-11-12] MEDS ORDERED: PROPOFOL 10 MG/ML 20 ML VIAL IV ONE (09:25)
[2018-11-12] MEDS ORDERED: fentaNYL (PF) 50 MCG/ML 2 ML AMP ONE (09:25)
[2018-11-12] MEDS ORDERED: LIDOCAINE 1% INJ 10MG/ML (20 ML MDV) ONE (09:25)
[2018-11-12] MEDS ORDERED: KETOROLAC 30 MG/ML 1 ML VIAL ONE (09:25)
[2018-11-12] MEDS ORDERED: MIDAZOLAM 2 MG/2 ML VIAL ONE (09:25)
[2018-11-12] MEDS ORDERED: SODIUM CHLORIDE 0.9% 50 ML with ceFAZolin 2,000 MG IV ONE ×2 (09:42)
[2018-11-12] MEDS ORDERED: BUPIVACAINE-EPI 0.5%-1:200,000 10 ML VIAL SQ ONE (09:54)
[2018-11-12 10:27] VITALS: TEMP 97.3
[2018-11-12] MEDS ORDERED: HYDROcodone/APAP 5-325MG 1 EACH TAB PO PRN (10:37)
[2018-11-12] MEDS ORDERED: NALOXONE 0.4 MG/ML 1 ML VIAL IV PRN (10:37)
--- NOTE | 2018-11-12 10:39 | P.OP ---
Date of Procedure: 11/12/18 Procedure(s) Performed: PREOPERATIVE DIAGNOSIS: Abnormal right mammogram POSTOPERATIVE DIAGNOSIS: Same PROCEDURE: Right Breast wire localization biopsy SURGEON: Netta EBL: Minimal ANESTHESIA: Sedation plus local COMPLICATIONS: None OPERATIVE PROCEDURE: Patient was placed on the operating room table in the s upine position. The patient's breast was prepped and draped in usual sterile fashion. A curvilinear incision was made adjacent to the Juan Carlos. I followed the wire down into the breast tissue. The breast tissue around the tip of the wire was fully excised using electrocautery. The specimen was sent for specimen radiogram. The clip was present within the specimen. The subcutaneous tissues were inspected. No bleeding was seen. The subcutaneous tissues were closed using 3-0 Vicryl sutures. The skin was closed using a running 4-0 Monocryl stitch. Skin glue was then were applied. DISPOSITION: Stable to recovery room
[2018-11-12 11:39] VITALS: BP 122/86; PULSE 78
--- NOTE | 2018-11-12 11:58 | MM ---
EXAMINATION TYPE: MG pre op needle loc RT DATE OF EXAM: 11/12/2018 COMPARISON: NONE CLINICAL HISTORY: Abnormal mammogram TECHNIQUE: Needle localization with wire placement and surgical excision of area of concern in the formerly [facility]. FINDINGS: The procedure of needle localization with wire placement and than surgical excision was exp lained to the patient. Benefits, alternatives, and risks were discussed. An informed consent was th en obtained. The shortest pathway for procedure was chosen. Shortest pathway was lateral approach. The overlying skin was prepped and draped in usual sterile fashion. Lidocaine buffered with bicarbonate was used a s anesthetic into the skin and subcutaneous tissue up to the level of area of concern. A 5 cm needle was used. It was placed via a lateral approach under mammographic guidance. Subsequent 90 degrees mammogram show the needle to be in satisfactory position relative to the targeted area. At this poin t, wire was placed and the needle was withdrawn. The wire was fixed to patient's skin. Images were marked for surgeon. The patient tolerated the procedure well without any immediate complication. The patient was kept in the radiology department for short stay after the procedure and then taken to surgery for surgical e xcision. Surgical clip and wire are identified in specimen mammogram. The patient was kept in hospit al for short stay after the procedure and then discharged home in stable condition. IMPRESSION: Successful, uncomplicated needle localization with wire placement and surgical excision o f surgical clip in the right breast, full pathology results to follow.
== END 2018-11-12 12:00 | disposition home or self-care (01) ==
LOC: OR 07:22
PROVIDERS: ATTEND Surgery
DX: D24.1 Benign neoplasm of right breast (principal); N60.11 Diffuse cystic mastopathy of right breast; I10 Essential (primary) hypertension; E07.9 Disorder of thyroid, unspecified; F17.200 Nicotine dependence, unspecified, uncomplicated; J44.9 Chronic obstructive pulmonary disease, unspecified; F41.9 Anxiety disorder, unspecified; F32.9 Major depressive disorder, single episode, unspecified; Z79.52 Long term (current) use of systemic steroids; Z96.60 Presence of unspecified orthopedic joint implant; Z79.899 Other long term (current) drug therapy; Z79.82 Long term (current) use of aspirin
CPT/HCPCS: 88307; 76098; 19281; 19125; J2250; J1644; J1100; J2405; J0690; J2001; J3010; J1885; J2704

== ENCOUNTER → 2018-12-19 | Outpatient (CLI) | payer OTHER ==
--- NOTE | 2018-12-19 09:32 | MM ---
Reason for exam: follow-up at short interval from prior study. Last mammogram was performed 3 months ago. History: Patient is postmenopausal and has history of high-risk lesion on a previous biopsy at age 62. Family history of breast cancer in paternal aunt. Benign MG pre op needle loc RT of the right breast, November 12, 2018. US discontinued breast core RT of the right breast, October 17, 2018. High risk US biopsy breast VAD RT of the right breast, March 05, 2018. US discontinued breast bx RT of the right breast, January 13, 2018. Excisional biopsy of the left breast. Physical Findings: Nurse did not find any significant physical abnormalities on exam. MG 3D Diag Mammo W/Cad LT CC, MLO, and LM view(s) were taken of the left breast. Prior study comparison: October 02, 2018, right breast MG 3d diag mammo w/cad RT. March 05, 2018, right breast MG diagnostic mammo RT wo CAD. The breast tissue is heterogeneously dense. This may lower the sensitivity of mammography. 6mm circumscribed nodular asymmetry possibly at 6 o'clock is slightly more full from 2015. Finding may represent a benign cyst. 6 month follow up recommended. Not clearly seen on CC or lateral. These results were verbally communicated with the patient and result sheet given to the patient on 12/19/18. ASSESSMENT: Probably benign, BI-RAD 3 RECOMMENDATION: Follow-up diagnostic mammogram of both breasts in 6 months. (right: 6 month follow up post excision) (left: 6 month follow up)
== END | disposition home or self-care (01) ==
LOC: RADMAMWWP 08:25
PROVIDERS: ATTEND Surgery
DX: R92.8 Other abnormal and inconclusive findings on diagnostic imaging of breast (principal)
CPT/HCPCS: 77065; G0279; 77061

== ENCOUNTER → 2019-05-22 | Outpatient (CLI) | payer MEDICARE, OTHER ==
--- NOTE | 2019-05-22 11:35 | MM ---
Reason for exam: screening (asymptomatic). Last mammogram was performed 5 months ago. History: Patient is postmenopausal and has history of high-risk lesion on a previous biopsy at age 62. Family history of breast cancer in paternal aunt. Benign MG pre op needle loc RT of the right breast, November 12, 2018. US discontinued breast core RT of the right breast, October 17, 2018. High risk US biopsy breast VAD RT of the right breast, March 05, 2018. US discontinued breast bx RT of the right breast, January 13, 2018. Excisional biopsy of the left breast. Physical Findings: A clinical breast exam by your physician is recommended on an annual basis and results should be correlated with mammographic findings. MG 3D Diag Mammo W/Cad GILMAR Bilateral CC and MLO view(s) were taken. XCCL view(s) were taken of the right breast. Prior study comparison: December 19, 2018, left breast MG 3d diag mammo w/cad LT. October 02, 2018, right breast MG 3d diag mammo w/cad RT. The breast tissue is heterogeneously dense. This may lower the sensitivity of mammography. There are benign appearing round calcifications bilaterally. There is no discrete abnormality. These results were verbally communicated with the patient and result sheet given to the patient on 05/22/19. ASSESSMENT: Benign, BI-RAD 2 RECOMMENDATION: Routine screening mammogram of both breasts in 1 year.
== END | disposition home or self-care (01) ==
LOC: RADMAMWWP 10:31
PROVIDERS: ATTEND Surgery
DX: R92.8 Other abnormal and inconclusive findings on diagnostic imaging of breast (principal)
CPT/HCPCS: 77062; 77066

== ENCOUNTER → 2019-05-22 | Outpatient (CLI) | payer MEDICARE, OTHER ==
--- NOTE | 2019-05-22 12:26 | CTL ---
EXAMINATION TYPE: CT Low Dose Lung DATE OF EXAM ORDERED: 05/22/2019 COMPARISON: 10/08/17 HISTORY: . Low Dose CT Lung Screening CT DLP: 80.[address] CTDI: 2.4 mGy IV CONTRAST USED: None. SCREENING VISIT: First visit COMPARISON: None. TECHNIQUE: Low dose computed tomography scan was performed through the chest at 1 millimeter thick se ctions and reconstructed images in the coronal plane at [address] DIAGNOSTIC QUALITY: Satisfactory FINDINGS: LUNG NODULES: Not presentLeft lung: no nodules identified.Right lung: no nodules identified. LUNGS: COPD: Severity: Minimal centrilobular emphysema. Fibrosis: Severity:None Lymph nodes: None Other findings: None RIGHT PLEURAL SPACE: Effusion: None Calcification: None Thickening: None Pneumothorax: None LEFT PLEURAL SPACE: Effusion: None Calcification: None Thickening: None Pneumothorax: None HEART: Heart Size: Mildly enlarged Coronary calcification: Mild Pericardial effusion: None OTHER FINDINGS: Upper abdomen: No significant abnormality Bony thorax: Degenerative changes Supraclavicular region: No significant abnormalityOther: No significant abnormalityI IMPRESSION: Negative FOLLOW UP CT CHEST RECOMMENDATION: Follow-up screening in one year. Smoking cessation advised. CT LUNG RAD: LUNG RAD CATEGORY 1 negative
== END ==
LOC: RADCTMAIN 11:27
PROVIDERS: ATTEND Family Medicine
DX: Z12.2 Encounter for screening for malignant neoplasm of respiratory organs (principal); F17.210 Nicotine dependence, cigarettes, uncomplicated

== ENCOUNTER → 2019-05-28 | Outpatient (CLI) | payer MEDICARE, OTHER ==
--- NOTE | 2019-05-29 10:01 | BD ---
EXAMINATION TYPE: Axial Bone Density DATE OF EXAM: 05/28/2019 COMPARISON: 04.25.2016 CLINICAL HISTORY: 63 YR OLD FEMALE...ICD-10 CODE: M85.8 DISORDER OF BONE Height: 63 Weight: 174 FRAX RISK QUESTIONS: Family History (Parent hip fracture): NO FX Glucocorticoids (More than 3mos): YES (Ex: prednisone, prednisolone, methylprednisolone, dexamethasone, and hydrocortisone). Current Tobacco Use: YES RISK FACTORS HISTORY OF: Surgery to Spine REMOVAL OF DISC ONLY IN LUMBAR SPINE, FUSION OF CERVICAL SPINE, 3-8 YRS AGO Family History of Osteoporosis: YES, HER MOTHER NO HIP FX Diet low in dairy products/other sources of calcium: YES Postmenopausal woman: YES AT ABOUT 54 YRS OLD Lost more than 2 inches in height since high school: YES Hyperparathyroidism: NO Adrenal Insufficiency: NO MEDICATIONS: Prednisone or other steroids: YES, ON AND OFF WITH ILLNESS AND PAIN Additional Medications: BP MEDS, CELEXA, Additional History: HYPERTENSION, ANXIETY EXAM MEASUREMENTS: Bone mineral densitometry was performed using the [employer] Interactive System. Bone mineral density as measured about the Lumbar spine is: ----- L1-L4(G/cm2): 1.142 T Score Values are as follows: ----- L1: 0.5 ----- L2: -1.6 ----- L3: -0.4 ----- L4: 0.1 ----- L1-L4: -0.3 Bone mineral density has: Decreased -7.3% since study of: 09.16.2002 SPINE NOT SCANNED IN 2016? Bone mineral density about the R hip (g/cm2): 0.833 Bone mineral density about the L hip (g/cm2): 0.885 T Score values are as follows: -----R Neck: -2.0 -----L Neck: -1.5 -----R Total: -1.4 -----L Total: -1.0 Bone mineral density has: Increased 7.5% since study of: 04.25.2016 FRAX%s: THERE IS A 15.7% CHANCE FOR A MAJOR OSTEOPOROTIC FX.....AND A 3.8% FOR HIP.....PROBABILITY FOR FX IN 10 YRS TIME IMPRESSION: Osteopenia (T Score between -2.5 and -1). There is slightly increased risk of fracture and the patient may be considered for treatment. Re-Screen 2-5 years. NOTE: T-SCORE=SD OF THE YOUNG ADULT MEAN.
== END | disposition home or self-care (01) ==
LOC: RADBDWWP 16:24
PROVIDERS: ATTEND Family Medicine
DX: M85.80 Other specified disorders of bone density and structure, unspecified site (principal)
CPT/HCPCS: 77080

== ENCOUNTER → 2019-07-01 | Outpatient (CLI) | payer MEDICARE, OTHER ==
--- NOTE | 2019-07-01 16:49 | US ---
EXAMINATION TYPE: US abdomen complete DATE OF EXAM: 07/01/2019 COMPARISON: 02/22/2018 CLINICAL HISTORY: R10.811 Right Upper Quad abdomen tenderness. Intermittent RUQ tightness, cholecyste ctomy EXAM MEASUREMENTS: Liver Length: 17.2 cm Gallbladder Wall: Surgically absent CBD: 0.7 cm Spleen: 10.2 cm Right Kidney: 10.0 x 3.8 x 4.4 cm Left Kidney: 11.4 x 5.6 x 4.7 cm Pancreas: Tail obscured by overlying bowel gas Liver: attenuating, heterogeneous, hypoechoic area of focal sparing = 4.7 x 2.3 x 3.1cm Gallbladder: Surgically absent Evidence for sonographic John's sign: no CBD: wnl Spleen: wnl Right Kidney: no evidence of hydronephrosis Left Kidney: hyperechoic area mid = 0.6cm Upper IVC: wnl Abd Aorta: distal and bifurcation obscured by overlying bowel content COMPARISON: CT 02/22/2018. The abnormality within the liver is not identified on prior CT. No suspiciou s abnormality is identified on the noncontrast images through the left kidney. Additional workup is r ecommended. IMPRESSION: 1. Ill-defined central hypoechoic area near the hepatic hilum. Additional workup with contrast CT is recommended. 2. Echogenic foci within the mid left kidney cortex without shadowing. This could be further evaluate d with the CT examination.
== END | disposition home or self-care (01) ==
LOC: RADUSWWP 07:39
PROVIDERS: ATTEND Family Medicine
DX: R93.422 Abnormal radiologic findings on diagnostic imaging of left kidney (principal); R93.2 Abnormal findings on diagnostic imaging of liver and biliary tract
CPT/HCPCS: 76700

== ENCOUNTER → 2019-07-08 | Outpatient (CLI) | payer MEDICARE, OTHER ==
--- NOTE | 2019-07-08 14:43 | CT ---
EXAMINATION TYPE: CT abdomen w con DATE OF EXAM: 07/08/2019 HISTORY: RUQ pain and tenderness CT DLP: 758.2mGycm Automated Exposure Control for Dose Reduction was Utilized. CONTRAST: CT scan of the abdomen is performed with IV Contrast, patient injected with 100 mL of Isovue 300. COMPARISON: CT abdomen and pelvis February 22, 2018 and older studies FINDINGS: LUNG BASES: No significant abnormality is appreciated. LIVER/GB: Multiple cholecystectomy clips redemonstrated. PANCREAS: No significant abnormality is seen. SPLEEN: No significant abnormality is seen. ADRENALS: No significant abnormality is seen. KIDNEYS: No significant abnormality is seen. BOWEL: Oral contrast reaches level of cecum and normal-appearing appendix noted coronal image 35. No suspicious small or large bowel dilatation. Mild wall thickening in the transverse colon is favored p roduct of poor distention. LYMPH NODES: No greater than 1cm abdominal lymph nodes are appreciated. OSSEOUS STRUCTURES: Transitional type L5 vertebra which is sacralized bilaterally redemonstrated mode rate disc space narrowing and vacuum disc phenomenon right L4-L5 level. OTHER: No significant additional abnormality is seen. IMPRESSION: No significant new or acute finding is seen to account for patient's clinical symptoms.
== END | disposition home or self-care (01) ==
LOC: RADCTMAIN 12:56
PROVIDERS: ATTEND Family Medicine
DX: R93.5 Abnormal findings on diagnostic imaging of other abdominal regions, including retroperitoneum (principal)
CPT/HCPCS: 74160; Q9967

== ENCOUNTER 2019-08-08 18:12 | Emergency (ER) | payer MEDICARE, OTHER ==
[2019-08-08] MEDS ORDERED: SODIUM CHLORIDE 0.9% 1,000 ML IV STA (18:46)
[2019-08-08] MEDS ORDERED: IPRATROPIUM-ALBUTEROL 3 ML NEB INHALATION STA (18:46)
--- NOTE | 2019-08-08 18:46 | ED ---
SOB HPI - General Chief Complaint: Shortness of Breath Stated Complaint: SOB Time Seen by Provider: 08/08/19 18:29 Source: patient, RN notes reviewed, old records reviewed Mode of arrival: ambulatory Limitations: no limitations - History of Present Illness MD Complaint: shortness of breath, cough, anxiety (headache) -: days(s) Radiation: left arm (paresthesia,HO neck Sx) Severity: moderate Improves With: nothing Worsens With: nothing Known History Of: COPD Context: recent URI Associated Symptoms: chest pain, cough, parasthesias Treatments Prior to Arrival: none - Related Data Home Medications Medication Instructions Recorded Confirmed Losartan Potassium 100 mg PO DAILY 07/11/17 08/08/19 Hydrochlorothiazide 12.5 mg PO DAILY 10/09/17 08/08/19 Allergies Allergy/AdvReac Type Severity Reaction Status Date / Time No Known Allergies Allergy Verified 08/08/19 20:12 Review of Systems ROS Statement: Those systems with pertinent positive or pertinent negative responses have been documented in the HPI. ROS Other: All systems not noted in ROS Statement are negative. Past Medical History Past Medical History: COPD, CVA/TIA, Hypertension, Neurologic Disorder, Sleep Apnea/CPAP/BIPAP, Thyroid Disorder Additional Past Medical History / Comment(s): has had bloody discharge from rt nipple, Current bronchitis on antibiotics, states has "canker sore" on tongue, STates no residual effects from TIA, back pain, osteoporosis: patient states her hip bones are deteriorating bilaterally this, has burning numbness and tingling from hips to feet bilaterally. "thickening of esophagus". History of Any Multi-Drug Resistant Organisms: None Reported Past Surgical History: Adenoidectomy, Section, Cholecystectomy, Hysterectomy, Orthopedic Surgery, Tonsillectomy Additional Past Surgical History / Comment(s): Rt breast bx, x4, disc fusions in the neck (c4-C7) and back Moreno bunionectomy, moreno cataract surgery, rt shoulder surgery, left breast bx at age 16 (findings benign) Past Anesthesia/Blood Transfusion Reactions: Postoperative Nausea & Vomiting (PONV) Additional Past Anesthesia/Blood Transfusion Reaction / Comment(s): No blood transfusion to date Past Psychological History: Anxiety, Depression, PTSD Smoking Status: Current every day smoker Past Alcohol Use History: None Reported Past Drug Use History: None Reported - Past Family History Father Family Medical History: Dementia, Hypertension, Neurologic Disorder Additional Family Medical History / Comment(s): Parkinson's Son(s) Family Medical History: Asthma Mother Additional Family Medical History / Comment(s): TIA. General Exam Limitations: no limitations General appearance: alert, in no apparent distress Head exam: Present: atraumatic, normocephalic, normal inspection Eye exam: Present: normal appearance, PERRL, EOMI. Absent: scleral icterus, conjunctival injection, periorbital swelling ENT exam: Present: normal exam, mucous membranes moist Neck exam: Present: normal inspection. Absent: tenderness, meningismus, lymphadenopathy Respiratory exam: Absent: respiratory distress, wheezes, rales, rhonchi, stridor Cardiovascular Exam: Present: regular rate, normal rhythm, tachycardia, normal heart sounds. Absent: systolic murmur, diastolic murmur, rubs, gallop, clicks GI/Abdominal exam: Present: soft, normal bowel sounds. Absent: distended, tenderness, guarding, rebound, rigid Extremities exam: Present: normal inspection, full ROM, normal capillary refill. Absent: tenderness, pedal edema, joint swelling, calf tenderness Back exam: Present: normal inspection Neurological exam: Present: alert, oriented X3, CN II-XII intact Psychiatric exam: Present: normal affect, normal mood Skin exam: Present: warm, dry, intact, normal color. Absent: rash Course Vital Signs 08/08/19 08/08/19 08/08/19 18:13 19:25 19:28 Temperature 97.9 F Pulse Rate 105 H 80 80 Respiratory 20 19 Rate Blood Pressure 225/129 168/106 O2 Sat by Pulse 96 99 Oximetry 08/08/19 19:40 Temperature Pulse Rate 74 Respiratory Rate Blood Pressure O2 Sat by Pulse Oximetry Medical Decision Making - Lab Data Result diagrams: 08/08/19 18:38 08/08/19 18:38 Lab Results 08/08/19 08/08/19 08/08/19 Range/Units 18:38 18:38 18:38 WBC 5.5 (3.8-10.6) k/uL RBC 4.94 (3.80-5.40) m/uL Hgb 14.8 (11.4-16.0) gm/dL Hct 44.2 (34.0-46.0) % MCV 89.4 (80.0-100.0) fL MCH 30.0 (25.0-35.0) pg MCHC 33.6 (31.0-37.0) g/dL RDW 12.9 (11.5-15.5) % Plt Count 218 (150-450) k/uL Neutrophils % 70 % Lymphocytes % 18 % Monocytes % 5 % Eosinophils % 4 % Basophils % 1 % Neutrophils # 3.8 (1.3-7.7) k/uL Lymphocytes # 1.0 (1.0-4.8) k/uL Monocytes # 0.3 (0-1.0) k/uL Eosinophils # 0.2 (0-0.7) k/uL Basophils # 0.1 (0-0.2) k/uL PT (9.0-12.0) sec INR (<1.2) APTT (22.0-30.0) sec Sodium 140 (137-145) mmol/L Potassium 3.8 (3.5-5.1) mmol/L Chloride 110 H (98-107) mmol/L Carbon Dioxide 24 (22-30) mmol/L Anion Gap 6 mmol/L BUN 17 (7-17) mg/dL Creatinine 0.72 (0.52-1.04) mg/dL Est GFR (CKD-EPI)AfAm >90 (>60 ml/min/1.73 sqM) Est GFR (CKD-EPI)NonAf >90 (>60 ml/min/1.73 sqM) Glucose 132 H (74-99) mg/dL Calcium 9.2 (8.4-10.2) mg/dL Magnesium 1.9 (1.6-2.3) mg/dL Total Bilirubin 0.6 (0.2-1.3) mg/dL AST 26 (14-36) U/L ALT 26 (4-34) U/L Alkaline Phosphatase 78 (38-126) U/L Troponin I (0.000-0.034) ng/mL NT-Pro-B Natriuret Pep 265 pg/mL Total Protein 6.3 (6.3-8.2) g/dL Albumin 3.9 (3.5-5.0) g/dL 08/08/19 08/08/19 Range/Units 18:38 18:38 WBC (3.8-10.6) k/uL RBC (3.80-5.40) m/uL Hgb (11.4-16.0) gm/dL Hct (34.0-46.0) % MCV (80.0-100.0) fL MCH (25.0-35.0) pg MCHC (31.0-37.0) g/dL RDW (11.5-15.5) % Plt Count (150-450) k/uL Neutrophils % % Lymphocytes % % Monocytes % % Eosinophils % % Basophils % % Neutrophils # (1.3-7.7) k/uL Lymphocytes # (1.0-4.8) k/uL Monocytes # (0-1.0) k/uL Eosinophils # (0-0.7) k/uL Basophils # (0-0.2) k/uL PT 9.5 (9.0-12.0) sec INR 0.9 (<1.2) APTT 22.6 (22.0-30.0) sec Sodium (137-145) mmol/L Potassium (3.5-5.1) mmol/L Chloride (98-107) mmol/L Carbon Dioxide (22-30) mmol/L Anion Gap mmol/L BUN (7-17) mg/dL Creatinine (0.52-1.04) mg/dL Est GFR (CKD-EPI)AfAm (>60 ml/min/1.73 sqM) Est GFR (CKD-EPI)NonAf (>60 ml/min/1.73 sqM) Glucose (74-99) mg/dL Calcium (8.4-10.2) mg/dL Magnesium (1.6-2.3) mg/dL Total Bilirubin (0.2-1.3) mg/dL AST (14-36) U/L ALT (4-34) U/L Alkaline Phosphatase (38-126) U/L Troponin I <0.012 (0.000-0.034) ng/mL NT-Pro-B Natriuret Pep pg/mL Total Protein (6.3-8.2) g/dL Albumin (3.5-5.0) g/dL - EKG Data -: EKG Interpreted by Me (EKG shows sinus rhythm rate of 85, AR 142, QRS 78, QTC 449) Disposition Clinical Impression: Hypertension, Headache, Chest pain Disposition: HOME SELF-CARE Condition: Good Instructions (If sedation given, give patient instructions): Chest Pain (ED), Tension Headache (ED) Is patient prescribed a controlled substance at d/c from ED?: No Referrals: Carmelita Chadwick MD [Primary Care Provider] - 1-2 days
[2019-08-08 18:55] LABS: Basophils # (A) 0.1 k/uL (0-0.2); Basophils % (A) 1 %; Eosinophils # (A) 0.2 k/uL (0-0.7); Eosinophils % (A) 4 %; HCT 44.2 % (34.0-46.0); HGB 14.8 gm/dL (11.4-16.0); Lymphocytes % (A) 18 %; MCHC 33.6 g/dL (31.0-37.0); MCV 89.4 fL (80.0-100.0); Monocytes # (A) 0.3 k/uL (0-1.0); Monocytes % (A) 5 %; Neutrophils # (A) 3.8 k/uL (1.3-7.7); Neutrophils % (A) 70 %; Platelet Count 218 k/uL (150-450); RBC 4.94 m/uL (3.80-5.40); RDW 12.9 % (11.5-15.5); WBC 5.5 k/uL (3.8-10.6)
[2019-08-08 19:05] LABS: ALT 26 U/L (4-34); AST 26 U/L (14-36); African American GFR (CKD) >90 (>60 ml/min/1.73 sqM); Albumin 3.9 g/dL (3.5-5.0); Alkaline Phosphatase 78 U/L (38-126); Anion Gap 6 mmol/L; Blood Urea Nitrogen 17 mg/dL (7-17); Calcium 9.2 mg/dL (8.4-10.2); Carbon Dioxide 24 mmol/L (22-30); Chloride 110 mmol/L (98-107); Glucose 132 mg/dL (74-99); Magnesium 1.9 mg/dL (1.6-2.3); Non-African American GFR(CKD) >90 (>60 ml/min/1.73 sqM); Potassium 3.8 mmol/L (3.5-5.1); Sodium 140 mmol/L (137-145); Total Bilirubin 0.6 mg/dL (0.2-1.3); Total Protein 6.3 g/dL (6.3-8.2)
[2019-08-08 19:06] LABS: INR 0.9 (<1.2); Partial Thromboplastin Time 22.6 sec (22.0-30.0); Prothrombin Time 9.5 sec (9.0-12.0)
--- NOTE | 2019-08-08 19:12 | XR ---
EXAMINATION TYPE: XR chest 2V DATE OF EXAM: 08/08/2019 COMPARISON: 02/20/2018 HISTORY: Short of breath TECHNIQUE: FINDINGS: There is some linear density right midlung. Left lung is clear. There is no heart failure. Heart size is normal. There is no pleural effusion. IMPRESSION: Right middle lobe mild atelectasis appears new compared to last exam. Normal heart.
--- NOTE | 2019-08-08 19:19 | CT ---
EXAMINATION TYPE: CT brain wo con DATE OF EXAM: 08/08/2019 COMPARISON: February 20, 2018 HISTORY: CRANDALL CT DLP: 1084.4 mGycm Automated exposure control for dose reduction was used. Ventricles have normal size. There is no mass effect nor midline shift. There is no sign of intracran ial hemorrhage. The calvarium is intact. There is no evidence of cerebral edema. IMPRESSION: Normal unenhanced head CT scan. No change.
[2019-08-08] MEDS ORDERED: KETOROLAC 30 MG/ML 1 ML VIAL IVP STA (19:53)
[2019-08-08] MEDS ORDERED: PROCHLORPERAZINE 10 MG TAB PO STA (19:53)
[2019-08-08] MEDS ORDERED: MORPHINE SULFATE 4 MG/ML SYRINGE IVP STA (20:14)
[2019-08-08] MEDS ORDERED: LABETALOL 5 MG/ML VIAL MDV IVP STA (20:14)
[2019-08-08 20:50] VITALS: BP 147/91; PULSE 71; RESP 18; TEMP 98
== END 2019-08-08 20:50 | disposition home or self-care (01) ==
LOC: EC 18:12
DX: I10 Essential (primary) hypertension (principal); R07.9 Chest pain, unspecified; R51 Headache; R00.0 Tachycardia, unspecified; J40 Bronchitis, not specified as acute or chronic; F41.9 Anxiety disorder, unspecified; R20.2 Paresthesia of skin; Z82.49 Family history of ischemic heart disease and other diseases of the circulatory system; F17.200 Nicotine dependence, unspecified, uncomplicated; Z79.899 Other long term (current) drug therapy; Z90.89 Acquired absence of other organs; Z53.20 Procedure and treatment not carried out because of patient's decision for unspecified reasons
CPT/HCPCS: 99285; 96374; 96375; 96361; 36415; 94640; 93005; 83880; 80053; 83735; 84484; 85025; 85610; 85730; 71046; 70450; S0183; J1885

== ENCOUNTER → 2019-08-13 | Outpatient (CLI) | payer MEDICARE, OTHER ==
--- NOTE | 2019-08-13 20:13 | ECHOF ---
Referral Reason:I10 Hypertension MEASUREMENTS -------- HEIGHT: 162.6 cm WEIGHT: 81.6 kg BP: IVSd: 1.3 cm (0.6 - 1.1) LVIDd: 3.5 cm (3.9 - 5.3) LVPWd: 1.5 cm (0.6 - 1.1) IVSs: 1.6 cm LVIDs: 2.4 cm LVPWs: 1.8 cm RVIDd: 2.7 cm (< 3.3) LAESV Index (A-L): 11.85 ml/m Ao Diam: 2.9 cm (2.0 - 3.7) AV Cusp: 2.2 cm (1.5 - 2.6) EPSS: 0.5 cm MV E Apollo: 0.62 m/s MV DecT: 226 ms MV A Apollo: 0.89 m/s MV E/A Ratio: 0.71 AR PHT: 542 ms RAP: 5.00 mmHg RVSP: 23.99 mmHg MV EF SLOPE: 37.61 mm/s (70 - 150) MV EXCURSION: 15.49 mm (> 18.000) FINDINGS -------- Sinus rhythm. This was a technically adequate study. The left ventricular size is normal. There is moderate concentric left ventricular hypertrophy. O verall left ventricular systolic function is normal with, an EF between 55 - 60 %. The diastolic fi lling pattern is normal for the age of the patient 8.92. The right ventricle is normal in size. Normal LA size by volume 22+/-6 ml/m2. The right atrial size is normal. Interatrial and interventricular septum intact. There is mild aortic regurgitation. There is no evidence of aortic stenosis. There is trace mitral regurgitation. Mild tricuspid regurgitation present. There is no evidence of pulmonary hypertension. The right v entricular systolic pressure, as measured by Doppler, is 23.99mmHg. There is no pulmonic regurgitation present. The aortic root size is normal. Normal inferior vena cava with normal inspiratory collapse consistent with estimated right atrial pre ssure of 5 mmHg. There is no pericardial effusion. CONCLUSIONS -------- 1. Sinus rhythm. 2. This was a technically adequate study. 3. The left ventricular size is normal. 4. There is moderate concentric left ventricular hypertrophy. 5. Overall left ventricular systolic function is normal with, an EF between 55 - 60 %. 6. The diastolic filling pattern is normal for the age of the patient 8.92 7. The right ventricle is normal in size. 8. Normal LA size by volume 22+/-6 ml/m2. 9. The right atrial size is normal. 10. Interatrial and interventricular septum intact. 11. There is mild aortic regurgitation. 12. There is no evidence of aortic stenosis. 13. There is trace mitral regurgitation. 14. Mild tricuspid regurgitation present. 15. There is no evidence of pulmonary hypertension. 16. The right ventricular systolic pressure, as measured by Doppler, is 23.99mmHg. 17. There is no pulmonic regurgitation present. 18. The aortic root size is normal. 19. Normal inferior vena cava with normal inspiratory collapse consistent with estimated right atrial pressure of 5 mmHg. 20. There is no pericardial effusion. ADMINISTRATIVE COORDINATOR: Page Truong RDCS
== END | disposition home or self-care (01) ==
LOC: RADECHMAIN 12:49
PROVIDERS: ATTEND Nurse Practitioner Family
DX: I08.2 Rheumatic disorders of both aortic and tricuspid valves (principal); I10 Essential (primary) hypertension
CPT/HCPCS: 93306

== ENCOUNTER → 2019-08-24 | Outpatient (CLI) | payer MEDICARE, OTHER ==
--- NOTE | 2019-08-24 13:42 | EST ---
EXERCISE STRESS DATE OF SERVICE: 08/24/2019 AGE: 63 SEX: Female HT: 64" WT: 180 pounds PROTOCOL: STAGE: I DURATION OF EXERCISE: 3 minutes HEART RATE REST: 86 BLOOD PRESSURE REST: 107/67 MAXIMUM HEART RATE ACHIEVED: 130 MAXIMUM BLOOD PRESSURE: 153/65 85% MPHR: 135 100% MPHR: 159 METS: 4.6 INDICATIONS: Chest tightness. CLINICAL INFORMATION: Patient was exercised for a total period of 3 minutes. A peak heart rate of 130 was achieved. Maximum blood pressure of 153/65 mmHg was noted. Resting EKG shows normal sinus rhythm with normal TX interval and QRS duration and normal ST-T waves. No ST- segment depression suggestive of ischemia was noted. Occasional PVCs were noted. FINAL IMPRESSION: 1. This exercise EKG is not suggestive of ischemia. 2. Patient's exercise tolerance is below average. 3. Occasional PVCs were noted. MMODL / IJN: [id number] /
== END | disposition home or self-care (01) ==
LOC: RADNMMAIN 10:17
PROVIDERS: ATTEND Nurse Practitioner Family
DX: I10 Essential (primary) hypertension (principal); R06.00 Dyspnea, unspecified
CPT/HCPCS: 93017

== ENCOUNTER → 2019-11-13 | Outpatient (CLI) | payer MEDICARE, OTHER ==
[~2019-11-13] MED LIST changes: -DEXAMETHASONE SOD PHOSPHATE 10 MG/ML 1 ML VIAL IV ONE; -HEPARIN SODIUM,PORCINE 5,000 UNIT/ML 1 ML VIAL SQ ONE; -LACTATED RINGERS 1,000 ML IV SCH; -LIDOCAINE 1% 20 ML VIAL (10MG/ML) FOR IV START INTRADERMA PRN; -MIDAZOLAM 2 MG/2 ML VIAL IV PRN; -Pre Op ABX Message 1 EACH MISC MISCELLANE ONE; +REGADENOSON 0.4 MG/5 ML SYRINGE IV ONE; -fentaNYL (PF) 50 MCG/ML 2 ML AMP IV PRN
--- NOTE | 2019-11-13 13:53 | NM ---
EXAMINATION TYPE: NM stress lexiscan cardiolite DATE OF EXAM: 11/13/2019 COMPARISON: NONE HISTORY: Chest pain TECHNIQUE: After the intravenous administration of 10.3 mCi Tc 99m Sestamibi - Cardiolite resting SP ECT images acquired 60 minutes post injection. The patient received 0.4mg Lexiscan, 26.1 mCi Tc 99m Sestamibi - Stress images obtained [address] injection FINDINGS: Review of stress and rest SPECT images demonstrates no reversible perfusion abnormality. Faint fixed defect of the anterior ventricular wall in the distribution of the left anterior descending coronary artery. Gated analysis shows normal wall motion with an estimated left ventricular ejection fraction of 58 %. TID is within normal limits calculated at 1.17. IMPRESSION: 1. No scintigraphic evidence for reversible ischemia. 2. Mild fixed defect in the distribution of the left anterior descending coronary artery compatible w ith prior infarct.
--- NOTE | 2019-11-13 14:14 | EST ---
EXERCISE STRESS AGE: 63 SEX: F HT: 64" WT: 180 lbs. PROTOCOL: Lexiscan Cardiolite STAGE: DURATION OF EXERCISE: HEART RATE REST: 71 BLOOD PRESSURE REST: 119/80 MAXIMUM HEART RATE ACHIEVED: 89 MAXIMUM BLOOD PRESSURE: 115/75 85% MPHR: 135 100% MPHR: 157 METS: INDICATIONS: CLINICAL INFORMATION: Baseline EKG revealed normal sinus rhythm with nonspecific ST abnormality in the inferolateral leads. The patient was administered Lexiscan as per protocol, heart rate went up from 74 to 89 beats per minute, blood pressure changed from 119/80 to 110/70, and came back to baseline. EKG remained unremarkable. One isolated PVC was noted. Because of minor resting EKG changes, this culture is a technically inconclusive Lexiscan stress test. FINAL IMPRESSION: 1. By EKG criteria, this is inconclusive Lexiscan test because of minor resting EKG changes. 2. The nuclear scan results, which are more pertinent, will be reported by the radiologist. [id number] / IJN: [id number] /
== END | disposition home or self-care (01) ==
LOC: RADNMMAIN 07:52
PROVIDERS: ATTEND Family Medicine
DX: I77.89 Other specified disorders of arteries and arterioles (principal)
CPT/HCPCS: 93017; 78452; A9500; J2785

== ENCOUNTER → 2020-06-09 | Outpatient (CLI) | payer MEDICARE, OTHER ==
--- NOTE | 2020-06-09 13:24 | XR ---
EXAMINATION TYPE: XR Hip Complete RT DATE OF EXAM: 06/09/2020 CLINICAL HISTORY: Progressing right greater than left hip pain. TECHNIQUE: AP and frogleg views of the right hip are obtained. COMPARISON: CT abdomen and pelvis February 22, 2018. FINDINGS: Mild axial joint space loss right hip with mild acetabular spurring. No suspicious focal l ytic or sclerotic lesion right hip. The overlying soft tissue appears unremarkable. IMPRESSION: As above. No significant interval progression from 2018 CT..
--- NOTE | 2020-06-09 13:27 | XR ---
EXAMINATION TYPE: XR lumbosacral spine min 4V DATE OF EXAM: 06/09/2020 CLINICAL HISTORY: Low back pain. TECHNIQUE: Frontal, lateral, and oblique images of the lumbar spine are obtained. COMPARISON: Lumbar spine x-ray November 17, 2011 Findings: Presumed nearly completely sacralized L5 segment redemonstrated. The lumbar spine shows st able grade 1 retrolisthesis L4 on L5. There is mild to moderate disc space narrowing L4-L5 level wit h vacuum disc phenomenon otherwise disc space heights are maintained. Vertebral body heights are pres erved. Mild multilevel anterior and lateral spurring greatest in the mid to lower lumbar spine. The o blique images appear within normal limits. Overlying cholecystectomy clips are now present. IMPRESSION: As above.
== END | disposition home or self-care (01) ==
LOC: RADXRMAIN 12:40
PROVIDERS: ATTEND Family Medicine
DX: M25.751 Osteophyte, right hip (principal); M25.851 Other specified joint disorders, right hip; M48.061 Spinal stenosis, lumbar region without neurogenic claudication; M43.16 Spondylolisthesis, lumbar region; M51.86 Other intervertebral disc disorders, lumbar region; M43.27 Fusion of spine, lumbosacral region
CPT/HCPCS: 72110; 73502

== ENCOUNTER → 2020-06-10 | Outpatient (CLI) | payer MEDICARE, OTHER ==
--- NOTE | 2020-06-10 13:27 | CT ---
EXAMINATION TYPE: CT brain wo con DATE OF EXAM: 06/10/2020 COMPARISON: 08/08/2019 HISTORY: Dizziness, headache and unsteady gait x2 months. CT DLP: 1042.8 mGycm Automated exposure control for dose reduction was used. FINDINGS: Ventricular systems compatible with the patient's age. No evidence of acute hemorrhage or mass effect . No midline shift. Craniocervical junction maintained. Sella turcica has a normal appearance. IMPRESSION: NO EVIDENCE OF ACUTE INTRACRANIAL PROCESS. IF SYMPTOMS PERSIST CONSIDER MRI.
== END | disposition home or self-care (01) ==
LOC: RADCTMAIN 12:52
PROVIDERS: ATTEND Family Medicine
DX: R42 Dizziness and giddiness (principal)
CPT/HCPCS: 70450

== ENCOUNTER → 2020-06-20 | Outpatient (CLI) | payer MEDICARE, OTHER ==
--- NOTE | 2020-06-21 14:19 | MM ---
Reason for exam: screening (asymptomatic). Last mammogram was performed 1 year and 1 month ago. History: Patient is postmenopausal and has history of high-risk lesion on a previous biopsy at age 62. Family history of breast cancer in paternal aunt. Benign MG pre op needle loc RT of the right breast, November 12, 2018. US discontinued breast core RT of the right breast, October 17, 2018. High risk US biopsy breast VAD RT of the right breast, March 05, 2018. US discontinued breast bx RT of the right breast, January 13, 2018. Excisional biopsy of the left breast. Physical Findings: A clinical breast exam by your physician is recommended on an annual basis and results should be correlated with mammographic findings. MG 3D Screening Mammo W/Cad Bilateral CC and MLO view(s) were taken. XCCL view(s) were taken of the right breast. Prior study comparison: May 22, 2019, bilateral MG 3d diag mammo w/cad GILMAR. December 19, 2018, left breast MG 3d diag mammo w/cad LT. The breast tissue is heterogeneously dense. This may lower the sensitivity of mammography. No significant changes when compared with prior studies. ASSESSMENT: Benign, BI-RAD 2 RECOMMENDATION: Routine screening mammogram of both breasts in 1 year.
== END | disposition home or self-care (01) ==
LOC: RADMAMWWP 14:50
PROVIDERS: ATTEND Family Medicine
DX: Z12.31 Encounter for screening mammogram for malignant neoplasm of breast (principal)
CPT/HCPCS: 77063; 77067

== ENCOUNTER → 2020-07-01 | Outpatient (CLI) | payer MEDICARE, OTHER ==
--- NOTE | 2020-07-01 11:03 | XR ---
EXAMINATION TYPE: XR femur bilateral DATE OF EXAM: 07/01/2020 COMPARISON: None HISTORY: Chronic left hip pain TECHNIQUE: 2 view left femur FINDINGS: Femoral head articulates with the acetabulum. Joint spaces preserved. No acute fracture or dislocation is evident. Some mild degenerative changes present at the knee. Follow-up exams can be performed 7-10 days from acute trauma for continued pain. IMPRESSION: 1. Normal 2 view left femur
--- NOTE | 2020-07-01 11:10 | XR ---
EXAMINATION TYPE: XR Hip Complete LT DATE OF EXAM: 07/01/2020 COMPARISON: Left femur same date HISTORY: Pain TECHNIQUE: 2 view left femur FINDINGS: Femoral head articulates with the acetabulum. Joint spaces preserved. No acute fracture or dislocation is evident. IMPRESSION: 1. Normal 2 view left hip
--- NOTE | 2020-07-01 13:39 | US ---
EXAMINATION TYPE: US thyroid st tissue head/neck DATE OF EXAM: 07/01/2020 COMPARISON: NONE CLINICAL HISTORY: E04.9 Non toxic Goiter R13.10 Dysphagia. GLAND SIZE: Right Lobe: 3.5 x 1.0 x 1.9 cm Overall Parenchyma: heterogenous Left Lobe: 4.9 x 1.9 x 1.6 cm Overall Parenchyma: heterogeneous Isthmus Thickness: 0.6 cm NODULES RIGHT: # of nodules measured on right: 2 1. 0.8 X 0.6 x 0.7 cm mixed cystic and solid, nodule, which is wider than tall, with smooth margins , without echogenic foci. Prior size: x x cm 2. 0.6 X 0.4 x 0.7 cm mixed cystic and solid, nodule, which is wider than tall, with smooth margins , without echogenic foci. Prior size: 0.6 x 0.4 x 0.6 cm LEFT: # of nodules measured on left: 3 largest of multiple nodules 1. 2.2 X 1.4 x 1.3 cm solid or almost completely solid,at the upper pole, anechoic nodule, which is wider than tall, with smooth margins, without echogenic foci. Prior size: 2.4 x 1.4 x 1.4 cm 2. 0.8 X 0.8 x 0.6 cm mixed cystic and solid, anechoic nodule, which is wider than tall,at the mid pole, with smooth margins, without echogenic foci. Prior size: 0.8 x 0.7 x 0.8 cm 3. 1.2 X 0.9 x 1.1 cm solid or almost completely solid, anechoic nodule, which is wider than tall, with smooth margins,at the lower pole without echogenic foci. Prior size: 1.4 x 1.1 x 1.2 cm ISTHMUS: # of nodules measured in the isthmus: 0 Bilateral neck scanned, no evidence of lymphadenopathy. IMPRESSION: 1. Thyroid nodules. TI RADS level TR 2
== END | disposition home or self-care (01) ==
LOC: RADUSWWP 10:05
PROVIDERS: ATTEND Family Medicine
DX: E04.2 Nontoxic multinodular goiter (principal); M25.552 Pain in left hip; M79.651 Pain in right thigh; M79.652 Pain in left thigh
CPT/HCPCS: 73502; 76536

== ENCOUNTER 2020-07-03 17:50 | Emergency (ER) | payer MEDICARE, OTHER ==
--- NOTE | 2020-07-03 19:22 | XR ---
EXAMINATION TYPE: XR chest 2V DATE OF EXAM: 07/03/2020 COMPARISON: 08/08/2019 HISTORY: Short of breath. Chest pain TECHNIQUE: FINDINGS: Heart is normal. Lungs are clear of infiltrate. There is no heart failure. There are no hil ar masses. There are chest leads. IMPRESSION: No active cardiopulmonary disease. There is clearing of the atelectasis in the right lung compared to old exam.
[2020-07-03 19:29] LABS: Basophils # (A) 0.1 k/uL (0-0.2); Basophils % (A) 2 %; Eosinophils # (A) 0.2 k/uL (0-0.7); Eosinophils % (A) 3 %; HCT 44.6 % (34.0-46.0); HGB 14.6 gm/dL (11.4-16.0); Lymphocytes # (A) 1.1 k/uL (1.0-4.8); Lymphocytes % (A) 18 %; MCH 29.5 pg (25.0-35.0); MCHC 32.7 g/dL (31.0-37.0); MCV 90.2 fL (80.0-100.0); Mean Platelet Volume 7.7; Monocytes # (A) 0.4 k/uL (0-1.0); Monocytes % (A) 6 %; Neutrophils # (A) 4.1 k/uL (1.3-7.7); Neutrophils % (A) 69 %; Platelet Count 227 k/uL (150-450); RBC 4.95 m/uL (3.80-5.40); RDW 13.3 % (11.5-15.5)
[2020-07-03 19:37] LABS: ALT 32 U/L (4-34); AST 27 U/L (14-36); African American GFR (CKD) >90 (>60 ml/min/1.73 sqM); Albumin 4.4 g/dL (3.5-5.0); Alkaline Phosphatase 75 U/L (38-126); Anion Gap 6 mmol/L; Blood Urea Nitrogen 17 mg/dL (7-17); Calcium 9.8 mg/dL (8.4-10.2); Carbon Dioxide 25 mmol/L (22-30); Chloride 110 mmol/L (98-107); Glucose 99 mg/dL (74-99); Magnesium 1.9 mg/dL (1.6-2.3); Non-African American GFR(CKD) >90 (>60 ml/min/1.73 sqM); Potassium 4.1 mmol/L (3.5-5.1); Sodium 141 mmol/L (137-145); Total Bilirubin 0.6 mg/dL (0.2-1.3); Total Protein 6.9 g/dL (6.3-8.2)
[2020-07-03 19:50] LABS: INR 0.9 (<1.2); Partial Thromboplastin Time 22.2 sec (22.0-30.0); Prothrombin Time 9.6 sec (9.0-12.0)
--- NOTE | 2020-07-03 19:53 | ED ---
Recheck HPI - General Chief Complaint: Recheck/Abnormal Lab/Rx Stated Complaint: High BP Time Seen by Provider: 07/03/20 17:58 Source: patient Mode of arrival: ambulatory Limitations: no limitations - History of Present Illness Initial Comments: 64yo female presenting for cc of elevated blood pressure readings. pt states her blood pressure has been elevated she states she's been taking it every 30 minutes to one hour, denies systolic > 200 or diastolic > 110. Pt states she has no new symptoms. she states for years no one can figure out why she has had RUQ. She denies increasing RUQ pain. Dneies chest pain, chest pressure, dyspnea, leg swelling, urinary changes, nausea, vomiting, jaw pain, arm pain, back pain. Patient denies headache, visual changes, vision loss. Patient denies weakness, sensation deficits. Pt states she was at her pCP earlier this week and BP medications changed around. pt states she went to [facility] for same thing, asymptomatic blood pressure last week. No additional complaints. pt appears well nontoxic. - Related Data Home Medications Medication Instructions Recorded Confirmed Losartan Potassium 100 mg PO DAILY 07/11/17 08/08/19 Hydrochlorothiazide 12.5 mg PO DAILY 10/09/17 08/08/19 [hydroCHLOROthiazide] Allergies Allergy/AdvReac Type Severity Reaction Status Date / Time No Known Allergies Allergy Verified 08/08/19 20:12 Review of Systems ROS Statement: Those systems with pertinent positive or pertinent negative responses have been documented in the HPI. ROS Other: All systems not noted in ROS Statement are negative. Past Medical History Past Medical History: COPD, CVA/TIA, Hypertension, Neurologic Disorder, Sleep Apnea/CPAP/BIPAP, Thyroid Disorder Additional Past Medical History / Comment(s): has had bloody discharge from rt nipple, Current bronchitis on antibiotics, states has "canker sore" on tongue, STates no residual effects from TIA, back pain, osteoporosis: patient states her hip bones are deteriorating bilaterally this, has burning numbness and tingling from hips to feet bilaterally. "thickening of esophagus". History of Any Multi-Drug Resistant Organisms: None Reported Past Surgical History: Adenoidectomy, Section, Cholecystectomy, Hysterectomy, Orthopedic Surgery, Tonsillectomy Additional Past Surgical History / Comment(s): Rt breast bx, x4, disc fusions in the neck (c4-C7) and back [place] bunionectomy, moreno cataract surgery, rt shoulder surgery, left breast bx at age 16 (findings benign) Past Anesthesia/Blood Transfusion Reactions: Postoperative Nausea & Vomiting (PONV) Additional Past Anesthesia/Blood Transfusion Reaction / Comment(s): No blood transfusion to date Past Psychological History: Anxiety, Depression, PTSD Smoking Status: Current every day smoker Past Alcohol Use History: None Reported Past Drug Use History: None Reported - Past Family History Father Family Medical History: Dementia, Hypertension, Neurologic Disorder Additional Family Medical History / Comment(s): Parkinson's Son(s) Family Medical History: Asthma Mother Additional Family Medical History / Comment(s): TIA. General Exam - General Exam Comments Initial Comments: General: The patient is awake and alert, in no distress Eye: +3 mm pupils are equal, round and reactive to light, extra-ocular movements are intact. No nystagmus. There is normal conjunctiva bilaterally. No signs of icterus. Ears, nose, mouth and throat: There are moist mucous membranes and no oral lesions. Neck: The neck is supple, there is no tenderness or JVD. Cardiovascular: There is a regular rate and rhythm. No murmur, rub or gallop is appreciated. Respiratory: Lungs are clear to auscultation, respirations are non-labored, breath sounds are equal. No wheezes, stridor, rales, or rhonchi. Gastrointestinal: Soft, non-distended, non-tender abdomen without masses or organomegaly noted. There is no rebound or guarding present. No pulsatile masses Musculoskeletal: Normal ROM, no tenderness. Strength 5/5. Sensation intact. Radial and DP pulses equal bilaterally 2+. Neurological: A&O x 3. CN II-XII intact, There are no obvious motor or sensory deficits. Coordination appears grossly intact. Speech is normal. Skin: Skin is warm and dry and no rashes or lesions are noted. No LE edema Psychiatric: Cooperative, appropriate mood & affect, normal judgment. Limitations: no limitations Course Vital Signs 07/03/20 07/03/20 07/03/20 17:53 19:29 19:54 Temperature 98.0 F Pulse Rate 79 71 68 Respiratory 18 18 18 Rate Blood Pressure 175/90 142/95 150/94 O2 Sat by Pulse 98 99 98 Oximetry Medical Decision Making - Medical Decision Making Lung clear. normal heart sounds, EKG no acute changes. no chest pain, no shortness of breath. pt denies new symptoms. on chart review i do see patient RUQ complaints dating back to 2019. pt CXR clear. troponin (-). BP elevated but improved from home readings. pt states she is anxious about her BP now. pt has no focal deficits. pt case discussed with Dr. Kinney given pt has no new symptoms. only a symptoms that has been present for years which patient states is not new nor related that she has asymptomatic BP and is stable for discharge. pt personally requesting discharge aware of return parameters and BP parameters recommended PCP f/u this week for adjustment to regime. - Lab Data Result diagrams: 07/03/20 19:19 07/03/20 19:19 Lab Results 07/03/20 07/03/20 07/03/20 Range/Units 19:19 19:19 19:19 WBC 6.0 (3.8-10.6) k/uL RBC 4.95 (3.80-5.40) m/uL Hgb 14.6 (11.4-16.0) gm/dL Hct 44.6 (34.0-46.0) % MCV 90.2 (80.0-100.0) fL MCH 29.5 (25.0-35.0) pg MCHC 32.7 (31.0-37.0) g/dL RDW 13.3 (11.5-15.5) % Plt Count 227 (150-450) k/uL MPV 7.7 Neutrophils % 69 % Lymphocytes % 18 % Monocytes % 6 % Eosinophils % 3 % Basophils % 2 % Neutrophils # 4.1 (1.3-7.7) k/uL Lymphocytes # 1.1 (1.0-4.8) k/uL Monocytes # 0.4 (0-1.0) k/uL Eosinophils # 0.2 (0-0.7) k/uL Basophils # 0.1 (0-0.2) k/uL PT 9.6 (9.0-12.0) sec INR 0.9 (<1.2) APTT 22.2 (22.0-30.0) sec Sodium 141 (137-145) mmol/L Potassium 4.1 (3.5-5.1) mmol/L Chloride 110 H (98-107) mmol/L Carbon Dioxide 25 (22-30) mmol/L Anion Gap 6 mmol/L BUN 17 (7-17) mg/dL Creatinine 0.67 (0.52-1.04) mg/dL Est GFR (CKD-EPI)AfAm >90 (>60 ml/min/1.73 sqM) Est GFR (CKD-EPI)NonAf >90 (>60 ml/min/1.73 sqM) Glucose 99 (74-99) mg/dL Calcium 9.8 (8.4-10.2) mg/dL Magnesium 1.9 (1.6-2.3) mg/dL Total Bilirubin 0.6 (0.2-1.3) mg/dL AST 27 (14-36) U/L ALT 32 (4-34) U/L Alkaline Phosphatase 75 (38-126) U/L Troponin I (0.000-0.034) ng/mL Total Protein 6.9 (6.3-8.2) g/dL Albumin 4.4 (3.5-5.0) g/dL 07/03/20 Range/Units 19:19 WBC (3.8-10.6) k/uL RBC (3.80-5.40) m/uL Hgb (11.4-16.0) gm/dL Hct (34.0-46.0) % MCV (80.0-100.0) fL MCH (25.0-35.0) pg MCHC (31.0-37.0) g/dL RDW (11.5-15.5) % Plt Count (150-450) k/uL MPV Neutrophils % % Lymphocytes % % Monocytes % % Eosinophils % % Basophils % % Neutrophils # (1.3-7.7) k/uL Lymphocytes # (1.0-4.8) k/uL Monocytes # (0-1.0) k/uL Eosinophils # (0-0.7) k/uL Basophils # (0-0.2) k/uL PT (9.0-12.0) sec INR (<1.2) APTT (22.0-30.0) sec Sodium (137-145) mmol/L Potassium (3.5-5.1) mmol/L Chloride (98-107) mmol/L Carbon Dioxide (22-30) mmol/L Anion Gap mmol/L BUN (7-17) mg/dL Creatinine (0.52-1.04) mg/dL Est GFR (CKD-EPI)AfAm (>60 ml/min/1.73 sqM) Est GFR (CKD-EPI)NonAf (>60 ml/min/1.73 sqM) Glucose (74-99) mg/dL Calcium (8.4-10.2) mg/dL Magnesium (1.6-2.3) mg/dL Total Bilirubin (0.2-1.3) mg/dL AST (14-36) U/L ALT (4-34) U/L Alkaline Phosphatase (38-126) U/L Troponin I <0.012 (0.000-0.034) ng/mL Total Protein (6.3-8.2) g/dL Albumin (3.5-5.0) g/dL Disposition Clinical Impression: Elevated blood pressure reading Disposition: HOME SELF-CARE Condition: Good Instructions (If sedation given, give patient instructions): Hypertensive Crisis (ED), Hypertension (ED) Additional Instructions: Please use medication as discussed. Please follow-up with family doctor in the next 2 days. Please return to emergency room if the symptoms increase or worsen or for any other concerns. Is patient prescribed a controlled substance at d/c from ED?: No Referrals: Carmelita Chadwick MD [Primary Care Provider] - 1-2 days Time of Disposition: 20:15
[2020-07-03 20:43] VITALS: BP 168/93; PULSE 74; RESP 16; TEMP 97.9
== END 2020-07-03 20:41 | disposition home or self-care (01) ==
LOC: EC 17:50
DX: I10 Essential (primary) hypertension (principal); F17.200 Nicotine dependence, unspecified, uncomplicated; G47.33 Obstructive sleep apnea (adult) (pediatric); Z79.899 Other long term (current) drug therapy; Z86.73 Personal history of transient ischemic attack (TIA), and cerebral infarction without residual deficits; Z99.89 Dependence on other enabling machines and devices; Z90.49 Acquired absence of other specified parts of digestive tract; Z90.710 Acquired absence of both cervix and uterus; Z98.42 Cataract extraction status, left eye; Z98.41 Cataract extraction status, right eye; Z98.1 Arthrodesis status
CPT/HCPCS: 36415; 71046; 80053; 83735; 84484; 85025; 85610; 85730; 93005; 99284

== ENCOUNTER → 2020-07-18 | Outpatient (CLI) | payer MEDICARE, OTHER ==
--- NOTE | 2020-07-18 12:47 | ECHOF ---
Referral Reason:G47.33 CT, I10 Hypertention MEASUREMENTS -------- HEIGHT: 162.6 cm WEIGHT: 81.6 kg BP: RVIDd: 2.3 cm (< 3.3) IVSd: 1.0 cm (0.6 - 1.1) LVIDd: 4.0 cm (3.9 - 5.3) LVPWd: 1.2 cm (0.6 - 1.1) IVSs: 1.9 cm LVIDs: 2.6 cm LVPWs: 1.7 cm LAESV Index (A-L): 17.80 ml/m Ao Diam: 2.7 cm (2.0 - 3.7) AV Cusp: 1.7 cm (1.5 - 2.6) LA Diam: 2.4 cm (2.7 - 3.8) MV EXCURSION: 9.371 mm (> 18.000) MV EF SLOPE: 41 mm/s (70 - 150) EPSS: 0.8 cm MV E Apollo: 0.81 m/s MV DecT: 204 ms MV A Apollo: 1.02 m/s MV E/A Ratio: 0.80 AR PHT: 808 ms RAP: 5.00 mmHg RVSP: 20.59 mmHg FINDINGS -------- Sinus rhythm. This was a technically adequate study. The left ventricular size is normal. There is borderline concentric left ventricular hypertrophy. Overall left ventricular systolic function is normal with, an EF between 55 - 60 %. The diastolic filling pattern is normal for the age of the patient 14.28. The right ventricle is normal in size. Normal LA size by volume 22+/-6 ml/m2. The right atrial size is normal. Interatrial and interventricular septum intact. There is mild aortic valve sclerosis. There is moderate aortic regurgitation. The mitral valve leaflets are mildly thickened. Mild mitral regurgitation is present. The tricuspid valve appears structurally normal. Mild tricuspid regurgitation present. Right vent ricular systolic pressure is normal at < 35 mmHg. There is no pulmonic regurgitation present. The aortic root size is normal. Normal inferior vena cava with normal inspiratory collapse consistent with estimated right atrial pre ssure of 5 mmHg. There is no pericardial effusion. CONCLUSIONS -------- 1. There is borderline concentric left ventricular hypertrophy. 2. Overall left ventricular systolic function is normal with, an EF between 55 - 60 %. 3. There is moderate aortic regurgitation. 4. The mitral valve leaflets are mildly thickened. 5. Mild mitral regurgitation is present. 6. Mild tricuspid regurgitation present. 7. There is no pericardial effusion. OPT[employer] TECHNICIAN: Amber Kaye RDCS
== END | disposition home or self-care (01) ==
LOC: RADECHMAIN 11:59
PROVIDERS: ATTEND Family Medicine
DX: I08.3 Combined rheumatic disorders of mitral, aortic and tricuspid valves (principal); I10 Essential (primary) hypertension; G47.33 Obstructive sleep apnea (adult) (pediatric); E66.9 Obesity, unspecified
CPT/HCPCS: 93306

== ENCOUNTER 2020-10-08 16:02 | Emergency (ER) | payer MEDICARE, OTHER ==
[2020-10-08 16:40] VITALS: RESP 18
[2020-10-08] MEDS ORDERED: SODIUM CHLORIDE 0.9% 1,000 ML IV STA (17:50)
[2020-10-08] MEDS ORDERED: KETOROLAC 15 MG/ML 1 ML VIAL IVP STA (17:51)
--- NOTE | 2020-10-08 17:57 | ED ---
Dizziness HPI - General Source: patient, RN notes reviewed Mode of arrival: ambulatory Limitations: no limitations - History of Present Illness MD Complaint: dizziness, lightheadedness -: days(s) (1) Description: lightheadedness History of Trauma: No Severity: mild Improves With: rest (laying down) Worsens With: position (standing up fast or quick position changes) Associated Symptoms: other (sore throat) <Festus Paz - Last Filed: 10/08/20 19:04> <Mariia Bennett - Last Filed: 10/11/20 02:26> - General Chief Complaint: Dizziness Stated Complaint: Lightheaded, pressure in head Time Seen by Provider: 10/08/20 17:09 - History of Present Illness Initial Comments: 64-year-old female patient, in no acute distress, presents to the emergency room with complaints of lightheadedness since yesterday. Patient states she received the Juan & Juan vaccine on September 30. Did have covid on September 14 with symptoms of congestion and fatigue. Patient states her brother was diagnosed with Covid when she went to check and in Saturday since he signed himself out of the hospital when she found him . Patient states that she's been reading about Juan & Juan vaccine and the risk of blood clots and is not concerned that she may have a blood clot. Patient denying any chest pain, shortness of breath at this time. Patient has a history of COPD, hypertension and admits to smoking 2-3 cigarettes a day. Patient admits to not drinking as much fluid as she should be. States urine is dark yellow in color. Oxygen sat 97% on room air. No pain at this time. Is complaining of myalgias to bilateral legs and right arm. (Festus Paz) - Related Data Home Medications Medication Instructions Recorded Confirmed Losartan Potassium 100 mg PO DAILY 07/11/17 10/08/20 Atorvastatin Calcium [Lipitor] 40 mg PO DAILY 10/08/20 10/08/20 Cholecalciferol [Vitamin D3 (25 25 mcg PO DAILY 10/08/20 10/08/20 Mcg = 1000 Iu)] Fluticasone Nasal [place] [Flonase 1 spray EA NOSTRIL BID PRN 10/08/20 10/08/20 Nasal [place]] Metoprolol Succinate (ER) [Toprol 100 mg PO DAILY 10/08/20 10/08/20 Xl] Prevident 5000 Plus 1.1% 1 applicate DENTAL HS 10/08/20 10/08/20 Spironolactone 50 mg PO DAILY 10/08/20 10/08/20 metFORMIN HCL ER [Glucophage Xr] 500 mg PO BID 10/08/20 10/08/20 Allergies Allergy/AdvReac Type Severity Reaction Status Date / Time No Known Allergies Allergy Verified 10/08/20 18:17 Review of Systems ROS Other: All systems not noted in ROS Statement are negative. <Festus Paz - Last Filed: 10/08/20 19:04> ROS Other: All systems not noted in ROS Statement are negative. <Mariia Bennett - Last Filed: 10/11/20 02:26> ROS Statement: Those systems with pertinent positive or pertinent negative responses have been documented in the HPI. Past Medical History Past Medical History: COPD, CVA/TIA, Hypertension, Neurologic Disorder, Sleep Apnea/CPAP/BIPAP, Thyroid Disorder Additional Past Medical History / Comment(s): has had bloody discharge from rt nipple, Current bronchitis on antibiotics, states has "canker sore" on tongue, STates no residual effects from TIA, back pain, osteoporosis: patient states her hip bones are deteriorating bilaterally this, has burning numbness and tingling from hips to feet bilaterally. "thickening of esophagus". History of Any Multi-Drug Resistant Organisms: None Reported Past Surgical History: Adenoidectomy, Section, Cholecystectomy, Hysterectomy, Orthopedic Surgery, Tonsillectomy Additional Past Surgical History / Comment(s): Rt breast bx, x4, disc fusions in the neck (c4-C7) and back [place] bunionectomy, [place]il[place] cataract surgery, rt shoulder surgery, left breast bx at age 16 (findings benign) Past Anesthesia/Blood Transfusion Reactions: Postoperative Nausea & Vomiting (PONV) Additional Past Anesthesia/Blood Transfusion Reaction / Comment(s): No blood transfusion to date Past Psychological History: Anxiety, Depression, PTSD Smoking Status: Former smoker Past Alcohol Use History: None Reported Past Drug Use History: None Reported - Past Family History Father Family Medical History: Dementia, Hypertension, Neurologic Disorder Additional Family Medical History / Comment(s): Parkinson's Son(s) Family Medical History: Asthma Mother Additional Family Medical History / Comment(s): TIA. <Festus Paz - Last Filed: 10/08/20 19:04> General Exam Limitations: no limitations General appearance: alert, in no apparent distress, anxious Head exam: Present: atraumatic, normocephalic, normal inspection Eye exam: Present: normal appearance, PERRL, EOMI. Absent: scleral icterus, conjunctival injection, nystagmus, periorbital swelling ENT exam: Present: normal exam, normal oropharynx, mucous membranes moist Neck exam: Present: normal inspection, full ROM. Absent: tenderness, meni ngismus, lymphadenopathy Respiratory exam: Present: normal lung sounds bilaterally. Absent: respiratory distress, wheezes, rales, rhonchi, stridor, chest wall tenderness, decreased breath sounds Cardiovascular Exam: Present: regular rate GI/Abdominal exam: Present: soft, normal bowel sounds. Absent: distended, tenderness, guarding, rebound, rigid Rectal exam: Present: deferred Extremities exam: Present: normal inspection, full ROM, normal capillary refill. Absent: tenderness, pedal edema, joint swelling, calf tenderness Back exam: Present: normal inspection, full ROM. Absent: tenderness, CVA tenderness (R), CVA tenderness (L) Neurological exam: Present: alert, oriented X3, CN II-XII intact Psychiatric exam: Present: normal affect, normal mood, anxious Skin exam: Present: warm, dry, intact, normal color. Absent: rash <Festus Paz - Last Filed: 10/08/20 19:04> Course Vital Signs 10/08/20 10/08/20 16:34 19:54 Temperature 97.9 F 98.3 F Pulse Rate 83 62 Respiratory 18 18 Rate Blood Pressure 136/84 109/70 O2 Sat by Pulse 97 98 Oximetry EKG Findings - EKG Results: EKG: WNL, sinus rhythm (Ventricular rate 61, MA interval 0.15, QRS 0.82, QTC 0.422, normal sinus rhythm) <Festus Paz - Last Filed: 10/08/20 19:04> Medical Decision Making - Lab Data Result diagrams: 10/08/20 18:08 10/08/20 18:08 <Festus Paz - Last Filed: 10/08/20 19:04> - Lab Data Result diagrams: 10/08/20 18:08 10/08/20 18:08 <Mariia Bennett - Last Filed: 10/11/20 02:26> - Medical Decision Making Patient states feeling better after IV fluids and Toradol. Chest x-ray shows no heart failure, known cardiopulmonary process, no infiltrates. Troponin 0.012, white count 7.3 BUN is 19. EKG shows normal sinus rhythm with ventricular rate of 61. Patient comfortable with going home and following up with her primary care doctor Dr. Carmelita Chadwick., Will return to the emergency room with worsening symptoms chest pain shortness of breath. Case discussed with Dr. Bennett who is agreeable to this plan (Festus Paz) I was available for consultation in the emergency department. The history and physical exam were done by the midlevel provider. I was consulted for this patients care. I reviewed the case with the midlevel provider and based on their presentation of the patient, I agree with the assessment, medical decision making and plan of care as documented. Chart was dictated using [employer] dictation software. Attempts were made to correct any dictation errors however some typographical errors may persist. Patient was seen during a national state of emergency due to the Covid-19 pandemic. (Mariia Bennett) - Lab Data Lab Results 10/08/20 10/08/20 10/08/20 Range/Units 18:08 18:08 18:08 WBC 7.3 (3.8-10.6) k/uL RBC 4.60 (3.80-5.40) m/uL Hgb 14.2 (11.4-16.0) gm/dL Hct 40.6 (34.0-46.0) % MCV 88.4 (80.0-100.0) fL MCH 30.8 (25.0-35.0) pg MCHC 34.9 (31.0-37.0) g/dL RDW 13.5 (11.5-15.5) % Plt Count 222 (150-450) k/uL MPV 7.9 Neutrophils % 69 % Lymphocytes % 16 % Monocytes % 8 % Eosinophils % 4 % Basophils % 1 % Neutrophils # 5.0 (1.3-7.7) k/uL Lymphocytes # 1.1 (1.0-4.8) k/uL Monocytes # 0.6 (0-1.0) k/uL Eosinophils # 0.3 (0-0.7) k/uL Basophils # 0.1 (0-0.2) k/uL Sodium 140 (137-145) mmol/L Potassium 4.5 (3.5-5.1) mmol/L Chloride 108 H (98-107) mmol/L Carbon Dioxide 22 (22-30) mmol/L Anion Gap 10 mmol/L BUN 19 H (7-17) mg/dL Creatinine 0.84 (0.52-1.04) mg/dL Est GFR (CKD-EPI)AfAm 86 (>60 ml/min/1.73 sqM) Est GFR (CKD-EPI)NonAf 75 (>60 ml/min/1.73 sqM) Glucose 88 (74-99) mg/dL Calcium 9.8 (8.4-10.2) mg/dL Total Bilirubin 1.0 (0.2-1.3) mg/dL AST 26 (14-36) U/L ALT 36 H (4-34) U/L Alkaline Phosphatase 76 (38-126) U/L Troponin I <0.012 (0.000-0.034) ng/mL Total Protein 7.1 (6.3-8.2) g/dL Albumin 4.5 (3.5-5.0) g/dL Disposition Is patient prescribed a controlled substance at d/c from ED?: No Time of Disposition: 19:07 <Festus Paz - Last Filed: 10/08/20 19:04> <Mariia Bennett - Last Filed: 10/11/20 02:26> Clinical Impression: Myalgia after severe acute respiratory syndrome coronavirus 2 (SARS-CoV-2) vac cination Disposition: HOME SELF-CARE Condition: Good Instructions (If sedation given, give patient instructions): Lightheadedness (ED) Additional Instructions: Increase your fluid intake to 6-8 glasses of water a day, follow-up with the primary care doctor this week, return to the emergency room with worsening symptoms, chest pain, shortness of breath. Referrals: Carmelita Chadwick MD [Primary Care Provider] - 1-2 days
[2020-10-08 18:12] LABS: Basophils # (A) 0.1 k/uL (0-0.2); Basophils % (A) 1 %; Eosinophils # (A) 0.3 k/uL (0-0.7); Eosinophils % (A) 4 %; HCT 40.6 % (34.0-46.0); HGB 14.2 gm/dL (11.4-16.0); Lymphocytes # (A) 1.1 k/uL (1.0-4.8); Lymphocytes % (A) 16 %; MCH 30.8 pg (25.0-35.0); MCHC 34.9 g/dL (31.0-37.0); MCV 88.4 fL (80.0-100.0); Mean Platelet Volume 7.9; Monocytes # (A) 0.6 k/uL (0-1.0); Monocytes % (A) 8 %; Neutrophils % (A) 69 %; Platelet Count 222 k/uL (150-450); RDW 13.5 % (11.5-15.5); WBC 7.3 k/uL (3.8-10.6)
[2020-10-08 18:25] LABS: Albumin 4.5 g/dL (3.5-5.0); Calcium 9.8 mg/dL (8.4-10.2); Potassium 4.5 mmol/L (3.5-5.1); Total Protein 7.1 g/dL (6.3-8.2)
--- NOTE | 2020-10-08 18:30 | XR ---
EXAMINATION TYPE: XR chest 2V DATE OF EXAM: 10/08/2020 COMPARISON: 07/03/2020 HISTORY: Chest pain. Weakness. TECHNIQUE: FINDINGS: There is no heart failure nor confluent pneumonic infiltrate. Costophrenic angles are clear . Heart is borderline enlarged. There are chest leads. IMPRESSION: No active cardiopulmonary disease. No change.
[2020-10-08 19:55] VITALS: BP 109/70; PULSE 62; TEMP 98.3
== END 2020-10-08 19:55 | disposition home or self-care (01) ==
LOC: EC 16:02
DX: M79.18 Myalgia, other site (principal); J80 Acute respiratory distress syndrome; R42 Dizziness and giddiness; I10 Essential (primary) hypertension; F32.9 Major depressive disorder, single episode, unspecified; J44.9 Chronic obstructive pulmonary disease, unspecified; F41.9 Anxiety disorder, unspecified; G47.30 Sleep apnea, unspecified; Z86.73 Personal history of transient ischemic attack (TIA), and cerebral infarction without residual deficits; Z87.891 Personal history of nicotine dependence; Z79.899 Other long term (current) drug therapy; Z79.84 Long term (current) use of oral hypoglycemic drugs
CPT/HCPCS: 36415; 93005; 80053; 84484; 85025; 71046; 99284; 96374; J1885

== ENCOUNTER → 2020-10-31 | Outpatient (CLI) | payer MEDICARE, OTHER ==
--- NOTE | 2020-11-01 07:04 | US ---
EXAMINATION TYPE: US thyroid st tissue head/neck DATE OF EXAM: 10/31/2020 COMPARISON: NONE CLINICAL HISTORY: E04.9 goiter. THY NODULES GLAND SIZE: Right Lobe: 3.4 x 1.4 x 1.5 cm Overall Parenchyma: homogenous Left Lobe: 5.2 1.7 x 2.0 cm Overall Parenchyma: homogeneous Isthmus Thickness: cm NODULES RIGHT: # of nodules measured on right: 2 1. .7 X .6 x .9 cm, mid , solid or almost completely solid, hypoechoic nodule, which is wider than tall, with smooth margins, without echogenic foci. Prior size: .8 x .6 x .7 cm 2. .6 X .4 x .5 cm, lower medial, solid or almost completely solid, hypoechoic nodule, which is wid er than tall, with smooth margins, without echogenic foci. Prior size: .6 x .4 x .7 cm LEFT: # of nodules measured on left: 2 1. 2.2 X 1.2 x 1.6 cm, upper , solid or almost completely solid, hypoechoic nodule, which is wider than tall, with smooth margins, without echogenic foci. Prior size: 2.2 x 1.4 x 1.3 cm 2. 1.4 X .9 x 1.1 cm, lower , solid or almost completely solid, hypoechoic nodule, which is wider than tall, with smooth margins, with echogenic foci. Prior size: 1.2 x .9 x 1.1 cm ISTHMUS: # of nodules measured in the isthmus: .6 cm Bilateral neck scanned, no evidence of lymphadenopathy. IMPRESSION: 1. Stable bilateral thyroid multinodular changes 2017 ACR TI-RADS LEVEL: TR-RADS 4 - Moderately Suspicious: Follow if > 1 cm, FNA if > 1.5 cm *Highest TI-RADS level nodule reported
== END | disposition home or self-care (01) ==
LOC: RADUSWWP 16:50
PROVIDERS: ATTEND Family Medicine
DX: E04.2 Nontoxic multinodular goiter (principal)
CPT/HCPCS: 76536

== ENCOUNTER → 2021-01-23 | Outpatient (CLI) | payer MEDICARE ==
--- NOTE | 2021-01-24 07:40 | CTL ---
EXAMINATION TYPE: CT Low Dose Lung DATE OF EXAM ORDERED: 01/23/2021 HISTORY: Long-term tobacco use. Lung cancer screening CT DLP: [address] CTDI: 2.95 mGy Automated exposure control for dose reduction was used. SCREENING VISIT: Second after baseline COMPARISON: Prior studies 2019 and 2018 TECHNIQUE: Low dose computed tomography scan was performed through the chest at 1 mm thick sections a nd reconstructed images in the coronal plane at [address] DIAGNOSTIC QUALITY: Limited, but interpretable Due to large body habitus FINDINGS: LUNG NODULES: Present, detailed below: Scattered micronodules measuring 3 mm or smaller in size seen best on coronal MIPS images throughout the right lung LUNGS: COPD: Severity: None Fibrosis: Severity: None Lymph nodes: No greater than 1 cm Other findings: None RIGHT PLEURAL SPACE: Effusion: None Calcification: None Thickening: None Pneumothorax: None LEFT PLEURAL SPACE: Effusion: None Calcification: None Thickening: None Pneumothorax: None HEART: Heart Size: Normal Coronary calcification: Mild Pericardial effusion: None OTHER FINDINGS: Upper abdomen: Cholecystectomy clips Bony thorax: Surgical changes of the cervical spine is partially imaged Supraclavicular region: None Other: None IMPRESSION: No suspicious greater than [address] LUNG RAD AND [address] CHEST RECOMMENDATION: Lung-Rad 1 Negative: Continue annual screening with LDCT in 12 months. S Modifier (other clinically significant findings): None
== END | disposition home or self-care (01) ==
LOC: RADCTMAIN 17:03
PROVIDERS: ATTEND Family Medicine
DX: Z12.2 Encounter for screening for malignant neoplasm of respiratory organs (principal); F17.200 Nicotine dependence, unspecified, uncomplicated
CPT/HCPCS: 71271

== ENCOUNTER 2021-03-16 09:23 | Emergency (ER) | payer MEDICARE ==
[2021-03-16 09:34] VITALS: TEMP 98.4
[2021-03-16 10:21] VITALS: RESP 16
--- NOTE | 2021-03-16 10:42 | ED ---
General Adult HPI - General Chief complaint: Extremity Injury, Upper Stated complaint: Sore throat/ear pain Time Seen by Provider: 03/16/21 09:34 Source: patient, RN notes reviewed, old records reviewed Mode of arrival: ambulatory Limitations: no limitations - History of Present Illness Initial comments: 65 yo female' presenting for evaluation of sore throat, bilateral ear pain, congestion. Symptoms of the present for the past couple days. Patient did also reports some upper back discomfort, squeezing sensation as well which radiated to the bilateral shoulders. No central chest pain although she states that she has had intermittent chest pain for some time. She is a current smoker. She has been vaccinated against coronavirus and has previously had coronavirus. - Related Data Home Medications Medication Instructions Recorded Confirmed Losartan Potassium 100 mg PO DAILY 07/11/17 10/08/20 Atorvastatin Calcium [Lipitor] 40 mg PO DAILY 10/08/20 10/08/20 Cholecalciferol [Vitamin D3 (25 25 mcg PO DAILY 10/08/20 10/08/20 Mcg = 1000 Iu)] Fluticasone Nasal [place] [Flonase 1 spray EA NOSTRIL BID PRN 10/08/20 10/08/20 Nasal [place]] Metoprolol Succinate (ER) [Toprol 100 mg PO DAILY 10/08/20 10/08/20 Xl] Prevident 5000 Plus 1.1% 1 applicate DENTAL HS 10/08/20 10/08/20 Spironolactone 50 mg PO DAILY 10/08/20 10/08/20 metFORMIN HCL ER [Glucophage Xr] 500 mg PO BID 10/08/20 10/08/20 Allergies Allergy/AdvReac Type Severity Reaction Status Date / Time hydrochlorothiazide Allergy Unknown Verified 03/16/21 09:31 Review of Systems ROS Statement: Those systems with pertinent positive or pertinent negative responses have been documented in the HPI. ROS Other: All systems not noted in ROS Statement are negative. Past Medical History Past Medical History: COPD, CVA/TIA, Hypertension, Neurologic Disorder, Sleep Apnea/CPAP/BIPAP, Thyroid Disorder Additional Past Medical History / Comment(s): has had bloody discharge from rt nipple, Current bronchitis on antibiotics, states has "canker sore" on tongue, STates no residual effects from TIA, back pain, osteoporosis: patient states her hip bones are deteriorating bilaterally this, has burning numbness and tingling from hips to feet bilaterally. "thickening of esophagus". History of Any Multi-Drug Resistant Organisms: None Reported Past Surgical History: Adenoidectomy, Section, Cholecystectomy, Hyster ectomy, Orthopedic Surgery, Tonsillectomy Additional Past Surgical History / Comment(s): Rt breast bx, x4, disc fusions in the neck (c4-C7) and back Moreno bunionectomy, moreno cataract surgery, rt shoulder surgery, left breast bx at age 16 (findings benign) Past Anesthesia/Blood Transfusion Reactions: Postoperative Nausea & Vomiting (PONV) Additional Past Anesthesia/Blood Transfusion Reaction / Comment(s): No blood transfusion to date Past Psychological History: Anxiety, Depression, PTSD Smoking Status: Former smoker Past Alcohol Use History: None Reported Past Drug Use History: None Reported - Past Family History Father Family Medical History: Dementia, Hypertension, Neurologic Disorder Additional Family Medical History / Comment(s): Parkinson's Son(s) Family Medical History: Asthma Mother Additional Family Medical History / Comment(s): TIA. General Exam Limitations: no limitations General appearance: alert, in no apparent distress Head exam: Present: atraumatic, normocephalic Eye exam: Present: normal appearance, PERRL ENT exam: Present: normal oropharynx, mucous membranes moist, TM's normal bilaterally Neck exam: Present: normal inspection. Absent: tenderness, meningismus Respiratory exam: Present: normal lung sounds bilaterally. Absent: respiratory distress, wheezes Cardiovascular Exam: Present: regular rate, normal rhythm GI/Abdominal exam: Present: soft. Absent: distended, tenderness, guarding Extremities exam: Present: normal inspection, normal capillary refill. Absent: pedal edema Neurological exam: Present: alert, oriented X3, CN II-XII intact. Absent: motor sensory deficit Psychiatric exam: Present: normal affect, normal mood Skin exam: Present: warm, dry, intact. Absent: cyanosis, diaphoretic Course Vital Signs 03/16/21 03/16/21 09:31 10:20 Temperature 98.4 F Pulse Rate 82 75 Respiratory 18 16 Rate Blood Pressure 135/87 126/93 O2 Sat by Pulse 96 96 Oximetry EKG Findings - EKG Comments: EKG Findings:: Normal sinus rhythm, rate of 81, TX interval 152, QRS duration 82, QTC 429, no ST segment elevation Medical Decision Making - Medical Decision Making 65 yo patient presented with sore throat, bilateral ear pain. She does report this as a burning sensation. She is well-appearing stable vitals. She had some upper back pain and I was concerned this may be an atypical presentation for ACS. Therefore workup was initiated including EKG, chest x-ray, laboratory testing. She has normal labs, negative troponin, nonischemic EKG, chest x-ray is clear. Given the burning sensation in her throat will increase her omeprazole to twice daily. She will follow-up with her primary care physician and return as needed. - Lab Data Result diagrams: 03/16/21 10:10 03/16/21 10:10 Lab Results 03/16/21 03/16/21 03/16/21 Range/Units 10:10 10:10 10:10 WBC 6.3 (3.8-10.6) k/uL RBC 4.91 (3.80-5.40) m/uL Hgb 15.4 (11.4-16.0) gm/dL Hct 44.2 (34.0-46.0) % MCV 89.9 (80.0-100.0) fL MCH 31.4 (25.0-35.0) pg MCHC 34.9 (31.0-37.0) g/dL RDW 13.1 (11.5-15.5) % Plt Count 215 (150-450) k/uL MPV 8.3 Neutrophils % 73 % Lymphocytes % 14 % Monocytes % 7 % Eosinophils % 2 % Basophils % 1 % Neutrophils # 4.6 (1.3-7.7) k/uL Lymphocytes # 0.9 L (1.0-4.8) k/uL Monocytes # 0.4 (0-1.0) k/uL Eosinophils # 0.2 (0-0.7) k/uL Basophils # 0.1 (0-0.2) k/uL PT 9.5 (9.0-12.0) sec INR 0.9 (<1.2) APTT 22.9 (22.0-30.0) sec Sodium 138 (137-145) mmol/L Potassium 4.6 (3.5-5.1) mmol/L Chloride 106 (98-107) mmol/L Carbon Dioxide 24 (22-30) mmol/L Anion Gap 8 mmol/L BUN 21 H (7-17) mg/dL Creatinine 0.82 (0.52-1.04) mg/dL Est GFR (CKD-EPI)AfAm 88 (>60 ml/min/1.73 sqM) Est GFR (CKD-EPI)NonAf 77 (>60 ml/min/1.73 sqM) Glucose 116 H (74-99) mg/dL Calcium 10.6 H (8.4-10.2) mg/dL Magnesium 2.0 (1.6-2.3) mg/dL Total Bilirubin 1.3 (0.2-1.3) mg/dL AST 28 (14-36) U/L ALT 29 (4-34) U/L Alkaline Phosphatase 87 (38-126) U/L Troponin I (0.000-0.034) ng/mL Total Protein 7.3 (6.3-8.2) g/dL Albumin 4.7 (3.5-5.0) g/dL 03/16/21 Range/Units 10:10 WBC (3.8-10.6) k/uL RBC (3.80-5.40) m/uL Hgb (11.4-16.0) gm/dL Hct (34.0-46.0) % MCV (80.0-100.0) fL MCH (25.0-35.0) pg MCHC (31.0-37.0) g/dL RDW (11.5-15.5) % Plt Count (150-450) k/uL MPV Neutrophils % % Lymphocytes % % Monocytes % % Eosinophils % % Basophils % % Neutrophils # (1.3-7.7) k/uL Lymphocytes # (1.0-4.8) k/uL Monocytes # (0-1.0) k/uL Eosinophils # (0-0.7) k/uL Basophils # (0-0.2) k/uL PT (9.0-12.0) sec INR (<1.2) APTT (22.0-30.0) sec Sodium (137-145) mmol/L Potassium (3.5-5.1) mmol/L Chloride (98-107) mmol/L Carbon Dioxide (22-30) mmol/L Anion Gap mmol/L BUN (7-17) mg/dL Creatinine (0.52-1.04) mg/dL Est GFR (CKD-EPI)AfAm (>60 ml/min/1.73 sqM) Est GFR (CKD-EPI)NonAf (>60 ml/min/1.73 sqM) Glucose (74-99) mg/dL Calcium (8.4-10.2) mg/dL Magnesium (1.6-2.3) mg/dL Total Bilirubin (0.2-1.3) mg/dL AST (14-36) U/L ALT (4-34) U/L Alkaline Phosphatase (38-126) U/L Troponin I <0.012 (0.000-0.034) ng/mL Total Protein (6.3-8.2) g/dL Albumin (3.5-5.0) g/dL Disposition Clinical Impression: Viral syndrome, Gastric reflux Disposition: HOME SELF-CARE Condition: Good Instructions (If sedation given, give patient instructions): Viral Syndrome (ED), Gastroesophageal Reflux Disease (DC) Additional Instructions: Please increase your omeprazole to 20 mg twice daily. Please return with any worsening or changing symptoms. Please follow up with primary care physician as soon as possible. Is patient prescribed a controlled substance at d/c from ED?: No Referrals: Carmelita Chadwick MD [Primary Care Provider] - 1-2 days Time of Disposition: 11:46
[2021-03-16 10:47] LABS: Basophils # (A) 0.1 k/uL (0-0.2); Basophils % (A) 1 %; Eosinophils # (A) 0.2 k/uL (0-0.7); Eosinophils % (A) 2 %; HCT 44.2 % (34.0-46.0); HGB 15.4 gm/dL (11.4-16.0); Lymphocytes # (A) 0.9 k/uL (1.0-4.8); Lymphocytes % (A) 14 %; MCH 31.4 pg (25.0-35.0); MCHC 34.9 g/dL (31.0-37.0); MCV 89.9 fL (80.0-100.0); Mean Platelet Volume 8.3; Monocytes # (A) 0.4 k/uL (0-1.0); Monocytes % (A) 7 %; Neutrophils # (A) 4.6 k/uL (1.3-7.7); Neutrophils % (A) 73 %; Platelet Count 215 k/uL (150-450); RBC 4.91 m/uL (3.80-5.40); RDW 13.1 % (11.5-15.5); WBC 6.3 k/uL (3.8-10.6)
[2021-03-16 10:55] LABS: INR 0.9 (<1.2); Partial Thromboplastin Time 22.9 sec (22.0-30.0); Prothrombin Time 9.5 sec (9.0-12.0)
[2021-03-16 11:11] LABS: Albumin 4.7 g/dL (3.5-5.0); Calcium 10.6 mg/dL (8.4-10.2); Potassium 4.6 mmol/L (3.5-5.1); Total Bilirubin 1.3 mg/dL (0.2-1.3); Total Protein 7.3 g/dL (6.3-8.2)
--- NOTE | 2021-03-16 11:38 | XR ---
EXAMINATION TYPE: XR chest 2V DATE OF EXAM: 03/16/2021 COMPARISON: Chest x-ray 10/09/2019 HISTORY: Chest pain TECHNIQUE: Frontal and lateral views of the chest are obtained. FINDINGS: There is no focal air space opacity, pleural effusion, or pneumothorax seen. The cardiac silhouette size is within normal limits. The osseous structures are intact, postop change noted to the cervical spine. There are overlying leads. Surgical clips are present in the upper abdomen. IMPRESSION: No acute cardiopulmonary process.
[2021-03-16 11:59] VITALS: BP 109/73; PULSE 69
== END 2021-03-16 12:08 | disposition home or self-care (01) ==
LOC: EC 09:23
DX: B34.9 Viral infection, unspecified (principal); K21.9 Gastro-esophageal reflux disease without esophagitis; I10 Essential (primary) hypertension; J44.9 Chronic obstructive pulmonary disease, unspecified; E07.9 Disorder of thyroid, unspecified; F41.9 Anxiety disorder, unspecified; F43.12 Post-traumatic stress disorder, chronic; F32.9 Major depressive disorder, single episode, unspecified; Z79.84 Long term (current) use of oral hypoglycemic drugs; Z86.73 Personal history of transient ischemic attack (TIA), and cerebral infarction without residual deficits; Z90.89 Acquired absence of other organs; Z90.49 Acquired absence of other specified parts of digestive tract; Z90.710 Acquired absence of both cervix and uterus; Z87.891 Personal history of nicotine dependence
CPT/HCPCS: 36415; 71046; 80053; 83735; 84484; 85025; 85610; 85730; 93005; 99284

== ENCOUNTER 2021-03-22 19:15 | Emergency (ER) | payer MEDICARE ==
[2021-03-22 19:26] VITALS: TEMP 98.5
[2021-03-22] MEDS ORDERED: SODIUM CHLORIDE 0.9% 1,000 ML IV STA (21:22)
[2021-03-22] MEDS ORDERED: MORPHINE SULFATE 4 MG/ML SYRINGE IVP STA (21:22)
[2021-03-22 22:11] LABS: Basophils # (A) 0.1 k/uL (0-0.2); Basophils % (A) 1 %; Eosinophils # (A) 0.3 k/uL (0-0.7); Eosinophils % (A) 2 %; HCT 46.5 % (34.0-46.0); HGB 15.2 gm/dL (11.4-16.0); Lymphocytes % (A) 9 %; MCH 30.4 pg (25.0-35.0); MCHC 32.7 g/dL (31.0-37.0); Mean Platelet Volume 8.1; Monocytes # (A) 0.7 k/uL (0-1.0); Monocytes % (A) 6 %; Neutrophils # (A) 9.2 k/uL (1.3-7.7); Neutrophils % (A) 80 %; Platelet Count 228 k/uL (150-450); RDW 12.9 % (11.5-15.5); WBC 11.5 k/uL (3.8-10.6)
[2021-03-22 22:26] LABS: ALT 28 U/L (4-34); AST 27 U/L (14-36); African American GFR (CKD) >90 (>60 ml/min/1.73 sqM); Albumin 4.9 g/dL (3.5-5.0); Alkaline Phosphatase 86 U/L (38-126); Anion Gap 10 mmol/L; Blood Urea Nitrogen 14 mg/dL (7-17); Calcium 10.4 mg/dL (8.4-10.2); Carbon Dioxide 24 mmol/L (22-30); Chloride 107 mmol/L (98-107); Glucose 108 mg/dL (74-99); Non-African American GFR(CKD) 88 (>60 ml/min/1.73 sqM); Potassium 4.4 mmol/L (3.5-5.1); Sodium 141 mmol/L (137-145); Total Bilirubin 1.1 mg/dL (0.2-1.3); Total Protein 7.6 g/dL (6.3-8.2)
--- NOTE | 2021-03-22 22:40 | CT ---
EXAMINATION TYPE: CT soft tissue neck w con DATE OF EXAM: 03/22/2021 COMPARISON: 02/12/2018 HISTORY: Rt side swelling, dysphagia, odynophagia. CT DLP: 299.5 mGycm Automated exposure control for dose reduction was used. CONTRAST: Performed with IV Contrast, patient injected with 100 mL of Isovue 300. There is normal branching pattern of the great vessels on the aortic arch. Thyroid gland appears inta ct. There is arterial flow in the carotid and vertebral arteries. There is contrast opacification of the jugular veins. The parotid glands are symmetric. Submandibular salivary glands are symmetric. The tongue appears normal. Epiglottis is normal. I see no evidence of a pharyngeal mass. There is enlarg ement of the right side possible compared to the left. This measures 2.8 x 1.9 cm. There is multilevel cervical spine fusion surgery with metal artifact. There is fusion from C4 to C7. There is mild hypertrophic cervical facet arthropathy. Prevertebral soft tissues are not thickened. I see no significant cervical adenopathy. IMPRESSION: There is enlargement of the right side tonsil. No significant cervical adenopathy. Tonsils and enlarg ement appears new compared to old exam. No evidence of an abscess.
[2021-03-22] MEDS ORDERED: cefTRIAXone IN SWFI 1,000 MG/10 ML SYRINGE IVP STA (23:00)
[2021-03-22] MEDS ORDERED: DEXAMETHASONE SOD PHOSPHATE 10 MG/ML 1 ML VIAL IV STA (23:00)
[2021-03-22 23:14] VITALS: BP 126/87; PULSE 94; RESP 19
[2021-03-22] MEDS ORDERED: ACET/COD 300 MG/30 MG STARTER PACK 6 TAB BTL PO STA (23:15)
[2021-03-22] MEDS ORDERED: MORPHINE SULFATE 2 MG/ML SYRINGE IVP STA (23:15)
--- NOTE | 2021-03-22 23:19 | ED ---
General Adult HPI - General Chief complaint: ENT Stated complaint: Difficulty Swallowing Time Seen by Provider: 03/22/21 21:03 Source: patient Mode of arrival: ambulatory Limitations: no limitations - History of Present Illness Initial comments: 65-year-old female presents to the emergency room for a chief complaint of hypertension. Patient states she has had a sore throat for 2 weeks. States it is painful to swallow. States she sometimes doesn't want to swallow her saliva because it hurts. States she has trouble swallowing but is able to do so. Patient is able to swallow fluids. Patient states she saw her doctor and was referred to ENT. They were thinking it was likely related to gastric reflux.Patient has no other complaints at this time including shortness of breath, chest pain, abdominal pain, nausea or vomiting, headache, or visual changes. - Related Data Home Medications Medication Instructions Recorded Confirmed Losartan Potassium 100 mg PO DAILY 07/11/17 10/08/20 Atorvastatin Calcium [Lipitor] 40 mg PO DAILY 10/08/20 10/08/20 Cholecalciferol [Vitamin D3 (25 25 mcg PO DAILY 10/08/20 10/08/20 Mcg = 1000 Iu)] Fluticasone Nasal [place] [Flonase 1 spray EA NOSTRIL BID PRN 10/08/20 10/08/20 Nasal [place]] Metoprolol Succinate (ER) [Toprol 100 mg PO DAILY 10/08/20 10/08/20 Xl] Prevident 5000 Plus 1.1% 1 applicate DENTAL HS 10/08/20 10/08/20 Spironolactone 50 mg PO DAILY 10/08/20 10/08/20 metFORMIN HCL ER [Glucophage Xr] 500 mg PO BID 10/08/20 10/08/20 Previous Rx's Medication Instructions Recorded Amoxicillin/Potassium Clav 1 tab PO Q12HR #20 tab 03/22/21 [Augmentin 875-125 Tablet] Allergies Allergy/AdvReac Type Severity Reaction Status Date / Time hydrochlorothiazide Allergy Unknown Verified 03/22/21 19:23 Review of Systems ROS Statement: Those systems with pertinent positive or pertinent negative responses have been documented in the HPI. ROS Other: All systems not noted in ROS Statement are negative. Past Medical History Past Medical History: COPD, CVA/TIA, Hypertension, Neurologic Disorder, Sleep Apnea/CPAP/BIPAP, Thyroid Disorder Additional Past Medical History / Comment(s): has had bloody discharge from rt nipple, Current bronchitis on antibiotics, states has "canker sore" on tongue, STates no residual effects from TIA, back pain, osteoporosis: patient states her hip bones are deteriorating bilaterally this, has burning numbness and tingling from hips to feet bilaterally. "thickening of esophagus". History of Any Multi-Drug Resistant Organisms: None Reported Past Surgical History: Adenoidectomy, Section, Cholecystectomy, Hysterectomy, Orthopedic Surgery, Tonsillectomy Additional Past Surgical History / Comment(s): Rt breast bx, x4, disc fusions in the neck (c4-C7) and back Moreno bunionectomy, moreno cataract surgery, rt shoulder surgery, left breast bx at age 16 (findings benign) Past Anesthesia/Blood Transfusion Reactions: Postoperative Nausea & Vomiting (PONV) Additional Past Anesthesia/Blood Transfusion Reaction / Comment(s): No blood transfusion to date Past Psychological History: Anxiety, Depression, PTSD Smoking Status: Former smoker Past Alcohol Use History: None Reported Past Drug Use History: None Reported - Past Family History Father Family Medical History: Dementia, Hypertension, Neurologic Disorder Additional Family Medical History / Comment(s): Parkinson's Son(s) Family Medical History: Asthma Mother Additional Family Medical History / Comment(s): TIA. General Exam Limitations: no limitations General appearance: alert, in no apparent distress Head exam: Present: atraumatic Eye exam: Present: normal appearance, PERRL, EOMI. Absent: scleral icterus, conjunctival injection ENT exam: Present: normal oropharynx (There is slight fullness of the peritonsillar area on the right. However oropharynx is patent. She is handling oral secretions. She has no difficulty swallowing or breathing.), mucous membranes moist, TM's normal bilaterally, normal external ear exam Neck exam: Present: normal inspection, full ROM. Absent: tenderness Respiratory exam: Present: normal lung sounds bilaterally. Absent: respiratory distress, wheezes Cardiovascular Exam: Present: regular rate, normal rhythm, normal heart sounds Course Vital Signs 03/22/21 19:23 Temperature 98.5 F Pulse Rate 90 Respiratory 20 Rate Blood Pressure 137/81 O2 Sat by Pulse 96 Oximetry Medical Decision Making - Medical Decision Making Vitals are stable. Patient is well-appearing. She is handling secretions. HPI and physical exam as documented. CT soft tissue neck with contrast shows enlargement of right-sided tonsil. No significant cervical adenopathy. Tonsils and enlargement appeared new compared to old exam. No evidence of an abscess. I did discuss this case with Dr. Smith as patient has had a tonsillectomy in the past and I did see some slight fullness in the right peritonsillar pillars. However he reports that she could still have some tonsillar tissue remaining after tonsillectomy which is likely what we are seeing. He did verify that she does not have an abscess and this is more inflammatory. Her strep was negative here today. However patient has not yet been on antibiotics for this. Therefore we will start her on a dose of Rocephin and Augmentin at home. She has an appointment with her ENT doctor in 2 days. Did discuss that she will likely still need a scope given physical exam findings. If she has worsening symptoms she will return here. On reevaluation before discharge patient is resting comfortably and sleeping. We will give her another dose of pain medication so this will last her for the evening. - Lab Data Result diagrams: 03/22/21 21:51 03/22/21 21:51 Lab Results 03/22/21 03/22/21 03/22/21 Range/Units 21:51 21:51 21:51 WBC 11.5 H (3.8-10.6) k/uL RBC 5.00 (3.80-5.40) m/uL Hgb 15.2 (11.4-16.0) gm/dL Hct 46.5 H (34.0-46.0) % MCV 93.0 (80.0-100.0) fL MCH 30.4 (25.0-35.0) pg MCHC 32.7 (31.0-37.0) g/dL RDW 12.9 (11.5-15.5) % Plt Count 228 (150-450) k/uL MPV 8.1 Neutrophils % 80 % Lymphocytes % 9 % Monocytes % 6 % Eosinophils % 2 % Basophils % 1 % Neutrophils # 9.2 H (1.3-7.7) k/uL Lymphocytes # 1.0 (1.0-4.8) k/uL Monocytes # 0.7 (0-1.0) k/uL Eosinophils # 0.3 (0-0.7) k/uL Basophils # 0.1 (0-0.2) k/uL Sodium 141 (137-145) mmol/L Potassium 4.4 (3.5-5.1) mmol/L Chloride 107 (98-107) mmol/L Carbon Dioxide 24 (22-30) mmol/L Anion Gap 10 mmol/L BUN 14 (7-17) mg/dL Creatinine 0.73 (0.52-1.04) mg/dL Est GFR (CKD-EPI)AfAm >90 (>60 ml/min/1.73 sqM) Est GFR (CKD-EPI)NonAf 88 (>60 ml/min/1.73 sqM) Glucose 108 H (74-99) mg/dL Calcium 10.4 H (8.4-10.2) mg/dL Total Bilirubin 1.1 (0.2-1.3) mg/dL AST 27 (14-36) U/L ALT 28 (4-34) U/L Alkaline Phosphatase 86 (38-126) U/L Total Protein 7.6 (6.3-8.2) g/dL Albumin 4.9 (3.5-5.0) g/dL Heterophile Antibody Negative (Negative) Group A Strep Rapid (Negative) 03/22/21 Range/Units 21:51 WBC (3.8-10.6) k/uL RBC (3.80-5.40) m/uL Hgb (11.4-16.0) gm/dL Hct (34.0-46.0) % MCV (80.0-100.0) fL MCH (25.0-35.0) pg MCHC (31.0-37.0) g/dL RDW (11.5-15.5) % Plt Count (150-450) k/uL MPV Neutrophils % % Lymphocytes % % Monocytes % % Eosinophils % % Basophils % % Neutrophils # (1.3-7.7) k/uL Lymphocytes # (1.0-4.8) k/uL Monocytes # (0-1.0) k/uL Eosinophils # (0-0.7) k/uL Basophils # (0-0.2) k/uL Sodium (137-145) mmol/L Potassium (3.5-5.1) mmol/L Chloride (98-107) mmol/L Carbon Dioxide (22-30) mmol/L Anion Gap mmol/L BUN (7-17) mg/dL Creatinine (0.52-1.04) mg/dL Est GFR (CKD-EPI)AfAm (>60 ml/min/1.73 sqM) Est GFR (CKD-EPI)NonAf (>60 ml/min/1.73 sqM) Glucose (74-99) mg/dL Calcium (8.4-10.2) mg/dL Total Bilirubin (0.2-1.3) mg/dL AST (14-36) U/L ALT (4-34) U/L Alkaline Phosphatase (38-126) U/L Total Protein (6.3-8.2) g/dL Albumin (3.5-5.0) g/dL Heterophile Antibody (Negative) Group A Strep Rapid Negative (Negative) Disposition Clinical Impression: Pharyngitis, Neck pain Disposition: HOME SELF-CARE Condition: Good Instructions (If sedation given, give patient instructions): Pharyngitis (ED) Additional Instructions: Please take antibiotic as directed. Follow up with ENT on Saturday at your appointment as you will still likely need a scope. Return to the emergency room for any worsening symptoms. Prescriptions: Amoxicillin/Potassium Clav [Augmentin 875-125 Tablet] 1 tab PO Q12HR #20 tab Is patient prescribed a controlled substance at d/c from ED?: No Referrals: Carmelita Chadwick MD [Primary Care Provider] - 1-2 days Time of Disposition: 23:15
== END 2021-03-22 23:38 | disposition home or self-care (01) ==
LOC: EC 19:15
DX: J02.9 Acute pharyngitis, unspecified (principal); M54.2 Cervicalgia; J44.9 Chronic obstructive pulmonary disease, unspecified; I10 Essential (primary) hypertension; Z86.73 Personal history of transient ischemic attack (TIA), and cerebral infarction without residual deficits; Z88.8 Allergy status to other drugs, medicaments and biological substances; Z79.899 Other long term (current) drug therapy
CPT/HCPCS: 99284; 96374; 96375; 96376; 96361; 36415; 80053; 85025; 86308; 87081; 87430; 70491; J2270 ×2; J1100; J0696; Q9967

== ENCOUNTER → 2021-06-21 | Outpatient (CLI) | payer MEDICARE ==
--- NOTE | 2021-06-21 11:10 | BD ---
EXAMINATION TYPE: Axial Bone Density DATE OF EXAM: 06/21/2021 COMPARISON: NONE CLINICAL HISTORY: Height: 64 Weight: 184.5 FRAX RISK QUESTIONS: Alcohol (3 or more units per day): no Family History (Parent hip fracture): no Glucocorticoids (More than 3mos): no (Ex: prednisone, prednisolone, methylprednisolone, dexamethasone, and hydrocortisone). History of Fracture in Adulthood: no Secondary Osteoporosis: 1. Type 1 Diabetes: no 2. Hyperthyroidism: no 3. Menopause before 45: no 4. Malnutrition: no 5. Chronic liver disease: no Rheumatoid Arthritis: no Current Tobacco Use: yes RISK FACTORS HISTORY OF: Surgery to Spine/Hip(right/left)/Wrist (right/left): c- spine surgery When: 5 years ago Family History of Osteoporosis: yes Active: yes Diet low in dairy products/other sources of calcium: yes Postmenopausal woman: yes Lost more than 2 inches in height since high school: no MEDICATIONS: toporol, atorvastatin, losartan,aldactone Additional History: EXAM MEASUREMENTS: Bone mineral densitometry was performed using the Tier 1 Performance System. Bone mineral density as measured about the Lumbar spine is: ----- L1-L4(G/cm2): 1.092 T Score Values are as follows: ----- L2: -0.5 ----- L3: -1.8 ----- L4: -0.8 ----- L1-L4: -0.7 Bone mineral density has: decreased -5.0 % since study of: 05.28.2019 Bone mineral density about the R hip (g/cm2): 0.778 Bone mineral density about the L hip (g/cm2): 0.791 T Score values are as follows: -----R Neck: -1.9 -----L Neck: -1.8 -----R Total: -1.4 -----L Total: -1.1 Bone mineral density has: decreased -1.5 % since study of: 05.28.2019 IMPRESSION: Osteopenia NOTE: T-SCORE=SD OF THE YOUNG ADULT MEAN.
--- NOTE | 2021-06-26 12:11 | MM ---
Reason for exam: screening (asymptomatic). Last mammogram was performed 1 year ago. History: Patient is postmenopausal and has history of high-risk lesion on a previous biopsy at age 62. Family history of breast cancer in paternal aunt. Benign MG pre op needle loc RT of the right breast, November 12, 2018. US discontinued breast core RT of the right breast, October 17, 2018. High risk US biopsy breast VAD RT of the right breast, March 05, 2018. US discontinued breast bx RT of the right breast, January 13, 2018. Excisional biopsy of the left breast. Physical Findings: A clinical breast exam by your physician is recommended on an annual basis and results should be correlated with mammographic findings. MG 3D Screening Mammo W/Cad Bilateral CC and MLO view(s) were taken. Prior study comparison: June 20, 2020, bilateral MG 3d screening mammo w/cad. May 22, 2019, bilateral MG 3d diag mammo w/cad [facility]. The breast tissue is heterogeneously dense. This may lower the sensitivity of mammography. No significant changes when compared with prior studies. ASSESSMENT: Negative, BI-RAD 1 RECOMMENDATION: Routine screening mammogram of both breasts in 1 year.
== END | disposition home or self-care (01) ==
LOC: RADMAMWWP 10:05
PROVIDERS: ATTEND Family Medicine
DX: Z12.31 Encounter for screening mammogram for malignant neoplasm of breast (principal); M85.89 Other specified disorders of bone density and structure, multiple sites; Z78.0 Asymptomatic menopausal state; Z80.3 Family history of malignant neoplasm of breast
CPT/HCPCS: 77063; 77067; 77080

== ENCOUNTER → 2022-07-05 | Outpatient (CLI) | payer MEDICARE ==
--- NOTE | 2022-07-05 11:45 | CTL ---
EXAMINATION TYPE: CT Low Dose Lung DATE OF EXAM ORDERED: 07/05/2022 HISTORY: . Lung cancer screening CT DLP: 81.[address] CTDI: 2.4 mGy Automated exposure control for dose reduction was used. SCREENING VISIT: COMPARISON: 01/23/2021 TECHNIQUE: Low dose computed tomography scan was performed through the chest at 1 mm thick sections a nd reconstructed images in multiple planes at 1 mm and [address] DIAGNOSTIC QUALITY: Satisfactory FINDINGS: LUNG NODULES: Scattered micronodules measuring 3 mm or smaller in size seen are stable. LUNGS: COPD: Severity: None Fibrosis: Severity: None Lymph nodes: None greater than 1 cm Other findings: None RIGHT PLEURAL SPACE: Effusion: None Calcification: None Thickening: None Pneumothorax: None LEFT PLEURAL SPACE: Effusion: None Calcification: None Thickening: None Pneumothorax: None HEART: Heart Size: Mildly Enlarged Coronary Calcification: Mild Pericardial Effusion: None OTHER FINDINGS: Upper abdomen: Postcholecystectomy clips Bony thorax: Surgical change of the spine with multilevel hypertrophic and degenerative changes. Supraclavicular region: None Other: None IMPRESSION: CT LUNG RAD AND CT CHEST RECOMMENDATION: Lung-Rad 2 Benign Appearance or Behavior: Continue annual sc reening with LDCT in 12 months. S Modifier (other clinically significant findings): S
== END | disposition home or self-care (01) ==
LOC: RADCTMAIN 09:56
PROVIDERS: ATTEND Family Medicine
DX: Z12.2 Encounter for screening for malignant neoplasm of respiratory organs (principal); Z87.891 Personal history of nicotine dependence
CPT/HCPCS: 71271

== ENCOUNTER → 2022-09-18 | Outpatient (CLI) | payer MEDICARE ==
--- NOTE | 2022-10-05 10:13 | P.CEMON ---
Event monitor shows sinus mechanism with sinus tachycardia Occasional PVCs and ventricular couplets When the patient complained of lightheadedness the ECG strips revealed sinus rhythm in the 80s
== END | disposition home or self-care (01) ==
LOC: RADECHMAIN 12:01
PROVIDERS: ATTEND Family Medicine
DX: I49.3 Ventricular premature depolarization (principal); R00.2 Palpitations; R42 Dizziness and giddiness; R00.0 Tachycardia, unspecified
CPT/HCPCS: 93270

== ENCOUNTER 2023-01-08 08:25 | Emergency (ER) | payer MEDICARE ==
[2023-01-08 08:42] VITALS: BP 120/84; PULSE 82; RESP 18; TEMP 98.5
[2023-01-08] MEDS ORDERED: HYDROcodone/APAP 5-325MG 1 EACH TAB PO STA (08:48)
[2023-01-08] MEDS ORDERED: KETOROLAC 15 MG/ML 1 ML VIAL IM STA (08:48)
--- NOTE | 2023-01-08 09:03 | ED ---
Extremity Problem HPI - General Chief complaint: Extremity Problem,Nontraumatic Stated complaint: Left foot pain Time Seen by Provider: 01/08/23 08:34 Source: patient, RN notes reviewed Mode of arrival: ambulatory Limitations: no limitations - History of Present Illness Initial comments: This is a 67-year-old female who presents to the emergency department for left foot pain. States that this started approximately one month ago. It is underneath the foot in the arch and near the left heel. Pain is worse with her first few steps in the morning and if she is sedentary for a long period of time before getting up. She is unable to see her primary care provider for a month, and does not believe that she could wait that long. She is taking ibuprofen with no relief in symptoms. Denies any history of similar symptoms in the past. Also denies any injuries. Denies any fevers, chills, sore throat, cough, dyspnea, chest pain, palpitatio ns, abdominal pain, nausea, vomiting, diarrhea, back pain, or headaches. MD Complaint: extremity pain Onset/Timin -: month(s) Location: left, other (foot) - Related Data Home Medications Medication Instructions Recorded Confirmed Losartan Potassium 100 mg PO DAILY 07/11/17 10/08/20 Atorvastatin Calcium [Lipitor] 40 mg PO DAILY 10/08/20 10/08/20 Cholecalciferol [Vitamin D3 (25 25 mcg PO DAILY 10/08/20 10/08/20 Mcg = 1000 Iu)] Fluticasone Nasal [place] [Flonase 1 spray EA NOSTRIL BID PRN 10/08/20 10/08/20 Nasal [place]] Metoprolol Succinate (ER) [Toprol 100 mg PO DAILY 10/08/20 10/08/20 Xl] Prevident 5000 Plus 1.1% 1 applicate DENTAL HS 10/08/20 10/08/20 Spironolactone 50 mg PO DAILY 10/08/20 10/08/20 metFORMIN HCL ER [Glucophage Xr] 500 mg PO BID 10/08/20 10/08/20 Previous Rx's Medication Instructions Recorded Amoxicillin/Potassium Clav 1 tab PO Q12HR #20 tab 03/22/21 [Augmentin 875-125 Tablet] Ketorolac [Toradol] 10 mg PO Q6HR PRN #15 tab 01/08/23 Allergies Allergy/AdvReac Type Severity Reaction Status Date / Time hydrochlorothiazide Allergy Unknown Verified 01/08/23 08:41 Review of Systems ROS Statement: Those systems with pertinent positive or pertinent negative responses have been documented in the HPI. ROS Other: All systems not noted in ROS Statement are negative. Past Medical History Past Medical History: COPD, CVA/TIA, Hypertension, Neurologic Disorder, Sleep Apnea/CPAP/BIPAP, Thyroid Disorder Additional Past Medical History / Comment(s): has had bloody discharge from rt nipple, Current bronchitis on antibiotics, states has "canker sore" on tongue, STates no residual effects from TIA, back pain, osteoporosis: patient states her hip bones are deteriorating bilaterally this, has burning numbness and tingling from hips to feet bilaterally. "thickening of esophagus". History of Any Multi-Drug Resistant Organisms: None Reported Past Surgical History: Adenoidectomy, Section, Cholecystectomy, Hysterectomy, Orthopedic Surgery, Tonsillectomy Additional Past Surgical History / Comment(s): Rt breast bx, x4, disc fusions in the neck (c4-C7) and back Edilma bunionectomy, edilma cataract surgery, rt shoulder surgery, left breast bx at age 16 (findings benign) Past Anesthesia/Blood Transfusion Reactions: Postoperative Nausea & Vomiting (PONV) Additional Past Anesthesia/Blood Transfusion Reaction / Comment(s): No blood transfusion to date Past Psychological History: Anxiety, Depression, PTSD Smoking Status: Former smoker Past Alcohol Use History: None Reported Past Drug Use History: None Reported - Past Family History Father Family Medical History: Dementia, Hypertension, Neurologic Disorder Additional Family Medical History / Comment(s): Parkinson's Son(s) Family Medical History: Asthma Mother Additional Family Medical History / Comment(s): TIA. General Exam Limitations: no limitations General appearance: alert, in no apparent distress Head exam: Present: atraumatic, normocephalic, normal inspection Respiratory exam: Present: normal lung sounds bilaterally. Absent: respiratory distress, wheezes, rales, rhonchi, stridor Cardiovascular Exam: Present: regular rate, normal rhythm, normal heart sounds. Absent: systolic murmur, diastolic murmur, rubs, gallop, clicks Extremities exam: Present: other (Tenderness to palpation along the left plantar fascia and near the calcaneus. Dorsiflexion of the toes reproduces pain. There are no overlying deformities, erythema, ecchymosis, or swelling. 2+ DP and PT pulses. Capillary refill <1 second.) Neurological exam: Present: alert, oriented X3, CN II-XII intact Psychiatric exam: Present: normal affect, normal mood Skin exam: Present: warm, dry, intact, normal color. Absent: rash Course Vital Signs 01/08/23 08:39 Temperature 98.5 F Pulse Rate 82 Respiratory 18 Rate Blood Pressure 120/84 O2 Sat by Pulse 96 Oximetry Medical Decision Making - Medical Decision Making This is a 67-year-old female who presents to the emergency department for left foot pain. Was pt. sent in by a medical professional or institution? @ -No Did you speak to anyone other than the patient for history? @ -No Did you review nursing and triage notes? @ -Yes, and I agree, it is accurate with regards to the patient's symptoms. Were old charts reviewed? @ -No Differential Diagnosis? @ -Differential Foot Pain: Fracture, dislocation, contusion, plantar fasciitis, this is not meant to be an all-inclusive list. EKG interpreted by me (3pts min.)? @ -Not obtained X-rays interpreted by me (1pt min.)? @ -X-ray of the left foot obtained. My interpretation identifies no acute fractures. CT interpreted by me (1pt min.)? @ -Not obtained U/S interpreted by me (1pt. min.)? @ -Not obtained What testing was considered but not performed? (CT, X-rays, U/S, labs)? Why? @ -None What meds were considered but not given? Why? @ -None Did you discuss the management of the patient with other professionals? @ -No Did you reconcile home meds? @ -No Was smoking cessation discussed for >3mins.? @ -No Was critical care preformed (if so, how long)? @ -No Were there social determinants of health that impacted care today? How? (Homelessness, low income, unemployed, alcoholism, drug addiction, transportation, low edu. Level, literacy, decrease access to med. care, skilled nursing, rehab)? @ -No Was there de-escalation of care discussed even if they declined? (Discuss DNR or withdrawal of care, Hospice)? @ -No What co-morbidities impacted this encounter? (DM, HTN, Smoking, COPD, CAD, Cancer, CVA, Hep., AIDS, mental health diagnosis, sleep apnea, morbid obesity)? @ -None Was patient admitted / discharged? @ -Discharged. X-ray of the left foot obtained revealing a plantar heel spur with a small calcification adjacent to the origin of the plantar fascia. Per radiology, this could reflect a sequela of plantar fasciitis or an underlying fascial injury. The patient's symptoms are very consistent with plantar fasciitis. I advised she sleep in a splint to keep her toes pointed in the air, which will gently stretch the fascia. Also advised applying ice for 15-20 minutes every 2-3 hours. The importance of supportive foot care was also discussed. Prescription for Toradol provided with dosing instructions reviewed. Patient is instructed to take the Toradol with Tylenol if needed and avoid any other iatl-[id number]-vxfosxg anti-inflammatories such as ibuprofen with the Toradol. Information for podiatry follow-up provided. She is instructed to contact them for a follow-up appointment for further evaluation. Undiagnosed new problem with uncertain prognosis? @ -None Drug Therapy requiring intensive monitoring for toxicity (Heparin, Nitro, Insulin, Cardizem)? @ -None Were any procedures done? @ -None Diagnosis/symptom? @ -Plantar fasciitis, left Acute, or Chronic, or Acute on Chronic? @ -Acute Uncomplicated (without systemic symptoms) or Complicated (systemic symptoms)? @ -Uncomplicated Side effects of treatment? @ -None Exacerbation, Progression, or Severe Exacerbation] @ -Not applicable Poses a threat to life or bodily function? @ -No Return precautions reviewed in depth, the patient is instructed to return to the emergency department with any new, worsening, or concerning symptoms. Patient ve rbalized understanding. This case was discussed in detail with the attending ED physician, Dr. James. Presentation, findings, and treatment plan discussed in detail as well. - Radiology Data Radiology results: report reviewed, image reviewed Disposition Clinical Impression: Plantar fasciitis of left foot Disposition: HOME SELF-CARE Instructions (If sedation given, give patient instructions): Plantar Fasciitis (ED) Additional Instructions: Return to the emergency department with any new, worsening, or concerning symptoms. Take the Toradol with Tylenol as needed for pain relief. If you take the Toradol, do not take ibuprofen or any other anti-inflammatories. Make sure you are wearing supportive footwear. Purchase a night splint for the plantar fasciitis. This will keep your toes pointed up when you sleep and gently stretch the plantar fascia. This may take several uses to start becoming effective. Apply ice for 15-20 minutes every 2-3 hours. Contact any of the podiatrists as listed below for a follow-up appointment. Follow up with your primary care provider in 1-2 days. Prescriptions: Ketorolac [Toradol] 10 mg PO Q6HR PRN #15 tab PRN Reason: Pain Is patient prescribed a controlled substance at d/c from ED?: No Referrals: Carmelita Chadwick MD [Primary Care Provider] - 1-2 days Salena Melgar DPM [REFERRING] - 1-2 days Brigido Johnson DPM [STAFF PHYSICIAN] - 1-2 days
--- NOTE | 2023-01-08 09:19 | XR ---
EXAMINATION TYPE: XR foot complete 3 views LT DATE OF EXAM: 01/08/2023 Comparison: 12/13/2014 Clinical History: 67-year-old female with left foot pain Findings: Previous bunionectomy. Mild degenerative change first MTP joint. Small plantar heel spur. Some additi onal calcification adjacent to the origin of the plantar fascia. Otherwise, no acute fracture, sublux ation, or dislocation. Impression: Plantar heel spur with small calcification just adjacent at the origin of the plantar fascia. Finding s could reflect sequela of plantar fasciitis or underlying fascial injury. Clinically correlate.
[2023-01-08] MEDS ORDERED: ACET/COD 300 MG/30 MG STARTER PACK 6 TAB BTL PO STA (09:37)
== END 2023-01-08 09:55 | disposition home or self-care (01) ==
LOC: EC 08:25
DX: M72.2 Plantar fascial fibromatosis (principal); I10 Essential (primary) hypertension; J44.9 Chronic obstructive pulmonary disease, unspecified; Z79.899 Other long term (current) drug therapy; Z87.891 Personal history of nicotine dependence; Z88.8 Allergy status to other drugs, medicaments and biological substances
CPT/HCPCS: 73630; 99283; 96372; J1885

== ENCOUNTER → 2023-10-25 | Outpatient (CLI) | payer MEDICARE ==
--- NOTE | 2023-10-25 11:44 | CTL ---
EXAMINATION TYPE: CT Low Dose Lung DATE OF EXAM ORDERED: 10/25/2023 HISTORY: Lung cancer screening CT DLP: 132.[address] CTDI: 3.5 mGy Automated exposure control for dose reduction was used. COMPARISON: 07/05/2022 TECHNIQUE: Low dose computed tomography scan was performed through the chest at 1 mm thick sections a nd reconstructed images in multiple planes at 1 mm and [address] DIAGNOSTIC QUALITY: Satisfactory FINDINGS: There are few stable scattered sub-3 mm micronodules. There is no new or suspicious lung mass or nodu le. There is no abnormal airspace/consolidative density or abnormal interstitial density. There is no pleural effusion, pleural thickening or pneumothorax. The great vessels chest are normal there is no mediastinal, hilar or axillary adenopathy. Limited scanning through the upper abdomen reveals cholecystectomy. No focal osseous lesions are seen. IMPRESSION: 1. Lung RADS category 2 benign findings. Continue routine screening at yearly intervals. 2. No acute cardiopulmonary disease.
--- NOTE | 2023-10-28 19:28 | MM ---
Reason for Exam: Screening (asymptomatic). Last mammogram was performed 1 year(s) and 3 month(s) ago. Patient History: Menarche at age 14. First Full-Term at age 20. Hysterectomy at age 40. Postmenopausal. Excisional Biopsy on the Left side. 11/12/2018, Benign Core Biopsy on the right side. 03/05/2018, High risk Core Biopsy on the right side. 10/17/2018, US discontinued breast core RT on the right side. 01/13/2018, US discontinued breast bx RT on the right side. Paternal aunt had breast cancer. Risk Values: Kristy 5 year model risk: 1.8%. NCI Lifetime model risk: 6.8%. Prior Study Comparison: 06/20/2020 Bilateral Screening Mammogram, [facility]. 06/21/2021 Bilateral Screening Mammogram, [facility]. 08/02/2022 Bilateral MG 3D screening mammo w/cad, [facility]. Tissue Density: There are scattered areas of fibroglandular density. Findings: Analyzed By CAD. Focal asymmetry outer aspect of the anterior right breast is become more defined. This may represent superimposition shadow but further evaluation is recommended. Otherwise, no significant change. Overall Assessment: Incomplete: need additional imaging evaluation, BI-RAD 0 Management: Special View Mammogram of the right breast. Diagnostic Breast Ultrasound of the right breast. Include a 3-D CC rolled view. [facility] will attempt to contact patient to return for supplemental views and ultrasound if indicated. Electronically signed and approved by: Chitra Castillo M.D. Radiologist
== END | disposition home or self-care (01) ==
LOC: RADCTMAIN 08:44
PROVIDERS: ATTEND Family Medicine
DX: Z12.31 Encounter for screening mammogram for malignant neoplasm of breast (principal); Z12.2 Encounter for screening for malignant neoplasm of respiratory organs; Z80.3 Family history of malignant neoplasm of breast; Z78.0 Asymptomatic menopausal state; Z87.891 Personal history of nicotine dependence
CPT/HCPCS: 71271; 77063; 77067

== ENCOUNTER → 2023-10-31 | Outpatient (CLI) | payer MEDICARE ==
--- NOTE | 2023-10-31 15:32 | MM ---
Reason for Exam: Additional evaluation requested from abnormal screening. Last screening mammogram was performed less than 1 month ago. Patient History: Menarche at age 14. First Full-Term at age 20. Hysterectomy at age 40. Postmenopausal. Excisional Biopsy on the Left side. 11/12/2018, Benign Core Biopsy on the right side. 03/05/2018, High risk Core Biopsy on the right side. 10/17/2018, US discontinued breast core RT on the right side. 01/13/2018, US discontinued breast bx RT on the right side. Paternal aunt had breast cancer. Risk Values: Kristy 5 year model risk: 1.8%. NCI Lifetime model risk: 6.8%. Prior Study Comparison: 10/08/2017 Bilateral Screening Mammogram, [facility]. 10/02/2018 Right Diagnostic Mammogram, [facility]. 06/21/2021 Bilateral Screening Mammogram, [facility]. 08/02/2022 Bilateral MG 3D screening mammo w/cad, [facility]. 10/25/2023 Bilateral MG 3D screening mammo w/cad, [facility]. Tissue Density: Right: The breasts are heterogeneously dense, which may obscure small masses. Findings: Analyzed By CAD. On additional views, the questioned area of distortion anterior aspect of the right breast becomes less defined with an appearance similar to the prior exams, and in keeping with site of previous excision. No significant change from prior exams. Overall Assessment: Benign, BI-RAD 2 Management: Screening Mammogram of both breasts in 1 year. . Results were given to the patient verbally at the time of exam. Patient should continue monthly self-breast exams. A clinical breast exam by your physician is recommended on an annual basis. This exam should not preclude additional follow-up of suspicious palpable abnormalities. Note on Kristy scores and lifetime risk: 1. A Kristy score greater than 3% is considered moderate risk. If this is the case, consider specialist referral to assess eligibility for a risk reducing agent. 2. If overall lifetime risk for the development of breast cancer is 20% or higher, the patient may qualify for future screening with alternating mammogram and breast MRI. Electronically signed and approved by: Chitra Castillo M.D. Radiologist
== END | disposition home or self-care (01) ==
LOC: RADMAMWWP 14:05
PROVIDERS: ATTEND Family Medicine
DX: R92.331 Mammographic heterogeneous density, right breast (principal); Z80.3 Family history of malignant neoplasm of breast; Z78.0 Asymptomatic menopausal state
CPT/HCPCS: 77065; G0279; 77061

== ENCOUNTER → 2023-11-25 | Outpatient (CLI) | payer MEDICARE ==
--- NOTE | 2023-11-25 11:07 | FL ---
EXAMINATION TYPE: FL barium swallow DATE OF EXAM: 11/25/2023 CLINICAL INDICATION: 67-year-old female R13.10, R11.10, food/liquid getting stuck, fullness and tight ness with vomiting. COMPARISON: None Total Fluoroscopy Time: 2 minutes 22 seconds 489.99 mGycm2 DAP 63 images obtained. FINDINGS: C4-C7 ACDF. The swallowing mechanism is normal and hypopharyngeal anatomy is preserved. The cervical and thoracic portions have a normal course and caliber. Mild to moderate tertiary perist altic waves are demonstrated with some blunted secondary stripping waves. This results in delayed estrellita arance of contrast from the distal esophagus. The mucosa is normal and no persistent filling defect is encountered. No hiatal hernia is present. No gastroesophageal reflux is identified. IMPRESSION: 1. No stricture or abnormal filling defect. No hiatal hernia or girdle seen. 2. Mild to moderate esophageal dysmotility.
== END | disposition home or self-care (01) ==
LOC: RADUSWWP 09:51
PROVIDERS: ATTEND Family Medicine
DX: K22.4 Dyskinesia of esophagus (principal); R11.10 Vomiting, unspecified; R13.10 Dysphagia, unspecified
CPT/HCPCS: 74220

== ENCOUNTER → 2024-02-06 | Outpatient (CLI) | payer MEDICARE ==
--- NOTE | 2024-03-10 09:13 | MR ---
Patient: Karina Patel Ordering Physician: Unknown, Unknown ID: [id number] Phone, Pager: Phone: N /A Pager: N/A : [phone] Age/Gender: 68Y, F Primary Location: N/A Procedure: MR brain/orbits wo/w con Study Date: 02/06/2024 12:16:19 PM EXAMINATION TYPE: MR brain/orbits wo/w con DATE OF EXAM: 02/23/2024 8:47 PM CLINICAL INDICATION: Blurred right vision COMPARISON: 06/10/2020. TECHNIQUE: Multi planar, multi sequence imaging was performed through the orbits/face. Post contrast imaging was performed after the administration of 7 cc Gadavist intravenously. FINDINGS, ORBITS: The globes appear symmetrical. Bilaterally aphakia. Orbital contents are otherwise intact. Signal intensity of the optic nerves are within normal limits. The intraorbital fat appears preserved. Both lacrimal glands are unremarkable. The extraocular muscles appear symmetric. After a dministration of contrast, no abnormal enhancement is seen. FINDINGS, BRAIN: The verduzco-white junctions, ventricular system, and cisterns do appear unremarkable. Diffusion-weighted imaging shows no evidence of restricted diffusion. Patchy areas of high T2 signa l intensity are seen within the periventricular white matter. Cavernous sinus is within normal limit s. After administration of contrast, no abnormal enhancement is seen within the brain. The bone marrow signal is within normal limits. Paranasal sinuses and mastoid air cells: No significant paranasal sinus disease. IMPRESSION: 1. No evidence of intraorbital mass or significant abnormality. 2. No evidence of intracranial mass nor acute/subacute CVA accident. 3. Nonspecific white matter changes are identified likely small vessel ischemic disease.
== END | disposition home or self-care (01) ==
LOC: RADMRIMAIN 13:00
PROVIDERS: ATTEND Ophthalmology
DX: H43.813 Vitreous degeneration, bilateral (principal); R90.82 White matter disease, unspecified
CPT/HCPCS: 70543; 70553; A9585

== ENCOUNTER → 2024-02-20 | Outpatient (CLI) | payer MEDICARE ==
[2024-02-21 01:47] LABS: Blood Urea Nitrogen 16.4 mg/dL (9.0-27.0); Calcium 9.8 mg/dL (8.7-10.3); Carbon Dioxide 23.9 mmol/L (21.6-31.8); Chloride 106 mmol/L (96-109); Glucose 122 mg/dL (70-110); Potassium 4.8 mmol/L (3.5-5.5); Sodium 142 mmol/L (135-145)
== END | disposition home or self-care (01) ==
LOC: LABWHC1 16:09
PROVIDERS: ATTEND Internal Medicine Interventional Cardiology
DX: N18.9 Chronic kidney disease, unspecified (principal)
CPT/HCPCS: 36415; 80048

== ENCOUNTER → 2024-03-10 | Day surgery (SDC) | payer MEDICARE, OTHER ==
[2024-03-04 11:48] VITALS: BMI 29.7
[~2024-03-10] MED LIST changes: +PROPOFOL 10 MG/ML 20 ML VIAL IV ONE; -REGADENOSON 0.4 MG/5 ML SYRINGE IV ONE
[2024-03-10 12:56] VITALS: RESP 16; TEMP 97.9
[2024-03-10] MEDS: LIDOCAINE 1% (10MG/ML) FOR IV START INTRADERMA ONE (13:05)
[2024-03-10] MEDS: IV FLUID CONTINUATION 1,000 ML IV ONE (13:05)
[2024-03-10] MEDS: LACTATED RINGERS 1,000 ML IV SCH (13:05)
--- NOTE | 2024-03-10 13:32 | P.GSHP ---
History of Present Illness H&P Date: 03/10/24 Chief Complaint: Positive Cologuard 68-year-old female here for colonoscopy. She is unsure when her last colonoscopy was and who did it. Patient did a recent stool test and she was positive on the Cologuard study. No bowel complaints. No family history of colon cancer. Past Medical History Past Medical History: CVA/TIA, Hyperlipidemia, Hypertension, Neurologic Disorder, Sleep Apnea/CPAP/BIPAP, Thyroid Disorder Additional Past Medical History / Comment(s): Current bronchitis STates no residual effects from TIA, back pain, osteoporosis: patient states her hip bones are deteriorating bilaterally this, has burning numbness and tingling from hips to feet bilaterally. "thickening of esophagus". History of Any Multi-Drug Resistant Organisms: None Reported Past Surgical History: Adenoidectomy, Breast Surgery, Section, Cholecystectomy, Hysterectomy, Orthopedic Surgery, Tonsillectomy Additional Past Surgical History / Comment(s): Rt breast bx, x4, disc fusions in the neck (c4-C7) and back [place] bunionectomy, moreno cataract surgery, rt shoulder surgery, left breast bx at age 16 (findings benign) Past Anesthesia/Blood Transfusion Reactions: Postoperative Nausea & Vomiting (PONV) Additional Past Anesthesia/Blood Transfusion Reaction / Comment(s): No blood transfusion to date Smoking Status: Former smoker - Past Family History Father Family Medical History: Dementia, Hypertension, Neurologic Disorder Additional Family Medical History / Comment(s): Parkinson's Son(s) Family Medical History: Asthma Mother Additional Family Medical History / Comment(s): TIA. Medications and Allergies Home Medications Medication Instructions Recorded Confirmed Type Losartan Potassium 100 mg PO DAILY 07/11/17 03/04/24 History Atorvastatin Calcium [Lipitor] 40 mg PO DAILY 10/08/20 03/04/24 History Metoprolol Succinate (ER) [Toprol 100 mg PO DAILY 10/08/20 03/04/24 History Xl] Omeprazole 20 mg PO DAILY 03/04/24 03/04/24 History Spironolactone 25 mg PO DAILY 03/04/24 03/04/24 History Allergies Allergy/AdvReac Type Severity Reaction Status Date / Time hydrochlorothiazide Allergy Rash/Hives Verified 03/04/24 11:36 Surgical - Exam Vital Signs Temp Pulse Resp BP Pulse Ox 97.9 F 82 16 121/79 96 03/10/24 12:54 03/10/24 12:54 03/10/24 12:54 03/10/24 12:54 03/10/24 12:54 Physical exam: General: Well-developed, well-nourished HEENT: Normocephalic, sclerae nonicteric Abdomen: Nontender, nondistended Extremities: No edema Neuro: Alert and oriented Assessment and Plan (1) Abnormal stool test Narrative/Plan: Will proceed with colonoscopy at this time. Current Visit: Yes Status: Acute Code(s): R19.5 - OTHER FECAL ABNORMALITIES SNOMED Code(s): 764713333
--- NOTE | 2024-03-10 13:44 | P.PCN ---
Date of Procedure: 03/10/24 Procedure(s) Performed: PREOPERATIVE DIAGNOSIS: Abnormal stool test POSTOPERATIVE DIAGNOSIS: Rectal polyp x 2 PROCEDURE: Colonoscopy with snare polypectomy ANESTHESIA: MAC SURGEON: Zach Chadwick M.D. SPECIMENS: Rectal polyp ENDOSCOPIC PROCEDURE: The patient was placed on the endoscopy table in the left decubitus position. The Olympus colonoscope was inserted into the anus and passed under direct visualization to the base of the cecum. The appendiceal orifice was visualized. From that point the scope was slowly withdrawn inspecting all surfaces carefully. There were no neoplastic inflammatory or polypoid lesions throughout the cecum, ascending, transverse, descending, and sigmoid colon. In the rectum there were 2 small polyps removed using the snare with cautery technique. The remainder of the rectum was normal. There was no visible diverticulosis. Digital rectal examination was normal. The patient was taken to the recovery room in stable condition per anesthesia guidelines. RECOMMENDATIONS: Await biopsy results. Repeat colonoscopy pending pathology results.
[2024-03-10 14:08] VITALS: BP 117/75; PULSE 72
== END ==
LOC: ORWHC2ENDO 12:21
PROVIDERS: ATTEND Surgery
DX: K62.1 Rectal polyp (principal); E78.5 Hyperlipidemia, unspecified; M81.0 Age-related osteoporosis without current pathological fracture; I10 Essential (primary) hypertension; G47.33 Obstructive sleep apnea (adult) (pediatric); Z86.73 Personal history of transient ischemic attack (TIA), and cerebral infarction without residual deficits; Z87.891 Personal history of nicotine dependence; Z90.49 Acquired absence of other specified parts of digestive tract; Z90.710 Acquired absence of both cervix and uterus; Z79.899 Other long term (current) drug therapy
CPT/HCPCS: 88305; 45385; J2704

== ENCOUNTER 2025-01-11 09:58 | Emergency (ER) | payer MEDICARE ==
[2025-01-11 10:02] VITALS: RESP 18
--- NOTE | 2025-01-11 10:16 | ED ---
General Adult HPI - General Chief complaint: Extremity Problem,Nontraumatic Stated complaint: Shoulder pain Time Seen by Provider: 01/11/25 10:07 Source: patient Mode of arrival: ambulatory Limitations: no limitations - History of Present Illness Initial comments: This is a 69-year-old female with history including CVA, hypertension hyperlipidemia presenting for left shoulder pain (04/02) x 7 days. Patient notes a "pulling" pain that wakes her during the night. States pain worsens with movement. Endorses some right hand tingling/weakness, noting she has dropped silverware because of this. Denies trauma prior to start of pain or [id number] medication use. Denies neck pain but endorses history of cervical spine surgeries and fusions. Denies lower extremity swelling, color change, chest pain, dyspnea. Onset/Timin -: days(s) Location: left, upper extremity Severity scale (1-10): 10 Consistency: intermittent Improves with: immobilization Worsens with: movement Associated Symptoms: denies other symptoms Treatments Prior to Arrival: none - Related Data Home Medications Medication Instructions Recorded Confirmed Losartan Potassium 100 mg PO DAILY 07/11/17 03/04/24 Atorvastatin Calcium [Lipitor] 40 mg PO DAILY 10/08/20 03/04/24 Metoprolol Succinate (ER) [Toprol 100 mg PO DAILY 10/08/20 03/04/24 Xl] Omeprazole 20 mg PO DAILY 03/04/24 03/04/24 Spironolactone 25 mg PO DAILY 03/04/24 03/04/24 Previous Rx's Medication Instructions Recorded Ibuprofen [Motrin] 800 mg PO Q8HR PRN #30 tab 01/11/25 Allergies Allergy/AdvReac Type Severity Reaction Status Date / Time hydrochlorothiazide Allergy Rash/Hives Verified 03/04/24 11:36 Review of Systems ROS Statement: Those systems with pertinent positive or pertinent negative responses have been documented in the HPI. ROS Other: All systems not noted in ROS Statement are negative. Past Medical History Past Medical History: CVA/TIA, Hyperlipidemia, Hypertension, Neurologic Disorder, Sleep Apnea/CPAP/BIPAP, Thyroid Disorder Additional Past Medical History / Comment(s): Current bronchitis STates no res idual effects from TIA, back pain, osteoporosis: patient states her hip bones are deteriorating bilaterally this, has burning numbness and tingling from hips to feet bilaterally. "thickening of esophagus". History of Any Multi-Drug Resistant Organisms: None Reported Past Surgical History: Adenoidectomy, Breast Surgery, Section, Cholecystectomy, Hysterectomy, Orthopedic Surgery, Tonsillectomy Additional Past Surgical History / Comment(s): Rt breast bx, x4, disc fusions in the neck (c4-C7) and back Edilma bunionectomy, edilma cataract surgery, rt shoulder surgery, left breast bx at age 16 (findings benign) Past Anesthesia/Blood Transfusion Reactions: Postoperative Nausea & Vomiting (PONV) Additional Past Anesthesia/Blood Transfusion Reaction / Comment(s): No blood transfusion to date Past Psychological History: Anxiety, Depression, PTSD Smoking Status: Former smoker Past Alcohol Use History: None Reported Past Drug Use History: None Reported - Past Family History Father Family Medical History: Dementia, Hypertension, Neurologic Disorder Additional Family Medical History / Comment(s): Parkinson's Son(s) Family Medical History: Asthma Mother Additional Family Medical History / Comment(s): TIA. General Exam Limitations: no limitations General appearance: alert, in no apparent distress Head exam: Present: atraumatic, normocephalic, normal inspection Eye exam: Present: normal appearance, PERRL, EOMI. Absent: scleral icterus, conjunctival injection, periorbital swelling ENT exam: Present: normal exam, mucous membranes moist Neck exam: Present: normal inspection. Absent: tenderness, meningismus, lymphadenopathy Respiratory exam: Present: normal lung sounds bilaterally. Absent: respiratory distress, wheezes, rales, rhonchi, stridor Cardiovascular Exam: Present: regular rate, normal rhythm, normal heart sounds. Absent: systolic murmur, diastolic murmur, rubs, gallop, clicks GI/Abdominal exam: Present: soft, normal bowel sounds. Absent: distended, te nderness, guarding, rebound, rigid Extremities exam: Present: normal inspection, full ROM, normal capillary refill. Absent: tenderness, pedal edema, joint swelling, calf tenderness Back exam: Present: other (Positive empty can pain/weakness (4/5) and Turner. Negative apprehension, belly press, liftoff. Patient notes pain when attempting to place and on lower back. Distal LUE neurovascular and motor function intact. Right hand scow hand strength 5/5 with neurovascular intact). Absent: tenderness Neurological exam: Present: alert, oriented X3, CN II-XII intact Psychiatric exam: Present: normal affect, normal mood Skin exam: Present: warm, dry, intact, normal color. Absent: rash Course Vital Signs 01/11/25 09:59 Temperature 97.9 F Pulse Rate 67 Respiratory 18 Rate Blood Pressure 142/87 O2 Sat by Pulse 97 Oximetry Medical Decision Making - Medical Decision Making Was pt. sent in by a medical professional or institution (, DRAGAN, PROFESSIONAL NURSE, urgent ca re, hospital, or fdc...) When possible be specific @ -[No] Did you speak to anyone other than the patient for history (EMS, parent, family, police, friend...)? What history was obtained from this source @ -[No] Did you review nursing and triage notes (agree or disagree)? Why? @ -[I reviewed and agree with nursing and triage notes] Were old charts reviewed (outside hosp., previous admission, EMS record, old EKG, old radiological studies, urgent care reports/EKG's, fdc records)? Report findings @ -[No old charts were reviewed] Differential Diagnosis (chest pain, altered mental status, abdominal pain women, abdominal pain men, vaginal bleeding, weakness, fever, dyspnea, syncope, headache, dizziness, GI bleed, back pain, seizure, CVA, palpatations, mental health, musculoskeletal)? @ -Differential Musculoskeletal Muscular strain, contusion, ligament sprain, fracture, arthritis, septic arthritis, bursitis, cellulitis, muscle spasm, nerve compression, DVT, arterial occlusion, herpes zoster, electrolyte abnormality, tumor.... This is not meant to be in all inclusive list EKG interpreted by me (3pts min.). @ -Done X-rays interpreted by me (1pt min.). @ -[None done] CT interpreted by me (1pt min.). @ -[None done] U/S interpreted by me (1pt. min.). @ -[None done] What testing was considered but not performed or refused? (CT, X-rays, U/S, labs)? Why? @ -[None] What meds were considered but not given or refused? Why? @ -[None] Did you discuss the management of the patient with other professionals (professionals i.e. , DRAGAN, PROFESSIONAL NURSE, lab, RT, psych nurse, licensed social worker, venetian blind worker, teacher, aboriginal liaison officer, upper caser)? Give summary @ -[No] Was smoking cessation discussed for >3mins.? @ -[No] Was critical care preformed (if so, how long)? @ -[No] Were there social determinants of health that impacted care today? How? (Homelessness, low income, unemployed, alcoholism, drug addiction, transportation, low edu. Level, literacy, decrease access to med. care, [facility], rehab)? @ -[No] Was there de-escalation of care discussed even if they declined (Discuss DNR or withdrawal of care, Hospice)? DNR status @ -[No] What co-morbidities impacted this encounter? (DM, HTN, Smoking, COPD, CAD, Cancer, CVA, ARF, Chemo, Hep., AIDS, mental health diagnosis, sleep apnea, morbid obesity)? @ -[None] Was patient admitted / discharged? Hospital course, mention meds given and route, prescriptions, significant lab abnormalities, going to OR and other pertinent info. @ -[hospital course] Undiagnosed new problem with uncertain prognosis? @ -[No] Drug Therapy requiring intensive monitoring for toxicity (Heparin, Nitro, Insulin, Cardizem)? @ -[No] Were any procedures done? @ -[No] Diagnosis/symptom? @ -[default] Acute, or Chronic, or Acute on Chronic? @ -Acute Uncomplicated (without systemic symptoms) or Complicated (systemic symptoms)? @ -Uncomplicated Side effects of treatment? @ -[No] Exacerbation, Progression, or Severe Exacerbation? @ -[No] Poses a threat to life or bodily function? How? (Chest pain, [place], [place], pneumonia, PE, COPD, DKA, ARF, appy, cholecystitis, CVA, Diverticulitis, Homicidal, Suicidal, threat to staff... and all critical care pts) @ -[No] Disposition Clinical Impression: Strain of rotator cuff of left shoulder Disposition: HOME SELF-CARE Condition: Fair Instructions (If sedation given, give patient instructions): Rotator Cuff Injury (ED) Additional Instructions: Rest shoulder but do not immobilize for extended periods of time. Alternate Tylenol/Motrin every 4 hours for pain. Follow-up with orthopedics for any ongoing shoulder pain. Prescriptions: Ibuprofen [Motrin] 800 mg PO Q8HR PRN #30 tab PRN Reason: Pain Is patient prescribed a controlled substance at d/c from ED?: No Referrals: Carmelita Chadwick MD [Primary Care Provider] - 1-2 days [facility] [Provider Group] - 1-2 days [facility] [Provider Group] - 1-2 days Time of Disposition: 11:12
--- NOTE | 2025-01-11 10:42 | XR ---
EXAMINATION TYPE: XR shoulder complete LT DATE OF EXAM: 01/11/2025 10:23 AM COMPARISON: None. CLINICAL INDICATION: Female, 69 years old with history of Atraumatic shoulder pain, Pain TECHNIQUE: XR shoulder complete LT view(s) obtained. FINDINGS: The humeral head articulates with the glenoid. The acromio-clavicular junction is normal. No acute fractures or dislocations are evident. A follow up study can be performed 7-10 days from acute trauma for continued pain. MRI can be perfor med if soft tissue evaluation would be of benefit. IMPRESSION: 1. No acute osseous left shoulder abnormality. [facility], Workstation: [facility], 01/11/2025 10:39 AM
[2025-01-11] MEDS: ACETAMINOPHEN TAB 500 MG TAB PO STA (10:49)
[2025-01-11] MEDS: KETOROLAC 15 MG/ML 1 ML VIAL IM STA (10:50)
[2025-01-11 11:22] VITALS: BP 124/76; PULSE 60; TEMP 97.6
== END 2025-01-11 11:22 | disposition home or self-care (01) ==
LOC: EC 09:58
DX: S46.012A Strain of muscle(s) and tendon(s) of the rotator cuff of left shoulder, initial encounter (principal); Z87.891 Personal history of nicotine dependence; Z86.73 Personal history of transient ischemic attack (TIA), and cerebral infarction without residual deficits; Z88.8 Allergy status to other drugs, medicaments and biological substances; X50.0XXA Overexertion from strenuous movement or load, initial encounter
CPT/HCPCS: 73030; 99283; 96372; J1885